=== PATIENT | female | born 1975 | race Caucasian/White ===

== ENCOUNTER 2021-08-26 09:34 | Inpatient (IN) | payer BC, SELFPAY ==
[2021-08-26] VITALS (14 sets, daily range): BP systolic 161–205; BP diastolic 94–125; PULSE 16–117; RESP 16–26; TEMP 36.8–37.6; O2SAT 89–97; BMI 28.3
--- NOTE | ~2021-08-26 | XR_ITS ---
EXAMINATION: XR CHEST CLINICAL INFORMATION: Hypoxia COMPARISON: None TECHNIQUE: Frontal view of the chest was obtained. FINDINGS: The cardiac and mediastinal contours are normal. The lung volumes are low. There are bilateral infiltrates, greatest at the lung bases. Covid infection should be considered. There is no pleural effusion or pneumothorax. There are are degenerative changes of the spine. XR/XR chest 1V IMPRESSION: Bilateral infiltrates.
[2021-08-26 10:11] LABS: COVID-19 Test Positive (Negative); IDNOW Serial# 9DD0AD1C
--- NOTE | 2021-08-26 10:11 | ECG_ITS ---
Test Reason : sob Blood Pressure : / mmHG Vent. Rate : 111 BPM Atrial Rate : 111 BPM P-R Int : 126 ms QRS Dur : 080 ms QT Int : 334 ms P-R-T Axes : 056 017 041 degrees QTc Int : 454 ms Sinus tachycardia Possible Left atrial enlargement Moderate voltage criteria for LVH, may be normal variant ( R in aVL , Donis product ) Borderline ECG No previous ECGs available Referred By: Mansi Nicole Electronically Signed By:MUNDO CARPENTER MD
[2021-08-26] MEDS: dexAMETHasone sod phosphate 4 MG/ML VIAL 6 MG IVPUSH (10:27)
[2021-08-26] MEDS: Albuterol Sulfate 90 MCG 8 GM INHALER 4 PUFF INHALE ×3 (10:34→20:17)
--- NOTE | 2021-08-26 10:54 | ED_ITS ---
HPI - General Adult General Chief complaint: General Medical Stated complaint: PERSISTENT SOB Time Seen by Provider: 08/26/21 09:59 Source: patient and EMS Mode of arrival: EMS History of Present Illness HPI narrative: 46-year-old female with no significant past medical history presenting to the ED complaining of dry cough, SOB, chest tightness, hypertension/tachycardia and hypoxia x3 days s/p obtaining 1st dose of Pfizer COVID-19 vaccine. denies fever, chills, abdominal pain, nausea, vomiting, LE edema, calf pain, history of blood clots, sick contacts, recent travel Related Data Home Medications Medication Instructions Recorded Confirmed albuterol sulfate 90 mcg/actuation 2 puff INHALATION Q4H PRN 08/26/21 08/26/21 aerosol inhaler multivitamin 1 tab PO DAILY 08/26/21 08/26/21 naproxen sodium 220 mg tablet 220 mg PO BID PRN 08/26/21 08/26/21 (Aleve) Allergies Allergy/AdvReac Type Severity Reaction Status Date / Time No Known Allergies Allergy Unverified 08/26/21 10:10 Review of Systems Review of Systems: Constitutional: No Fever, No Chills,No Fatigue, No Malaise ENT/Mouth: No Ear Pain, No sore throat, No Rhinorrhea, No Swallowing Difficulty Eyes: No Eye Pain, No Swelling, No Redness, No Vision Changes Cardiovascular: + Chest tightness, + SOB, No Dyspnea on Exertion, No Orthopnea, No Edema, No Palpitations Respiratory: + Cough, No Sputum, No Wheezing Gastrointestinal: No Nausea, No Vomiting, No Diarrhea, No Constipation, No Abdominal pain Genitourinary: No Dysuria, No Urinary Frequency, No Flank Pain,No Hesitancy Musculoskeletal: No joint pain, No Myalgias, No Joint Swelling Skin: No Skin Lesions, No rash Neuro: No Weakness, No Dizziness, No Headache Yes all other systems are reviewed and are negative [facility] Past Medical History Attestation statement: The following information was validated with the patient. Social History Social History Smoked in Last 30 Days: No Use of substances other than those prescribed or required for medical reasons: No Advance Directives: No Advance Directives Information Provided: Yes Physical Exam Vital Signs: Vital Signs: Last Vital Signs Temp 99.7 F 08/26/21 11:29 Pulse 96 08/26/21 12:45 Resp 22 H 08/26/21 11:29 BP 180/110 H 08/26/21 12:45 Pulse Ox 94 08/26/21 11:29 Body Mass Index 28.3 Const: General: cooperative, alert and awake Orientation/consciousness: patient oriented x3 Limitations: no limitations HENMT: Head: Yes normal to inspection Ears: hearing grossly normal bilaterally General nose exam: Normal external nose present Face and sinus: Yes normal facial exam Eyes: General: appearance normal, both eyes and all related structures EOM: EOMs intact bilaterally Neck: Neck: Yes normal visual inspection and Yes no meningeal signs Resp: Effort & Inspection: normal respiratory effort Auscultation: clear to auscultation bilaterally, no rales, no rhonchi and no wheezes Cardio: Rate: regular rate and tachycardic Heart sounds: S1 normal heart sound present and S2 normal heart sound present GI: Inspection: Yes normal to inspection Palpation (GI): Soft to palpation, nontender and no guarding Skin: Rashes: no rashes Wounds: no wounds Neuro: General: patient oriented x3 and no meningeal signs Gait exam (Neuro): Normal gait present Extrem: General: Yes normal to inspection, Yes no pedal edema and Yes no calf tenderness Course Course Course Narrative: -1100-- COVID-19 positive -1224-- no leukocytosis, H&H stable. D-dimer negative > PE unlikely. Glucose 327, AST/ ALT elevated, ferritin/LDH/ CRP elevated XR chest 1V IMPRESSION: Bilateral infiltrates. >> IV Ceftriaxone and Azithromycin ordered -BP still very elevated > 10mg IV Labetolol ordered. Plan for admission Medical Decision Making [facility] Narrative Medical decision making narrative: 46-year-old female with no significant past medical history presenting to the ED complaining of dry cough, SOB, chest tightness, hypertension/tachycardia and hypoxia x3 days s/p obtaining 1st dose of i'mma COVID-19 vaccine. on exam hypertensive, tachycardic, satting 89% on RA increased to 93% on 2L NC, lungs CTA, no pedal edema. Concern for COVID-19 /viral syndrome vs PE. Rule out ACS and pneumonia. Plan: EKG, labs, COVID-19 testing, CXR, Albuterol, Decadron, re-evaluation Lab Data Result diagrams: 08/26/21 11:11 08/26/21 11:11 Labs: Lab Results 08/26/21 08/26/21 08/26/21 Range/Units 09:57 11:11 11:11 WBC 6.3 (4.8-10.8) X10*3/uL RBC 5.63 H (4.20-5.50) X10*6/uL Hgb 14.9 (12.0-16.0) g/dl Hct 46.1 (37.0-47.0) % MCV 81.9 (80.0-98.0) fL MCH 26.5 L (27.0-33.0) pg MCHC 32.3 (31.0-35.0) g/dl RDW 14.3 (11.0-16.0) % Plt Count 214 (160-400) X10*3/uL MPV 9.5 (9.4-12.3) fL Immature Gran % (Auto) Cancelled Neut % (Auto) Cancelled Lymph % (Auto) Cancelled [place] % (Auto) Cancelled Eos % (Auto) Cancelled Baso % (Auto) Cancelled Lymph # (Auto) Cancelled [place] # (Auto) Cancelled Eos # (Auto) Cancelled Baso # (Auto) Cancelled Abs Immat Gran (auto) Cancelled Absolute Neuts (auto) Cancelled Absolute Nucleated RBC 0.000 (0.0-0.012) X10*3/uL Nucleated RBC % (auto) 0.0 (0.0-0.2) /100WBC Neutrophils % (Manual) 76 H (45-73) % Band Neutrophils % 0 L (3-5) % Lymphocytes % (Manual) 13 L (20-40) % Atypical Lymphs % (Man) 4 (0-6) % Monocytes % (Manual) 5 (2-11) % Basophils % (Manual) 2 (0-2) % Abs Neuts (Manual) 4.8 (2.0-8.3) X10*3/uL Lymphocytes # (Manual) 0.8 L (1.2-4.9) X10*3/uL Atyp Lymphs # (Manual) 0.3 x10*3/uL Monocytes # (Manual) 0.3 (0.1-1.2) X10*3/uL Basophils # (Manual) 0.1 (0.0-0.2) X10*3/uL Platelet Estimate NORMAL (NORMAL) Plt Morphology Comment NORMAL RBC Morphology NORMAL D-Dimer High Sensitivty 187 NG/ML Sodium (135-145) mmol/L Potassium (3.3-5.1) mmol/L Chloride (96-108) mmol/L Carbon Dioxide (22-29) mmol/L Anion Gap (12-20) BUN (9-16) mg/dL Creatinine (0.5-1.4) mg/dL Estim Creat Clear Calc Estimated GFR Random Glucose (60-115) mg/dL Lactic Acid (0.5-2.0) mmol/L Calcium (8.4-10.2) mg/dL Magnesium (1.6-2.6) mg/dL Ferritin (10-250) ng/mL Total Bilirubin (0.0-1.0) mg/dL Direct Bilirubin (0.0-0.5) mg/dL AST (5-31) U/L ALT (0-31) U/L Alkaline Phosphatase (39-117) U/L Lactate Dehydrogenase (122-220) U/L Troponin I High Sens (<3.5-17.0) ng/L C-Reactive Protein (< or = 0.50) mg/dL B-Natriuretic Peptide (<100) pg/mL Total Protein (6.5-8.0) g/dL Albumin (3.5-5.0) g/dL COVID-19 ([facility]) Positive A (Negative) COVID-19 Clin Com See Note 08/26/21 08/26/21 08/26/21 Range/Units 11:11 11:11 11:11 WBC (4.8-10.8) X10*3/uL RBC (4.20-5.50) X10*6/uL Hgb (12.0-16.0) g/dl Hct (37.0-47.0) % MCV (80.0-98.0) fL MCH (27.0-33.0) pg MCHC (31.0-35.0) g/dl RDW (11.0-16.0) % Plt Count (160-400) X10*3/uL MPV (9.4-12.3) fL Immature Gran % (Auto) Neut % (Auto) Lymph % (Auto) [place] % (Auto) Eos % (Auto) Baso % (Auto) Lymph # (Auto) [place] # (Auto) Eos # (Auto) Baso # (Auto) Abs Immat Gran (auto) Absolute Neuts (auto) Absolute Nucleated RBC (0.0-0.012) X10*3/uL Nucleated RBC % (auto) (0.0-0.2) /100WBC Neutrophils % (Manual) (45-73) % Band Neutrophils % (3-5) % Lymphocytes % (Manual) (20-40) % Atypical Lymphs % (Man) (0-6) % Monocytes % (Manual) (2-11) % Basophils % (Manual) (0-2) % Abs Neuts (Manual) (2.0-8.3) X10*3/uL Lymphocytes # (Manual) (1.2-4.9) X10*3/uL Atyp Lymphs # (Manual) x10*3/uL Monocytes # (Manual) (0.1-1.2) X10*3/uL Basophils # (Manual) (0.0-0.2) X10*3/uL Platelet Estimate (NORMAL) Plt Morphology Comment RBC Morphology D-Dimer High Sensitivty NG/ML Sodium 138 (135-145) mmol/L Potassium 3.8 (3.3-5.1) mmol/L Chloride 104 (96-108) mmol/L Carbon Dioxide 21 L (22-29) mmol/L Anion Gap 17 (12-20) BUN 9 (9-16) mg/dL Creatinine 0.72 (0.5-1.4) mg/dL Estim Creat Clear Calc 89.7 Estimated GFR > 60 Random Glucose 327 H (60-115) mg/dL Lactic Acid 1.4 (0.5-2.0) mmol/L Calcium 8.4 (8.4-10.2) mg/dL Magnesium 2.0 (1.6-2.6) mg/dL Ferritin (10-250) ng/mL Total Bilirubin 0.4 (0.0-1.0) mg/dL Direct Bilirubin 0.2 (0.0-0.5) mg/dL AST 86 H (5-31) U/L ALT 117 H (0-31) U/L Alkaline Phosphatase 87 (39-117) U/L Lactate Dehydrogenase 412 H (122-220) U/L Troponin I High Sens 9.6 (<3.5-17.0) ng/L C-Reactive Protein 10.81 H (< or = 0.50) mg/dL B-Natriuretic Peptide < 10 (<100) pg/mL Total Protein 6.9 (6.5-8.0) g/dL Albumin 3.9 (3.5-5.0) g/dL COVID-19 ([facility]) (Negative) COVID-19 Clin Com 08/26/21 Range/Units 11:11 WBC (4.8-10.8) X10*3/uL RBC (4.20-5.50) X10*6/uL Hgb (12.0-16.0) g/dl Hct (37.0-47.0) % MCV (80.0-98.0) fL MCH (27.0-33.0) pg MCHC (31.0-35.0) g/dl RDW (11.0-16.0) % Plt Count (160-400) X10*3/uL MPV (9.4-12.3) fL Immature Gran % (Auto) Neut % (Auto) Lymph % (Auto) [place] % (Auto) Eos % (Auto) Baso % (Auto) Lymph # (Auto) [place] # (Auto) Eos # (Auto) Baso # (Auto) Abs Immat Gran (auto) Absolute Neuts (auto) Absolute Nucleated RBC (0.0-0.012) X10*3/uL Nucleated RBC % (auto) (0.0-0.2) /100WBC Neutrophils % (Manual) (45-73) % Band Neutrophils % (3-5) % Lymphocytes % (Manual) (20-40) % Atypical Lymphs % (Man) (0-6) % Monocytes % (Manual) (2-11) % Basophils % (Manual) (0-2) % Abs Neuts (Manual) (2.0-8.3) X10*3/uL Lymphocytes # (Manual) (1.2-4.9) X10*3/uL Atyp Lymphs # (Manual) x10*3/uL Monocytes # (Manual) (0.1-1.2) X10*3/uL Basophils # (Manual) (0.0-0.2) X10*3/uL Platelet Estimate (NORMAL) Plt Morphology Comment RBC Morphology D-Dimer High Sensitivty NG/ML Sodium (135-145) mmol/L Potassium (3.3-5.1) mmol/L Chloride (96-108) mmol/L Carbon Dioxide (22-29) mmol/L Anion Gap (12-20) BUN (9-16) mg/dL Creatinine (0.5-1.4) mg/dL Estim Creat Clear Calc Estimated GFR Random Glucose (60-115) mg/dL Lactic Acid (0.5-2.0) mmol/L Calcium (8.4-10.2) mg/dL Magnesium (1.6-2.6) mg/dL Ferritin 520 H (10-250) ng/mL Total Bilirubin (0.0-1.0) mg/dL Direct Bilirubin (0.0-0.5) mg/dL AST (5-31) U/L ALT (0-31) U/L Alkaline Phosphatase (39-117) U/L Lactate Dehydrogenase (122-220) U/L Troponin I High Sens (<3.5-17.0) ng/L C-Reactive Protein (< or = 0.50) mg/dL B-Natriuretic Peptide (<100) pg/mL Total Protein (6.5-8.0) g/dL Albumin (3.5-5.0) g/dL COVID-19 ([facility]) (Negative) COVID-19 Clin Com ECG Data Attestation: I personally reviewed and interpreted this ECG as follows: Interpretation: EKG sinus tachycardia rate of 111. QTC 454. Nonischemic/no STEMI Critical Care Time Critical Care Time Critical Care Time: Yes Total Critical Care Time: 36 Attestation: greater than 36 minutes of critical care time was spent evaluating patient, performing chart review & re-evaluating patient Discharge Plan Discharge Clinical Impression: Pneumonia due to COVID-19 virus, Hypertension Patient Disposition: Admitted As Inpatient
[2021-08-26 11:21] LABS: Hematocrit 46.1 % (37.0-47.0); Mean Corpuscular HGB Conc 32.3 g/dl (31.0-35.0); Mean Corpuscular Hemoglobin 26.5 pg (27.0-33.0); Mean Corpuscular Volume 81.9 fL (80.0-98.0); Mean Platelet Volume 9.5 fL (9.4-12.3); Platelet Count 214 X10*3/uL (160-400); Red Blood Count 5.63 X10*6/uL (4.20-5.50); Red Cell Distribution Width 14.3 % (11.0-16.0); White Blood Count 6.3 X10*3/uL (4.8-10.8)
[2021-08-26 11:25] LABS: Hemoglobin 14.9 g/dl (12.0-16.0)
[2021-08-26 11:27] LABS: D Dimer High Sensitivity 187 NG/ML
[2021-08-26] MEDS: Acetaminophen 325 MG TABLET 650 MG PO (11:28)
[2021-08-26] MEDS: 0.9 % Sodium Chloride 1,000 ML 999 ML IVCONT (11:28)
[2021-08-26 11:34] LABS: Lactic Acid 1.4 mmol/L (0.5-2.0)
[2021-08-26 11:39] LABS: Alanine Aminotransferase 117 U/L (0-31); Albumin Level 3.9 g/dL (3.5-5.0); Alkaline Phosphatase 87 U/L (39-117); Anion Gap 17 (12-20); Aspartate Amino Transferase 86 U/L (5-31); Bilirubin Direct 0.2 mg/dL (0.0-0.5); Bilirubin Total 0.4 mg/dL (0.0-1.0); Blood Urea Nitrogen 9 mg/dL (9-16); C Reactive Protein 10.81 mg/dL (< or = 0.50); Calcium 8.4 mg/dL (8.4-10.2); Carbon Dioxide 21 mmol/L (22-29); Chloride 104 mmol/L (96-108); Creatinine Clr Calc Pharmacy 89.7; Estimated Glomerular Filt Rate > 60; Glucose Random 327 mg/dL (60-115); Potassium 3.8 mmol/L (3.3-5.1); Sodium 138 mmol/L (135-145); Total Protein 6.9 g/dL (6.5-8.0)
[2021-08-26 11:44] LABS: B Type Natriuretic Peptide < 10 pg/mL (<100); Troponin-I High Sensitivity 9.6 ng/L (<3.5-17.0)
[2021-08-26 11:52] LABS: Atypical Lymph Absolute Manual 0.3 x10*3/uL; Atypical Lymphs Percent Manual 4 % (0-6); Basophils Abs Manual 0.1 X10*3/uL (0.0-0.2); Basophils Percent Manual 2 % (0-2); Lymphocytes Absolute Manual 0.8 X10*3/uL (1.2-4.9); Lymphocytes Percent Manual 13 % (20-40); Monocytes Absolute Manual 0.3 X10*3/uL (0.1-1.2); Monocytes Percent Manual 5 % (2-11); Neutrophils Percent Manual 76 % (45-73)
[2021-08-26 11:53] LABS: Band Neutrophils Percent 0 % (3-5); Neutrophils Absolute Manual 4.8 X10*3/uL (2.0-8.3)
[2021-08-26 11:54] LABS: Lactate Dehydrogenase 412 U/L (122-220)
[2021-08-26 11:56] LABS: Platelet Estimate NORMAL (NORMAL); Platelet Morphology Comment NORMAL; RBC Morphology NORMAL
[2021-08-26 11:58] LABS: Ferritin 520 ng/mL (10-250)
[2021-08-26] MEDS: Labetalol HCL 100 MG/20 ML VIAL 10 MG IVPUSH (12:45)
[2021-08-26] MEDS: cefTRIAXone sodium 1 GM in 0.9 % Sodium Chloride 50 ML IV (12:46)
[2021-08-26] MEDS: Azithromycin 500 MG in 0.9 % Sodium Chloride 250 ML 125 MG IV (14:19)
[2021-08-26] MEDS: amLODIPine Besylate 5 MG TABLET PO (14:19)
[2021-08-26] MEDS: Enoxaparin Sodium 40 MG/0.4 ML SYRINGE SUBCUT (14:19)
[2021-08-26] MEDS: 0.9 % Sodium Chloride Flush 3 ML SYRINGE IVFLUSH ×2 (14:20→23:11)
--- NOTE | 2021-08-26 14:39 | PM.IMHP ---
History of Present Illness Date of Service: 08/26/21 Chief Complaint: Shortness of breath A 46 old lady with no past medical history presents to the hospital complaining of difficulty breathing and weakness for 3 days prior to admission. The patient reported that she told the 1st dose of the vaccine on Wednesday as requirement for job. She does not recall having contact with sick person recently. Starting Wednesday after the showed you start having difficulty breathing and generalized pain that worsened over the course of the last 2 days to shortness of breath even at rest sometimes. In the emergency her oxygen level was noted to be 89 at room air improved to 90s with 2 L of oxygen. Chest x-ray suggestive of viral pneumonia Admitted for further evaluation and treatment. Review of Systems Review of Systems: Reporting chills and generalized weakness No chest pain, palpitation Dyspnea on exertion and shortness of breath No abdominal pain, nausea or vomiting No urinary symptoms No any rash or wounds PMFSH Social History Smoked in Last 30 Days: No Use of substances other than those prescribed or required for medical reasons: No Advance Directives: No Advance Directives Information Provided: Yes Meds Allergies Allergy/AdvReac Type Severity Reaction Status Date / Time No Known Allergies Allergy Unverified 08/26/21 10:10 Active Medications: Current Medications Acetaminophen (Acetaminophen 325 Mg Tablet) 650 mg PO Q6H PRN PRN Reason: Pain, Mild (Pain Scale 1-3) Amlodipine Besylate (Amlodipine Besylate 5 Mg Tablet) 5 mg PO DAILY [facility]; Protocol Last Admin: 08/26/21 14:19 Dose: 5 mg Documented by: Dexamethasone Sodium Phosphate (Dexamethasone Sod Phosphate 4 Mg/Ml Vial) 6 mg IVPUSH DAILY [facility] Enoxaparin Sodium (Enoxaparin Sodium 40 Mg/0.4 Ml Syringe) 40 mg SUBCUT Q24H [facility] Last Admin: 08/26/21 14:19 Dose: 40 mg Documented by: Ondansetron HCl (Ondansetron Hcl 4 Mg/2 Ml Vial) 4 mg IVPUSH Q8H PRN PRN Reason: Nausea and Vomiting Pharmacy Consult (Consult Rx Perform Med Rec) 1 each MISCELLANE ONCE PRN PRN Reason: Consult order Sodium Chloride (0.9 % Sodium Chloride Flush 3 Ml Syringe) 3 ml IVFLUSH QSHIFT [facility] Last Admin: 08/26/21 14:20 Dose: 3 ml Documented by: Home Medications Medication Instructions Recorded Confirmed Last Taken Type albuterol sulfate 90 mcg/actuation 2 puff INHALATION Q4H PRN 08/26/21 08/26/21 Unknown History aerosol inhaler multivitamin 1 tab PO DAILY 08/26/21 08/26/21 Unknown History naproxen sodium 220 mg tablet 220 mg PO BID PRN 08/26/21 08/26/21 Unknown History (Aleve) Physical Exam Vital Signs and Narrative: Vital Signs: Last Vital Signs Temp 98.3 F 08/26/21 14:17 Pulse 96 08/26/21 14:17 Resp 22 H 08/26/21 14:17 BP 188/110 H 08/26/21 14:17 Pulse Ox 94 08/26/21 14:17 Body Mass Index 28.3 Const: Other: Constitutional : Alert, oriented, not in distress Neck : Normal inspection, Supple Cardiovascular : RRR, no lower extremity edema Respiratory : Chest wall moving bilaterally, not using accessory muscles, in mild respiratory distress, oxygen supplement Gastrointestinal: soft, lax, Normal bowel sounds, Non tender Skin : Warm, Dry Neurological : Alert & oriented x3, No focal deficit Results Labs CBC and Chem 7: 08/26/21 11:11 08/26/21 11:11 Labs: Laboratory Results - last 24 hr 08/26/21 08/26/21 08/26/21 09:57 11:11 11:11 MCV 81.9 MCH 26.5 L MCHC 32.3 RDW 14.3 Plt Count 214 MPV 9.5 Immature Gran % (Auto) Cancelled Neut % (Auto) Cancelled Lymph % (Auto) Cancelled [place] % (Auto) Cancelled Eos % (Auto) Cancelled Baso % (Auto) Cancelled Lymph # (Auto) Cancelled [place] # (Auto) Cancelled Eos # (Auto) Cancelled Baso # (Auto) Cancelled Abs Immat Gran (auto) Cancelled Absolute Neuts (auto) Cancelled Absolute Nucleated RBC 0.000 Nucleated RBC % (auto) 0.0 Neutrophils % (Manual) 76 H Band Neutrophils % 0 L Lymphocytes % (Manual) 13 L Atypical Lymphs % (Man) 4 Monocytes % (Manual) 5 Basophils % (Manual) 2 Abs Neuts (Manual) 4.8 Lymphocytes # (Manual) 0.8 L Atyp Lymphs # (Manual) 0.3 Monocytes # (Manual) 0.3 Basophils # (Manual) 0.1 Platelet Estimate NORMAL Plt Morphology Comment NORMAL RBC Morphology NORMAL D-Dimer High Sensitivty 187 Anion Gap Estim Creat Clear Calc Estimated GFR Random Glucose Lactic Acid Calcium Magnesium Ferritin Total Bilirubin Direct Bilirubin AST ALT Alkaline Phosphatase Lactate Dehydrogenase Troponin I High Sens C-Reactive Protein B-Natriuretic Peptide Total Protein Albumin COVID-19 ([facility]) Positive A COVID-19 Clin Com See Note 08/26/21 08/26/21 08/26/21 11:11 11:11 11:11 MCV MCH MCHC RDW Plt Count MPV Immature Gran % (Auto) Neut % (Auto) Lymph % (Auto) [place] % (Auto) Eos % (Auto) Baso % (Auto) Lymph # (Auto) [place] # (Auto) Eos # (Auto) Baso # (Auto) Abs Immat Gran (auto) Absolute Neuts (auto) Absolute Nucleated RBC Nucleated RBC % (auto) Neutrophils % (Manual) Band Neutrophils % Lymphocytes % (Manual) Atypical Lymphs % (Man) Monocytes % (Manual) Basophils % (Manual) Abs Neuts (Manual) Lymphocytes # (Manual) Atyp Lymphs # (Manual) Monocytes # (Manual) Basophils # (Manual) Platelet Estimate Plt Morphology Comment RBC Morphology D-Dimer High Sensitivty Anion Gap 17 Estim Creat Clear Calc 89.7 Estimated GFR > 60 Random Glucose 327 H Lactic Acid 1.4 Calcium 8.4 Magnesium 2.0 Ferritin Total Bilirubin 0.4 Direct Bilirubin 0.2 AST 86 H ALT 117 H Alkaline Phosphatase 87 Lactate Dehydrogenase 412 H Troponin I High Sens 9.6 C-Reactive Protein 10.81 H B-Natriuretic Peptide < 10 Total Protein 6.9 Albumin 3.9 COVID-19 ([facility]) COVID-19 Clin Com 08/26/21 11:11 MCV MCH MCHC RDW Plt Count MPV Immature Gran % (Auto) Neut % (Auto) Lymph % (Auto) [place] % (Auto) Eos % (Auto) Baso % (Auto) Lymph # (Auto) [place] # (Auto) Eos # (Auto) Baso # (Auto) Abs Immat Gran (auto) Absolute Neuts (auto) Absolute Nucleated RBC Nucleated RBC % (auto) Neutrophils % (Manual) Band Neutrophils % Lymphocytes % (Manual) Atypical Lymphs % (Man) Monocytes % (Manual) Basophils % (Manual) Abs Neuts (Manual) Lymphocytes # (Manual) Atyp Lymphs # (Manual) Monocytes # (Manual) Basophils # (Manual) Platelet Estimate Plt Morphology Comment RBC Morphology D-Dimer High Sensitivty Anion Gap Estim Creat Clear Calc Estimated GFR Random Glucose Lactic Acid Calcium Magnesium Ferritin 520 H Total Bilirubin Direct Bilirubin AST ALT Alkaline Phosphatase Lactate Dehydrogenase Troponin I High Sens C-Reactive Protein B-Natriuretic Peptide Total Protein Albumin COVID-19 ([facility]) COVID-19 Clin Com Imaging Radiologist's Impressions: Impressions Chest X-Ray 08/26/21 10:11 IMPRESSION: Bilateral infiltrates. Assessment and Plan (1) Acute respiratory failure with hypoxia: Status: Acute (2) Pneumonia due to COVID-19 virus: Status: Acute (3) Hypertensive urgency: Status: Acute A 46 old lady with no past medical history presents to the hospital complaining of difficulty breathing and weakness for 3 days prior to admission. Acute hypoxic respiratory failures Secondary to COVID-19 infection Hold antibiotics for now Start DEXA Oxygen supplement, titrate as tolerated To get ID evaluation Hypertensive urgency Blood pressure elevated as 210/120 Received IV meds including labetalol and hydralazine Start amlodipine daily Start hydralazine p.o. t.i.d. Continuous monitoring DVT PPX Lovenox Quality Stroke Does the patient have a stroke diagnosis?: No VTE Prior VTE?: No VTE Risk Level:: Medical - moderate - high VTE Device Contraindication: Treatment Not Indicated VTE Drug Contraindication: N/A - Med Ordered
[2021-08-26] MEDS: hydrALAZINE HCl 20 MG/ML VIAL 10 MG IVPUSH (15:28)
--- NOTE | 2021-08-26 19:55 | PC.NURSE ---
REPORT TAKEN FROM MATEUSZ RN, FIRST CONTACT WITH PT. SITTING UP IN BED A&Ox4 SKIN PWD, RESPIRATIONS EVEN UNLABORED. BP IMPROVED, OTHER VSS. AWAITING BED ASSIGNMENT FOR ADMISSION. AWARE OF PLAN OF CARE.
--- NOTE | 2021-08-26 23:04 | PC.NURSE ---
PT AMB TO BATHROOM STEADY GAIT, OFFERS NO COMPLAINTS AT THIS TIME. AWAITING BED ASSIGNMENT FOR ADMISSION. AWARE OF PLAN OF CARE.
[2021-08-26] MEDS: hydrALAZINE HCl 25 MG TABLET PO (23:10)
[2021-08-27] VITALS (17 sets, daily range): BP systolic 128–209; BP diastolic 79–110; PULSE 78–117; RESP 16–34; TEMP 36.1–37.8; O2SAT 89–93
[2021-08-27 07:15] LABS: Hematocrit 45.8 % (37.0-47.0); Hemoglobin 14.8 g/dl (12.0-16.0); Mean Corpuscular HGB Conc 32.3 g/dl (31.0-35.0); Mean Corpuscular Hemoglobin 26.3 pg (27.0-33.0); Mean Corpuscular Volume 81.5 fL (80.0-98.0); Mean Platelet Volume 9.6 fL (9.4-12.3); Platelet Count 273 X10*3/uL (160-400); Red Blood Count 5.62 X10*6/uL (4.20-5.50); Red Cell Distribution Width 14.5 % (11.0-16.0); White Blood Count 8.4 X10*3/uL (4.8-10.8)
[2021-08-27 07:36] LABS: Anion Gap 18 (12-20); Blood Urea Nitrogen 10 mg/dL (9-16); Calcium 8.5 mg/dL (8.4-10.2); Carbon Dioxide 17 mmol/L (22-29); Chloride 109 mmol/L (96-108); Creatinine Clr Calc Pharmacy 89.7; Estimated Glomerular Filt Rate > 60; Glucose Random 268 mg/dL (60-115); Potassium 4.1 mmol/L (3.3-5.1); Sodium 140 mmol/L (135-145)
[2021-08-27] MEDS: Albuterol Sulfate 90 MCG 8 GM INHALER 4 PUFF INHALE ×3 (08:02→20:13)
[2021-08-27] MEDS: hydrALAZINE HCl 20 MG/ML VIAL 10 MG IVPUSH (08:18)
[2021-08-27] MEDS: amLODIPine Besylate 10 MG TABLET PO (08:21)
[2021-08-27] MEDS: 0.9 % Sodium Chloride Flush 3 ML SYRINGE IVFLUSH ×3 (08:22→19:54)
[2021-08-27] MEDS: dexAMETHasone sod phosphate 4 MG/ML VIAL 6 MG IVPUSH (08:22)
[2021-08-27] MEDS: hydrALAZINE HCl 25 MG TABLET PO ×3 (08:22→19:54)
--- NOTE | 2021-08-27 10:12 | MHC.CM.PN ---
Met with patient in regards to dischrge planning. Patient lives with her , ambulates independently and had no services prior to coming to the hospital. Patient is currently on oxygen, but not at home. Patient received 1st Covid vaccine on 08/23. Tested positive for Covid on 08/26. PCP verified. No services anticipated to be needed because patient is not homebound. will transport patient home when medically stable. Continue to monitor for d/c needs.
--- NOTE | 2021-08-27 10:17 | P.PNIM_ITS ---
Subjective Subjective Date of Service: 08/27/21 Interval History: the patient was seen and evaluated this morning Laying in bed, in respiratory distress, tachypneic BP remains elevated Denies any fever, chills or shortness of breath No reported other overnight events. Systemic review: Reporting chills and generalized weakness No chest pain, palpitation Dyspnea on exertion and shortness of breath No abdominal pain, nausea or vomiting No urinary symptoms No any rash or wounds Physical Exam Vital Signs: Vital Signs: Last Vital Signs Temp 100.1 F 08/27/21 10:11 Pulse 108 H 08/27/21 10:11 Resp 34 H 08/27/21 10:11 BP 176/99 H 08/27/21 10:11 Pulse Ox 93 08/27/21 10:11 Body Mass Index 28.3 Const: Other: Constitutional : Alert, oriented, not in distress Neck : Normal inspection, Supple Cardiovascular : RRR, no lower extremity edema Respiratory : Chest wall moving bilaterally, not using accessory muscles, tachypnea, in respiratory distress, oxygen supplement Gastrointestinal: soft, lax, Normal bowel sounds, Non tender Skin : Warm, Dry Neurological : Alert & oriented x3, No focal deficit Objective Data Active Medications Acetaminophen (Acetaminophen 325 Mg Tablet) 650 mg PO Q6H PRN PRN Reason: Pain, Mild (Pain Scale 1-3) Albuterol Sulfate (Albuterol Sulfate 90 Mcg 8 Gm Inhaler) 4 puff INHALE RQ4H WHILE AWAKE [facility] Last Admin: 08/27/21 08:02 Dose: 4 puff Documented by: YANCY Amlodipine Besylate (Amlodipine Besylate 10 Mg Tablet) 10 mg PO DAILY [facility]; Protocol Last Admin: 08/27/21 08:21 Dose: 10 mg Documented by: MARY Dexamethasone Sodium Phosphate (Dexamethasone Sod Phosphate 4 Mg/Ml Vial) 6 mg IVPUSH DAILY [facility] Last Admin: 08/27/21 08:22 Dose: 6 mg Documented by: MARY Enoxaparin Sodium (Enoxaparin Sodium 40 Mg/0.4 Ml Syringe) 40 mg SUBCUT Q24H [facility] Last Admin: 08/26/21 14:19 Dose: 40 mg Documented by: ROXANAOPEEnrrique Hydralazine HCl (Hydralazine Hcl 25 Mg Tablet) 25 mg PO TID [facility]; Protocol Last Admin: 11/24/21 08:22 Dose: 25 mg Documented by: MARY Labetalol HCl (Labetalol Hcl 100 Mg Tablet) 100 mg PO DAILY [facility]; Protocol Ondansetron HCl (Ondansetron Hcl 4 Mg/2 Ml Vial) 4 mg IVPUSH Q8H PRN PRN Reason: Nausea and Vomiting Pharmacy Consult (Consult Rx Perform Med Rec) 1 each MISCELLANE ONCE PRN PRN Reason: Consult order Sodium Chloride (0.9 % Sodium Chloride Flush 3 Ml Syringe) 3 ml IVFLUSH QSHIFT [facility] Last Admin: 08/27/21 08:22 Dose: 3 ml Documented by: MARY Labs CBC & Chem 7: 08/27/21 06:55 08/27/21 06:55 Labs: Laboratory Results - last 24 hr 08/26/21 08/26/21 08/26/21 11:11 11:11 11:11 MCV 81.9 MCH 26.5 L MCHC 32.3 RDW 14.3 Plt Count 214 MPV 9.5 Immature Gran % (Auto) Cancelled Neut % (Auto) Cancelled Lymph % (Auto) Cancelled Woodruff % (Auto) Cancelled Eos % (Auto) Cancelled Baso % (Auto) Cancelled Lymph # (Auto) Cancelled Woodruff # (Auto) Cancelled Eos # (Auto) Cancelled Baso # (Auto) Cancelled Abs Immat Gran (auto) Cancelled Absolute Neuts (auto) Cancelled Absolute Nucleated RBC 0.000 Nucleated RBC % (auto) 0.0 Neutrophils % (Manual) 76 H Band Neutrophils % 0 L Lymphocytes % (Manual) 13 L Atypical Lymphs % (Man) 4 Monocytes % (Manual) 5 Basophils % (Manual) 2 Abs Neuts (Manual) 4.8 Lymphocytes # (Manual) 0.8 L Atyp Lymphs # (Manual) 0.3 Monocytes # (Manual) 0.3 Basophils # (Manual) 0.1 Platelet Estimate NORMAL Plt Morphology Comment NORMAL RBC Morphology NORMAL D-Dimer High Sensitivty 187 Anion Gap 17 Estim Creat Clear Calc 89.7 Estimated GFR > 60 Random Glucose 327 H Lactic Acid Calcium 8.4 Magnesium 2.0 Ferritin Total Bilirubin 0.4 Direct Bilirubin 0.2 AST 86 H ALT 117 H Alkaline Phosphatase 87 Lactate Dehydrogenase 412 H Troponin I High Sens C-Reactive Protein 10.81 H B-Natriuretic Peptide Total Protein 6.9 Albumin 3.9 08/26/21 08/26/21 08/26/21 11:11 11:11 11:11 MCV MCH MCHC RDW Plt Count MPV Immature Gran % (Auto) Neut % (Auto) Lymph % (Auto) Woodruff % (Auto) Eos % (Auto) Baso % (Auto) Lymph # (Auto) Woodruff # (Auto) Eos # (Auto) Baso # (Auto) Abs Immat Gran (auto) Absolute Neuts (auto) Absolute Nucleated RBC Nucleated RBC % (auto) Neutrophils % (Manual) Band Neutrophils % Lymphocytes % (Manual) Atypical Lymphs % (Man) Monocytes % (Manual) Basophils % (Manual) Abs Neuts (Manual) Lymphocytes # (Manual) Atyp Lymphs # (Manual) Monocytes # (Manual) Basophils # (Manual) Platelet Estimate Plt Morphology Comment RBC Morphology D-Dimer High Sensitivty Anion Gap Estim Creat Clear Calc Estimated GFR Random Glucose Lactic Acid 1.4 Calcium Magnesium Ferritin 520 H Total Bilirubin Direct Bilirubin AST ALT Alkaline Phosphatase Lactate Dehydrogenase Troponin I High Sens 9.6 C-Reactive Protein B-Natriuretic Peptide < 10 Total Protein Albumin 08/27/21 08/27/21 06:55 06:55 MCV 81.5 MCH 26.3 L MCHC 32.3 RDW 14.5 Plt Count 273 D MPV 9.6 Immature Gran % (Auto) Neut % (Auto) Lymph % (Auto) Woodruff % (Auto) Eos % (Auto) Baso % (Auto) Lymph # (Auto) Woodruff # (Auto) Eos # (Auto) Baso # (Auto) Abs Immat Gran (auto) Absolute Neuts (auto) Absolute Nucleated RBC 0.000 Nucleated RBC % (auto) 0.0 Neutrophils % (Manual) Band Neutrophils % Lymphocytes % (Manual) Atypical Lymphs % (Man) Monocytes % (Manual) Basophils % (Manual) Abs Neuts (Manual) Lymphocytes # (Manual) Atyp Lymphs # (Manual) Monocytes # (Manual) Basophils # (Manual) Platelet Estimate Plt Morphology Comment RBC Morphology D-Dimer High Sensitivty Anion Gap 18 Estim Creat Clear Calc 89.7 Estimated GFR > 60 Random Glucose 268 H Lactic Acid Calcium 8.5 Magnesium Ferritin Total Bilirubin Direct Bilirubin AST ALT Alkaline Phosphatase Lactate Dehydrogenase Troponin I High Sens C-Reactive Protein B-Natriuretic Peptide Total Protein Albumin Assessment and Plan (1) Hypertensive urgency: Status: Acute (2) Acute respiratory failure with hypoxia: Status: Acute (3) Pneumonia due to COVID-19 virus: Status: Acute (4) Sepsis due to COVID-19: Status: Acute Assessment and Plan: A 46 old lady with no past medical history presents to the hospital complaining of difficulty breathing and weakness for 3 days prior to admission. Acute hypoxic respiratory failures Secondary to sepsis due to COVID-19 infection in Resp distress Febrile, Tachycardia, Tachypnea Hold antibiotics for now continue DEXA Oxygen supplement, titrate as tolerated To get ID evaluation Hypertensive urgency Blood pressure remains elevated as 190/110 Received IV meds including labetalol and hydralazine continue amlodipine daily continue hydralazine p.o. t.i.d. Start Labetalol Continuous monitoring DVT PPX Lovenox Quality Stroke Does the patient have a stroke diagnosis?: No VTE Prior VTE?: No VTE Risk Level:: Medical - moderate - high VTE Device Contraindication: Treatment Not Indicated VTE Drug Contraindication: N/A - Med Ordered
[2021-08-27] MEDS: Labetalol HCL 100 MG TABLET PO (10:33)
[2021-08-27] MEDS: Acetaminophen 325 MG TABLET 650 MG PO (10:36)
--- NOTE | 2021-08-27 12:13 | PC.NURSE ---
patient a&ox3, vss, pt on 3l o2 nc, pt speaking in full sentences/denies sob at this time, denies pain/discomfort, will continue to monitor.
[2021-08-27] MEDS: Enoxaparin Sodium 40 MG/0.4 ML SYRINGE SUBCUT (14:33)
--- NOTE | 2021-08-27 14:36 | PC.NURSE ---
PATIENT A&OX3, NO C/O PAIN OR DISCOMFORT, AMBULATES INDEPENDENTLY TO BATHROOM, MACHINE [employer] NSR-ST 90S-100, VITALS OTHERWISE STABLE, PT MEDICATED PER ORDER, WILL CONTINUE TO MONITOR.
--- NOTE | 2021-08-27 16:55 | PC.NURSE ---
patient a&ox3, pt noted to have desat to 89%, this nurse found the patient sleeping and breathing through her mouth, upon waking patient had patient deep breathe o2 sat remained 89%, increased O2 NC to 4L and patients O2 sat increased to 91%, pt speaking in full sentences no sob noted at this time, will continue to monitor.
--- NOTE | 2021-08-27 18:45 | PC.NURSE ---
called to give report floor will call back
--- NOTE | 2021-08-27 21:34 | P.CNID_ITS ---
History of Present Illness Data of Consult Service Date: 08/27/21 Requesting physician: Mag Nettles Primary Care Provider: Judy Pierre MD [facility] Reason for consult: shortness of breath She presents with shortness of breath for three days. She had received Pfizer vaccine three days ago. She has fever and chills She has no productive sputum Review of Systems Review of Systems: Yes all other systems are reviewed and are negative PMFSH Family History Family history: reviewed and not pertinent Social History Social History Household Members: Spouse Housing: House Do you presently have visiting nurse or other home services: No Patient Tobacco Use Status: Former Tobacco user service: No Current occupational status: employed Meds Allergies Allergy/AdvReac Type Severity Reaction Status Date / Time No Known Allergies Allergy Unverified 08/26/21 10:10 Active Medications: Current Medications Acetaminophen (Acetaminophen 325 Mg Tablet) 650 mg PO Q6H PRN PRN Reason: Pain, Mild (Pain Scale 1-3) Last Admin: 08/27/21 10:36 Dose: 650 mg Documented by: Albuterol Sulfate (Albuterol Sulfate 90 Mcg 8 Gm Inhaler) 4 puff INHALE RQ4H WHILE AWAKE [facility] Last Admin: 08/27/21 20:13 Dose: 4 puff Documented by: Amlodipine Besylate (Amlodipine Besylate 10 Mg Tablet) 10 mg PO DAILY [facility]; Protocol Last Admin: 08/27/21 08:21 Dose: 10 mg Documented by: Dexamethasone Sodium Phosphate (Dexamethasone Sod Phosphate 4 Mg/Ml Vial) 6 mg IVPUSH DAILY [facility] Last Admin: 08/27/21 08:22 Dose: 6 mg Documented by: Enoxaparin Sodium (Enoxaparin Sodium 40 Mg/0.4 Ml Syringe) 40 mg SUBCUT Q24H [facility] Last Admin: 08/27/21 14:33 Dose: 40 mg Documented by: Hydralazine HCl (Hydralazine Hcl 25 Mg Tablet) 25 mg PO TID [facility]; Protocol Last Admin: 08/27/21 19:54 Dose: 25 mg Documented by: Labetalol HCl (Labetalol Hcl 100 Mg Tablet) 100 mg PO DAILY [facility]; Protocol Last Admin: 08/27/21 10:33 Dose: 100 mg Documented by: Ondansetron HCl (Ondansetron Hcl 4 Mg/2 Ml Vial) 4 mg IVPUSH Q8H PRN PRN Reason: Nausea and Vomiting Pharmacy Consult (Consult Rx Perform Med Rec) 1 each MISCELLANE ONCE PRN PRN Reason: Consult order Sodium Chloride (0.9 % Sodium Chloride Flush 3 Ml [facility]ringe) [facility] Admin: 08/27/21 19:54 Dose: 3 ml Documented by: Home Medications Medication Instructions Recorded Confirmed Last Taken Type albuterol sulfate 90 mcg/actuation 2 puff INHALATION Q4H PRN 08/26/21 08/26/21 U nknown History aerosol inhaler multivitamin 1 tab PO DAILY 08/26/21 08/26/21 Unknown History naproxen sodium 220 mg tablet 220 mg PO BID PRN 08/26/21 08/26/21 Unknown History (Aleve) Physical Exam Vital Signs: Vital Signs: Last Vital Signs Temp 96.9 F 08/27/21 19:46 Pulse 100 08/27/21 20:19 Resp 20 08/27/21 19:46 BP 189/92 H 08/27/21 19:46 Pulse Ox 91 L 08/27/21 19:46 Body Mass Index 28.3 Const: General: cooperative Eyes: General: appearance normal, both eyes and all related structures Resp: Effort & Inspection: labored Cardio: Rate: regular rate Rhythm: regular rhythm GI: Palpation (GI): nontender Skin: General skin exam: no rashes or lesions noted Extrem: General: Yes normal to inspection Results Labs CBC & Chem 7: 08/27/21 06:55 08/27/21 06:55 Labs: Short CBC 08/27/21 Range/Units 06:55 WBC 8.4 (4.8-10.8) X10*3/uL Hgb 14.8 (12.0-16.0) g/dl Hct 45.8 (37.0-47.0) % Plt Count 273 D (160-400) X10*3/uL BMP 08/27/21 06:55 Sodium 140 Potassium 4.1 Chloride 109 H Carbon Dioxide 17 L BUN 10 Creatinine 0.72 Calcium 8.5 Microbiology Microbiology Results: Microbiology 08/26/21 11:12 Blood - Venous Blood Culture - Preliminary No growth after 24 hours. 08/26/21 10:46 Blood - Venous Blood Culture - Preliminary No growth after 24 hours. Assessment and Plan (1) Sepsis due to COVID-19: Status: Acute COVID with some hypoxia on nasal cannula She has recent onset of COVID within three days and was started on steroids and oxygen Would continue oxygen Continue steroids If still has hypoxia tomorrow and remains on oxygen give Remdesivir 200 mg and then 100 mg daily for five days. Continue VTE prophylaxis.
[2021-08-28] VITALS (8 sets, daily range): BP systolic 150–169; BP diastolic 84–95; PULSE 66–101; RESP 18–20; TEMP 36.1–37.2; O2SAT 90–99
[2021-08-28 07:10] LABS: Hematocrit 43.9 % (37.0-47.0); Hemoglobin 14.3 g/dl (12.0-16.0); Mean Corpuscular HGB Conc 32.6 g/dl (31.0-35.0); Mean Corpuscular Hemoglobin 26.4 pg (27.0-33.0); Mean Platelet Volume 9.3 fL (9.4-12.3); Platelet Count 323 X10*3/uL (160-400); Red Blood Count 5.42 X10*6/uL (4.20-5.50); Red Cell Distribution Width 14.6 % (11.0-16.0); White Blood Count 8.4 X10*3/uL (4.8-10.8)
[2021-08-28] MEDS: Albuterol Sulfate 90 MCG 8 GM INHALER 4 PUFF INHALE (07:35)
[2021-08-28 07:41] LABS: Anion Gap 16 (12-20); Blood Urea Nitrogen 17 mg/dL (9-16); C Reactive Protein 7.14 mg/dL (< or = 0.50); Carbon Dioxide 21 mmol/L (22-29); Chloride 108 mmol/L (96-108); Estimated Glomerular Filt Rate > 60; Glucose Random 330 mg/dL (60-115); Lactate Dehydrogenase 341 U/L (122-220); Potassium 4.5 mmol/L (3.3-5.1); Sodium 140 mmol/L (135-145)
[2021-08-28] MEDS: hydrALAZINE HCl 25 MG TABLET PO ×3 (09:57→21:08)
[2021-08-28] MEDS: amLODIPine Besylate 10 MG TABLET PO (09:57)
[2021-08-28] MEDS: 0.9 % Sodium Chloride Flush 3 ML SYRINGE IVFLUSH ×3 (09:57→21:08)
[2021-08-28] MEDS: Labetalol HCL 100 MG TABLET PO (09:57)
[2021-08-28] MEDS: dexAMETHasone sod phosphate 4 MG/ML VIAL 6 MG IVPUSH (09:58)
--- NOTE | 2021-08-28 11:41 | P.PNIM_ITS ---
Subjective Subjective Date of Service: 08/28/21 Interval History: the patient was seen and evaluated this morning Laying in bed, in respiratory distress, tachypneic but looks comfortable o verall BP better controlled but remains elevated Denies any fever, chills or shortness of breath No reported other overnight events. Systemic review: Reporting chills and generalized weakness No chest pain, palpitation Dyspnea on exertion and shortness of breath No abdominal pain, nausea or vomiting No urinary symptoms No any rash or wounds Physical Exam Vital Signs: Vital Signs: Last Vital Signs Temp 98.9 F 08/28/21 08:00 Pulse 69 08/28/21 08:00 Resp 18 08/28/21 08:00 BP 169/93 H 08/28/21 08:00 Pulse Ox 90 L 08/28/21 08:00 Body Mass Index 28.3 Const: Other: Constitutional : Alert, oriented, not in distress Neck : Normal inspection, Supple Cardiovascular : RRR, no lower extremity edema Respiratory : Chest wall moving bilaterally, not using accessory muscles, tachypnea, in mild respiratory distress, oxygen supplement Gastrointestinal: soft, lax, Normal bowel sounds, Non tender Skin : Warm, Dry Neurological : Alert & oriented x3, No focal deficit Objective Data Active Medications Acetaminophen (Acetaminophen 325 Mg Tablet) 650 mg PO Q6H PRN PRN Reason: Pain, Mild (Pain Scale 1-3) Last Admin: 08/27/21 10:36 Dose: 650 mg Documented by: MARY Albuterol Sulfate (Albuterol Sulfate 90 Mcg 8 Gm Inhaler) 4 puff INHALE RQ4H WHILE AWAKE PRN PRN Reason: Shortness of Breath/Wheezing Amlodipine Besylate (Amlodipine Besylate 10 Mg Tablet) 10 mg PO DAILY [facility]; Protocol Last Admin: 08/28/21 09:57 Dose: 10 mg Documented by: TESSA Dexamethasone Sodium Phosphate (Dexamethasone Sod Phosphate 4 Mg/Ml Vial) 6 mg IVPUSH DAILY [facility] Last Admin: 08/28/21 09:58 Dose: 6 mg Documented by: TESSA Enoxaparin Sodium (Enoxaparin Sodium 40 Mg/0.4 Ml Syringe) 40 mg SUBCUT Q24H [facility] Last Admin: 08/27/21 14:33 Dose: 40 mg Documented by: SAMANTHA Hydralazine HCl (Hydralazine Hcl 25 Mg Tablet) 25 mg PO TID [facility]; Protocol Last Admin: 08/28/21 09:57 Dose: 25 mg Documented by: TESSA Remdesivir 200 mg/ Sodium (Chloride) 210 mls @ 105 mls/hr IV ONCE ONE Stop: 08/28/21 12:59 Remdesivir 100 mg/ Sodium (Chloride) 230 mls @ 115 mls/hr IV Q24H [facility] Stop: 09/01/21 12:59 Labetalol HCl (Labetalol Hcl 100 Mg Tablet) 100 mg PO DAILY [facility]; Protocol Last Admin: 08/28/21 09:57 Dose: 100 mg Documented by: TESSA Ondansetron HCl (Ondansetron Hcl 4 Mg/2 Ml Vial) 4 mg IVPUSH Q8H PRN PRN Reason: Nausea and Vomiting Pharmacy Consult (Consult Rx Perform Med Rec) 1 each MISCELLANE ONCE PRN PRN Reason: Consult order Sodium Chloride (0.9 % Sodium Chloride Flush 3 Ml Syringe) 3 ml IVFLUSH QSHIFT [facility] Last Admin: 08/28/21 09:57 Dose: 3 ml Documented by: TESSA Labs CBC & Chem 7: 08/28/21 06:48 08/28/21 06:48 Labs: Laboratory Results - last 24 hr 08/28/21 08/28/21 06:48 06:48 MCV 81.0 MCH 26.4 L MCHC 32.6 RDW 14.6 Plt Count 323 MPV 9.3 L Absolute Nucleated RBC 0.000 Nucleated RBC % (auto) 0.0 Anion Gap 16 Estim Creat Clear Calc 86.0 Estimated GFR > 60 Random Glucose 330 H Calcium 9.0 Lactate Dehydrogenase 341 H C-Reactive Protein 7.14 H Microbiology Microbiology Results: Microbiology 08/26/21 11:12 Blood Culture - Preliminary Blood - Venous No growth after 24 hours. 08/26/21 10:46 Blood Culture - Preliminary Blood - Venous No growth after 24 hours. Assessment and Plan (1) Sepsis due to COVID-19: Status: Acute (2) Hypertensive urgency: Status: Acute (3) Acute respiratory failure with hypoxia: Status: Acute Assessment and Plan: A 46 old lady with no past medical history presents to the hospital complaining of difficulty breathing and weakness for 3 days prior to admission. Acute hypoxic respiratory failures Secondary to sepsis due to COVID-19 infection in Resp distress Start remdesivir continue DEXA day 3 Oxygen supplement, titrate as tolerated Id input appreciated Hypertensive urgency Blood pressure better controlled but remains elevated continue amlodipine daily continue hydralazine p.o. t.i.d. Continue Labetalol Continuous monitoring DVT PPX Lovenox Quality Stroke Does the patient have a stroke diagnosis?: No VTE Prior VTE?: No VTE Risk Level:: Medical - moderate - high VTE Device Contraindication: Treatment Not Indicated VTE Drug Contraindication: N/A - Med Ordered
[2021-08-28] MEDS: Remdesivir 200 MG in 0.9 % Sodium Chloride 210 ML 105 MG IV (11:58)
[2021-08-28] MEDS: Enoxaparin Sodium 40 MG/0.4 ML SYRINGE SUBCUT (15:23)
[2021-08-29] VITALS (7 sets, daily range): BP systolic 121–152; BP diastolic 65–92; PULSE 74–92; RESP 20; TEMP 36.1–36.7; O2SAT 1–92
[2021-08-29] MEDS: amLODIPine Besylate 10 MG TABLET PO (08:57)
[2021-08-29] MEDS: 0.9 % Sodium Chloride Flush 3 ML SYRINGE IVFLUSH ×2 (08:57→17:10)
[2021-08-29] MEDS: dexAMETHasone sod phosphate 4 MG/ML VIAL 6 MG IVPUSH (08:57)
[2021-08-29] MEDS: Labetalol HCL 100 MG TABLET PO (08:57)
--- NOTE | 2021-08-29 10:32 | HO.PM.IMPN ---
Subjective Subjective Date of Service: 08/29/21 Interval History: The patient was seen and evaluated this morning Laying in bed, improved respiratory distress, mildly tachypneic but looks comfortable On 4 L of oxygen BP better controlled but remains elevated Denies any fever, chills or shortness of breath No reported other overnight events. Systemic review: Reporting chills and generalized weakness No chest pain, palpitation Dyspnea on exertion and shortness of breath No abdominal pain, nausea or vomiting No urinary symptoms No any rash or wounds Physical Exam Vital Signs: Vital Signs: Last Vital Signs Temp 98.1 F 08/29/21 08:00 Pulse 89 08/29/21 08:57 Resp 20 08/29/21 08:00 BP 152/92 H 08/29/21 08:57 Pulse Ox 91 L 08/29/21 08:00 Body Mass Index 28.3 Const: Other: Constitutional : Alert, oriented, not in distress Neck : Normal inspection, Supple Cardiovascular : RRR, no lower extremity edema Respiratory : Chest wall moving bilaterally, not using accessory muscles, mild tachypnea, in mild respiratory distress, oxygen supplement Gastrointestinal: soft, lax, Normal bowel sounds, Non tender Skin : Warm, Dry Neurological : Alert & oriented x3, No focal deficit Objective Data Active Medications Acetaminophen (Acetaminophen 325 Mg Tablet) 650 mg PO Q6H PRN PRN Reason: Pain, Mild (Pain Scale 1-3) Last Admin: 08/27/21 10:36 Dose: 650 mg Documented by: MARY Albuterol Sulfate (Albuterol Sulfate 90 Mcg 8 Gm Inhaler) 4 puff INHALE RQ4H WHILE AWAKE PRN PRN Reason: Shortness of Breath/Wheezing Amlodipine Besylate (Amlodipine Besylate 10 Mg Tablet) 10 mg PO DAILY [facility]; Protocol Last Admin: 08/29/21 08:57 Dose: 10 mg Documented by: DORA Dexamethasone Sodium Phosphate (Dexamethasone Sod Phosphate 4 Mg/Ml Vial) 6 mg IVPUSH DAILY [facility] Last Admin: 08/29/21 08:57 Dose: 6 mg Documented by: DORA Enoxaparin Sodium (Enoxaparin Sodium 40 Mg/0.4 Ml Syringe) 40 mg SUBCUT Q24H [facility] Last Admin: 08/28/21 15:23 Dose: 40 mg Documented by: TESSA Remdesivir 100 mg/ Sodium (Chloride) 230 mls @ 115 mls/hr IV Q24H [facility] Stop: 09/01/21 12:59 Labetalol HCl (Labetalol Hcl 100 Mg Tablet) 100 mg PO DAILY [facility]; Protocol Last Admin: 08/29/21 08:57 Dose: 100 mg Documented by: DORA Ondansetron HCl (Ondansetron Hcl 4 Mg/2 Ml Vial) 4 mg IVPUSH Q8H PRN PRN Reason: Nausea and Vomiting Pharmacy Consult (Consult Rx Perform Med Rec) 1 each MISCELLANE ONCE PRN PRN Reason: Consult order Sodium Chloride (0.9 % Sodium Chloride Flush 3 Ml Syringe) 3 ml IVFLUSH QSHIFT [facility] Last Admin: 08/29/21 08:57 Dose: 3 ml Documented by: DORA Labs CBC & Chem 7: 08/28/21 06:48 08/28/21 06:48 Microbiology Microbiology Results: Microbiology 08/26/21 11:12 Blood Culture - Preliminary Blood - Venous No growth after 48 hours. 08/26/21 10:46 Blood Culture - Preliminary Blood - Venous No growth after 48 hours. Assessment and Plan (1) Sepsis due to COVID-19: Status: Acute (2) Hypertensive urgency: Status: Acute (3) Acute respiratory failure with hypoxia: Status: Acute Assessment and Plan: A 46 old lady with no past medical history presents to the hospital complaining of difficulty breathing and weakness for 3 days prior to admission. Acute hypoxic respiratory failures Secondary to sepsis due to COVID-19 infection in Resp distress Start remdesivir continue DEXA day 3 Oxygen supplement, titrate as tolerated Id input appreciated Hypertensive urgency Blood pressure better controlled but remains elevated continue amlodipine daily Will hold hydralazine 25 mg p.o. t.i.d. for today and monitor as blood pressures going down, to restart if remains elevated today Continue Labetalol Continuous monitoring DVT PPX Lovenox Quality Stroke Does the patient have a stroke diagnosis?: No VTE Prior VTE?: No VTE Risk Level:: Medical - moderate - high VTE Device Contraindication: Treatment Not Indicated VTE Drug Contraindication: N/A - Med Ordered
[2021-08-29] MEDS: Enoxaparin Sodium 40 MG/0.4 ML SYRINGE SUBCUT (10:35)
[2021-08-29] MEDS: Remdesivir 100 MG in 0.9 % Sodium Chloride 230 ML 115 MG IV (10:35)
--- NOTE | 2021-08-29 12:09 | MHC.CM.PN ---
Per ROUNDS discussion, Patient is not yet medically cleared for dc (4L O2, IV Decadron,IV Remdesivir). Home is the goal for dc and CM will follow for possible need to adjust the dc plan.
[2021-08-30 03:02] VITALS: BP 112/67; PULSE 80; RESP 20; TEMP 36.5; O2SAT 92
[2021-08-30 07:52] VITALS: BP 138/89; PULSE 88; RESP 18; TEMP 36.2; O2SAT 90
[2021-08-30] MEDS: dexAMETHasone sod phosphate 4 MG/ML VIAL 6 MG IVPUSH (09:40)
[2021-08-30] MEDS: Labetalol HCL 100 MG TABLET PO (09:41)
[2021-08-30] MEDS: amLODIPine Besylate 10 MG TABLET PO (09:42)
[2021-08-30] MEDS: 0.9 % Sodium Chloride Flush 3 ML SYRINGE IVFLUSH ×3 (09:42→21:14)
[2021-08-30] MEDS: Remdesivir 100 MG in 0.9 % Sodium Chloride 230 ML 115 MG IV (09:45)
--- NOTE | 2021-08-30 10:56 | HO.PM.IMPN ---
Subjective Subjective Date of Service: 08/30/21 Review of Systems Follow up COVID-19 Denies chest pain, nausea, vomiting, diarrhea Reports her breathing is better, continues with a dry cough, OOB bed she does feel little more shortness of breath All other systems are reviewed and are negative Physical Exam Vital Signs: Vital Signs: Last Vital Signs Temp 97.1 F 08/30/21 07:52 Pulse 88 08/30/21 07:52 Resp 18 08/30/21 07:52 BP 138/89 08/30/21 07:52 Pulse Ox 90 L 08/30/21 07:52 Body Mass Index 28.3 Appearing in no acute distress lungs normal expansion heart regular rate rhythm, clear S1, S2 positive bowel sounds, abdomen is soft, nontender neuro patient is alert x3, no focal deficits Objective Data Active Medications Acetaminophen (Acetaminophen 325 Mg Tablet) 650 mg PO Q6H PRN PRN Reason: Pain, Mild (Pain Scale 1-3) Last Admin: 08/27/21 10:36 Dose: 650 mg Documented by: MARY Albuterol Sulfate (Albuterol Sulfate 90 Mcg 8 Gm Inhaler) 4 puff INHALE RQ4H WHILE AWAKE PRN PRN Reason: Shortness of Breath/Wheezing Amlodipine Besylate (Amlodipine Besylate 10 Mg Tablet) 10 mg PO DAILY [facility]; Protocol Last Admin: 08/30/21 09:42 Dose: 10 mg Documented by: JAKE Dexamethasone Sodium Phosphate (Dexamethasone Sod Phosphate 4 Mg/Ml Vial) 6 mg IVPUSH DAILY [facility] Last Admin: 08/30/21 09:40 Dose: 6 mg Documented by: JAKE Enoxaparin Sodium (Enoxaparin Sodium 40 Mg/0.4 Ml Syringe) 40 mg SUBCUT Q24H [facility] Last Admin: 08/29/21 10:35 Dose: 40 mg Documented by: DORA Remdesivir 100 mg/ Sodium (Chloride) 230 mls @ 115 mls/hr IV Q24H [facility] Stop: 09/01/21 12:59 Last Admin: 08/30/21 09:45 Dose: 115 mls/hr Documented by: JAKE Labetalol HCl (Labetalol Hcl 100 Mg Tablet) 100 mg PO DAILY [facility]; Protocol Last Admin: 08/30/21 09:41 Dose: 100 mg Documented by: JAKE Ondansetron HCl (Ondansetron Hcl 4 Mg/2 Ml Vial) 4 mg IVPUSH Q8H PRN PRN Reason: Nausea and Vomiting Pharmacy Consult (Consult Rx Perform Med Rec) 1 each MISCELLANE ONCE PRN PRN Reason: Consult order Sodium Chloride (0.9 % Sodium Chloride Flush 3 Ml Syringe) 3 ml IVFLUSH QSHIFT [facility] Last Admin: 08/30/21 09:42 Dose: 3 ml Documented by: JAKE Labs CBC & Chem 7: 08/28/21 06:48 08/28/21 06:48 Assessment and Plan (1) Sepsis due to COVID-19: Status: Acute (2) Acute respiratory failure with hypoxia: Status: Acute (3) Pneumonia due to COVID-19 virus: Status: Acute (4) Hypertension: Status: Acute Assessment and Plan: 46 old lady with no past medical history presents to the hospital complaining of difficulty breathing and weakness for 3 days prior to admission. Acute hypoxic respiratory failures Secondary to sepsis due to COVID-19 infection Start remdesivir Dexamethsone Oxygen supplement, titrate as tolerated 4 liters with sats of 90%, cont O2 monitoring, increased o2 to 6 liters Id input appreciated Hypertensive urgency. resolved Blood pressure better controlled but remains elevated continue amlodipine daily and labetolol Continuous monitoring DVT PPX Lovenox Attending Dr. Correa Quality Stroke Does the patient have a stroke diagnosis?: No VTE Prior VTE?: No VTE Risk Level:: Medical - moderate - high VTE Device Contraindication: Treatment Not Indicated VTE Drug Contraindication: N/A - Med Ordered
[2021-08-30 11:30] VITALS: BP 150/88; PULSE 84; RESP 18; TEMP 36.4; O2SAT 92
[2021-08-30] MEDS: Enoxaparin Sodium 40 MG/0.4 ML SYRINGE SUBCUT (14:10)
[2021-08-30 15:37] VITALS: BP 155/88; PULSE 87; RESP 18; TEMP 37.1; O2SAT 92
--- NOTE | 2021-08-30 17:49 | PC.NURSE ---
Addendum entered by Lilly Zavala RN 08/30/21 17:52: Sat 92% Original Note: 02 6L via [facility] cath. Able to amb to bathroom with portable 02
[2021-08-30 19:13] VITALS: BP 169/86; PULSE 78; RESP 20; TEMP 36.7; O2SAT 93
[2021-08-30 23:22] VITALS: BP 139/86; PULSE 83; RESP 20; TEMP 36.3; O2SAT 93
[2021-08-31] VITALS (8 sets, daily range): BP systolic 146–155; BP diastolic 81–92; PULSE 68–91; RESP 16–20; TEMP 36.1–36.6; O2SAT 91–94
[2021-08-31 07:32] LABS: Lactate Dehydrogenase 246 U/L (122-220)
[2021-08-31 07:54] LABS: Anion Gap 19 (12-20); Blood Urea Nitrogen 17 mg/dL (9-16); Calcium 9.1 mg/dL (8.4-10.2); Carbon Dioxide 20 mmol/L (22-29); Chloride 103 mmol/L (96-108); Creatinine Clr Calc Pharmacy 89.7; Estimated Glomerular Filt Rate > 60; Ferritin 374 ng/mL (10-250); Glucose Random 362 mg/dL (60-115); Potassium 4.8 mmol/L (3.3-5.1); Sodium 137 mmol/L (135-145)
[2021-08-31] MEDS: dexAMETHasone sod phosphate 4 MG/ML VIAL 6 MG IVPUSH (09:01)
[2021-08-31] MEDS: 0.9 % Sodium Chloride Flush 3 ML SYRINGE IVFLUSH ×3 (09:01→20:51)
[2021-08-31] MEDS: amLODIPine Besylate 10 MG TABLET PO (09:01)
[2021-08-31] MEDS: Labetalol HCL 100 MG TABLET PO (09:01)
--- NOTE | 2021-08-31 10:50 | HO.PM.IMPN ---
Subjective Subjective Date of Service: 08/31/21 Interval History: Being followed for COVID-19 infection and hypoxia, patient feeling better less shortness of breath complaining of intermittent chest tightness denies nausea vomiting, no fevers, noted to have increased oxygen requirement Review of Systems General no headache, no dizziness, no fever chills. CVS no chest pain, no palpitation. Respiratory cough ,sob. Gastrointestinal no nausea, no vomiting, no abdominal pain Review of Systems: Yes all other systems are reviewed and are negative Physical Exam Vital Signs: Vital Signs: Last Vital Signs Temp 97.9 F 08/31/21 08:00 Pulse 89 08/31/21 09:01 Resp 18 08/31/21 08:00 BP 150/89 H 08/31/21 09:01 Pulse Ox 91 L 08/31/21 08:00 Body Mass Index 28.3 General awake ,alert, no acute distress. Neck no JVD. CVS regular rate rhythm, Respiratory lungs coarse, no respiratory distress, no wheeze. Gastrointestinal abdomen soft, nontender, bowel sounds audible, no no guarding , no rigidity. Extremities no edema. Neuro nonfocal Skin no rash Psych appropriate affect Objective Data Active Medications Acetaminophen (Acetaminophen 325 Mg Tablet) 650 mg PO Q6H PRN PRN Reason: Pain, Mild (Pain Scale 1-3) Last Admin: 08/27/21 10:36 Dose: 650 mg Documented by: MARY Albuterol Sulfate (Albuterol Sulfate 90 Mcg 8 Gm Inhaler) 4 puff INHALE RQ4H WHILE AWAKE PRN PRN Reason: Shortness of Breath/Wheezing Amlodipine Besylate (Amlodipine Besylate 10 Mg Tablet) 10 mg PO DAILY [facility]; Protocol Last Admin: 08/31/21 09:01 Dose: 10 mg Documented by: TIBURCIO Dexamethasone Sodium Phosphate (Dexamethasone Sod Phosphate 4 Mg/Ml Vial) 6 mg IVPUSH DAILY [facility] Last Admin: 08/31/21 09:01 Dose: 6 mg Documented by: TIBURCIO Enoxaparin Sodium (Enoxaparin Sodium 40 Mg/0.4 Ml Syringe) 40 mg SUBCUT Q24H [facility] Last Admin: 08/30/21 14:10 Dose: 40 mg Documented by: JAKE Remdesivir 100 mg/ Sodium (Chloride) 230 mls @ 115 mls/hr IV Q24H [facility] Stop: 09/01/21 12:59 Last Infusion: 08/30/21 12:27 Dose: 0 mls/hr Documented by: JAKE Labetalol HCl (Labetalol Hcl 100 Mg Tablet) 100 mg PO DAILY [facility]; Protocol Last Admin: 08/31/21 09:01 Dose: 100 mg Documented by: TIBURCIO Ondansetron HCl (Ondansetron Hcl 4 Mg/2 Ml Vial) 4 mg IVPUSH Q8H PRN PRN Reason: Nausea and Vomiting Pharmacy Consult (Consult Rx Perform Med Rec) 1 each MISCELLANE ONCE PRN PRN Reason: Consult order Sodium Chloride (0.9 % Sodium Chloride Flush 3 Ml Syringe) 3 ml IVFLUSH QSHIFT [facility] Last Admin: 08/31/21 09:01 Dose: 3 ml Documented by: TIBURCIO Labs CBC & Chem 7: 08/28/21 06:48 08/31/21 06:37 Labs: Laboratory Results - last 24 hr 08/31/21 08/31/21 06:37 06:37 Anion Gap 19 Estim Creat Clear Calc 89.7 Estimated GFR > 60 Random Glucose 362 H* Calcium 9.1 Ferritin 374 H Lactate Dehydrogenase 246 H Assessment and Plan (1) Acute respiratory failure with hypoxia: Status: Acute (2) Pneumonia due to COVID-19 virus: Status: Acute (3) Hypertension: Status: Acute Assessment and Plan: 46 old lady with no past medical history presents to the hospital complaining of difficulty breathing and weakness for 3 days prior to admission. Acute hypoxic respiratory failure Secondary to sepsis due to COVID-19 infection On IV dexamethasone and remdesivir Will add vitamin-C, Pepcid , cough medication and zinc. Requiring 7 L of oxygen, oxygen requirement increased in last couple days, clinically stable finger oximetry 91% Continue supportive care and gradually wean oxygen Hypertensive urgency. resolved Blood pressure better controlled , not on antihypertensives at home continue amlodipine 10 mg daily and labetolol 100 mg daily, will change to metoprolol 50 mg b.i.d. Continue bp monitoring DVT PPX Lovenox Quality Stroke Does the patient have a stroke diagnosis?: No VTE Prior VTE?: No VTE Risk Level:: Medical - moderate - high VTE Device Contraindication: Treatment Not Indicated VTE Drug Contraindication: N/A - Med Ordered
[2021-08-31] MEDS: Remdesivir 100 MG in 0.9 % Sodium Chloride 230 ML 115 MG IV (11:16)
[2021-08-31] MEDS: Enoxaparin Sodium 40 MG/0.4 ML SYRINGE SUBCUT (15:35)
[2021-08-31] MEDS: Famotidine 20 MG TABLET PO (20:50)
[2021-08-31] MEDS: Metoprolol Tartrate 50 MG TABLET PO (20:50)
[2021-09-01] VITALS (9 sets, daily range): BP systolic 120–167; BP diastolic 66–102; PULSE 67–83; RESP 17–18; TEMP 36.2–36.9; O2SAT 93–98
[2021-09-01] MEDS: dexAMETHasone sod phosphate 4 MG/ML VIAL 6 MG IVPUSH (10:05)
[2021-09-01] MEDS: 0.9 % Sodium Chloride Flush 3 ML SYRINGE IVFLUSH ×3 (10:06→21:05)
[2021-09-01] MEDS: Metoprolol Tartrate 50 MG TABLET PO ×2 (10:06→21:05)
[2021-09-01] MEDS: Zinc Sulfate 220 MG CAPSULE PO (10:06)
[2021-09-01] MEDS: Ascorbic Acid 500 MG TABLET PO (10:06)
[2021-09-01] MEDS: amLODIPine Besylate 10 MG TABLET PO (10:06)
[2021-09-01] MEDS: Famotidine 20 MG TABLET PO ×2 (10:06→21:05)
[2021-09-01] MEDS: Remdesivir 100 MG in 0.9 % Sodium Chloride 230 ML 115 MG IV (12:19)
[2021-09-01] MEDS: Enoxaparin Sodium 40 MG/0.4 ML SYRINGE SUBCUT (12:19)
--- NOTE | 2021-09-01 15:26 | HO.PM.IMPN ---
Subjective Subjective Date of Service: 09/01/21 Interval History: Being followed for acute hypoxic respiratory failure, offers no acute complaints denies chest pain no shortness of breath noted to have drop in oxygenation with activity. Review of Systems General no headache, no dizziness, no fever chills.? CVS no chest pain, no palpitation.? Respiratory cough ,sob.? Gastrointestinal no nausea, no vomiting, no abdominal pain Review of Systems: Yes all other systems are reviewed and are negative Physical Exam Vital Signs: Vital Signs: Last Vital Signs Temp 97.8 F 09/01/21 15:15 Pulse 75 09/01/21 15:15 Resp 18 09/01/21 15:15 BP 133/70 09/01/21 15:15 Pulse Ox 93 09/01/21 15:15 Body Mass Index 28.3 General awake ,alert, no acute distress.? Neck no JVD. CVS? regular rate rhythm, Respiratory lungs coarse breath sounds, no respiratory distress, no wheeze. Gastrointestinal abdomen soft, nontender, bowel sounds audible, no guarding , no rigidity. Extremities no edema. Neuro nonfocal Skin no rash Psych appropriate affect Objective Data Active Medications Acetaminophen (Acetaminophen 325 Mg Tablet) 650 mg PO Q6H PRN PRN Reason: Pain, Mild (Pain Scale 1-3) Last Admin: 08/27/21 10:36 Dose: 650 mg Documented by: MARY Albuterol Sulfate (Albuterol Sulfate 90 Mcg 8 Gm Inhaler) 4 puff INHALE RQ4H WHILE AWAKE PRN PRN Reason: Shortness of Breath/Wheezing Amlodipine Besylate (Amlodipine Besylate 10 Mg Tablet) 10 mg PO DAILY [facility]; Protocol Last Admin: 09/01/21 10:06 Dose: 10 mg Documented by: ALEXANDRIA Ascorbic Acid (Ascorbic Acid 500 Mg Tablet) 500 mg PO DAILY [facility] Last Admin: 09/01/21 10:06 Dose: 500 mg Documented by: ALEXANDRIA Dexamethasone Sodium Phosphate (Dexamethasone Sod Phosphate 4 Mg/Ml Vial) 6 mg IVPUSH DAILY [facility] Last Admin: 09/01/21 10:05 Dose: 6 mg Documented by: ALEXANDRIA Enoxaparin Sodium (Enoxaparin Sodium 40 Mg/0.4 Ml Syringe) 40 mg SUBCUT Q24H [facility] Last Admin: 09/01/21 12:19 Dose: 40 mg Documented by: ALEXANDRIA Famotidine (Famotidine 20 Mg Tablet) 20 mg PO BID [facility] Last Admin: 09/01/21 10:06 Dose: 20 mg Documented by: ALEXANDRIA Metoprolol Tartrate (Metoprolol Tartrate 50 Mg Tablet) 50 mg PO BID [facility]; Protocol Last Admin: 09/01/21 10:06 Dose: 50 mg Documented by: ALEXANDRIA Ondansetron HCl (Ondansetron Hcl 4 Mg/2 Ml Vial) 4 mg IVPUSH Q8H PRN PRN Reason: Nausea and Vomiting Pharmacy Consult (Consult Rx Perform Med Rec) 1 each MISCELLANE ONCE PRN PRN Reason: Consult order Sodium Chloride (0.9 % Sodium Chloride Flush 3 Ml Syringe) 3 ml IVFLUSH QSHIFT [facility] Last Admin: 09/01/21 12:19 Dose: 3 ml Documented by: ALEXANDRIA Zinc Sulfate (Zinc Sulfate 220 Mg Capsule) 220 mg PO DAILY [facility] Last Admin: 09/01/21 10:06 Dose: 220 mg Documented by: ALEXANDRIA Labs CBC & Chem 7: 08/28/21 06:48 08/31/21 06:37 Microbiology Microbiology Results: Microbiology 08/26/21 11:12 Blood Culture - Final Blood - Venous No growth after 5 days. 08/26/21 10:46 Blood Culture - Final Blood - Venous No growth after 5 days. Assessment and Plan (1) Sepsis due to COVID-19: Status: Acute (2) Acute respiratory failure with hypoxia: Status: Acute (3) Hypertension: Status: Acute Assessment and Plan: 46 old lady with no past medical history presents to the hospital complaining of difficulty breathing and weakness for 3 days prior to admission. Acute hypoxic respiratory failure Secondary to sepsis due to COVID-19 infection On IV dexamethasone day 6 and remdesivir Continue vitamin-C, Pepcid , cough medication and zinc. Requiring 8 L of oxygen, oxygen requirement increased in last couple days, clinically stable finger oximetry 93% Continue supportive care and gradually wean oxygen Hypertensive urgency. resolved Blood pressure better controlled with addition of metoprolol 50 b.i.d. , not on antihypertensives at home continue amlodipine 10 mg daily and metoprolol 50 mg b.i.d. Continue bp monitoring DVT PPX Lovenox Quality Stroke Does the patient have a stroke diagnosis?: No VTE Prior VTE?: No VTE Risk Level:: Medical - moderate - high VTE Device Contraindication: Treatment Not Indicated VTE Drug Contraindication: N/A - Med Ordered
[2021-09-02 03:48] VITALS: BP 150/69; PULSE 76; RESP 18; O2SAT 97
[2021-09-02 07:11] VITALS: BP 152/90; PULSE 73; RESP 18; TEMP 36.4; O2SAT 96
[2021-09-02] MEDS: dexAMETHasone sod phosphate 4 MG/ML VIAL 6 MG IVPUSH (10:13)
[2021-09-02] MEDS: amLODIPine Besylate 10 MG TABLET PO (10:14)
[2021-09-02] MEDS: Metoprolol Tartrate 50 MG TABLET PO ×2 (10:14→19:56)
[2021-09-02] MEDS: 0.9 % Sodium Chloride Flush 3 ML SYRINGE IVFLUSH ×2 (10:14→16:23)
[2021-09-02] MEDS: Zinc Sulfate 220 MG CAPSULE PO (10:14)
[2021-09-02] MEDS: Ascorbic Acid 500 MG TABLET PO (10:14)
[2021-09-02 11:18] VITALS: PULSE 87; O2SAT 94
--- NOTE | 2021-09-02 11:19 | PC.RT ---
09/02/2021 pt. evaluated for home oxygen needs today. Although oxygenation levels were within normal limits, the patient's work of breathing was significant. Encouraged patient to take mobility slowly and instructed pt. on pursed lip breathing technique to help with tachypnea and dyspnea.
[2021-09-02 11:31] VITALS: BP 154/89; PULSE 68; RESP 17; TEMP 36.1; O2SAT 97
--- NOTE | 2021-09-02 12:17 | HO.PM.IMPN ---
Subjective Subjective Date of Service: 09/02/21 Interval History: Patient feeling better less short of breath and decreased oxygen requirement now on 5 L of oxygen finger oximetry 96% denies fever chills no other acute issues overnight Review of Systems General no headache, no dizziness, no fever chills.? CVS no chest pain, no palpitation.? Respiratory cough ,sob.? Gastrointestinal no nausea, no vomiting, no abdominal pain Review of Systems: Yes all other systems are reviewed and are negative Physical Exam Vital Signs: Vital Signs: Last Vital Signs Temp 97.0 F 09/02/21 11:31 Pulse 68 09/02/21 11:31 Resp 17 09/02/21 11:31 BP 154/89 H 09/02/21 11:31 Pulse Ox 97 09/02/21 11:31 Body Mass Index 28.3 General awake ,alert, no acute distress.? Neck no JVD. CVS? regular rate rhythm, Respiratory lungs coarse breath sounds, no respiratory distress, no wheeze. Gastrointestinal abdomen soft, nontender, bowel sounds audible, no guarding , no rigidity. Extremities no edema. Neuro nonfocal Skin no rash Psych appropriate affect Objective Data Active Medications Acetaminophen (Acetaminophen 325 Mg Tablet) 650 mg PO Q6H PRN PRN Reason: Pain, Mild (Pain Scale 1-3) Last Admin: 08/27/21 10:36 Dose: 650 mg Documented by: MARY Albuterol Sulfate (Albuterol Sulfate 90 Mcg 8 Gm Inhaler) 4 puff INHALE RQ4H WHILE AWAKE PRN PRN Reason: Shortness of Breath/Wheezing Amlodipine Besylate (Amlodipine Besylate 10 Mg Tablet) 10 mg PO DAILY [facility]; Protocol Last Admin: 09/02/21 10:14 Dose: 10 mg Documented by: AKHIL Ascorbic Acid (Ascorbic Acid 500 Mg Tablet) 500 mg PO DAILY [facility] Last Admin: 09/02/21 10:14 Dose: 500 mg Documented by: AKHIL Dexamethasone Sodium Phosphate (Dexamethasone Sod Phosphate 4 Mg/Ml Vial) 6 mg IVPUSH DAILY [facility] Last Admin: 09/02/21 10:13 Dose: 6 mg Documented by: AKHIL Enoxaparin Sodium (Enoxaparin Sodium 40 Mg/0.4 Ml Syringe) 40 mg SUBCUT Q24H [facility] Last Admin: 09/01/21 12:19 Dose: 40 mg Documented by: ALEXANDRIA Famotidine (Famotidine 20 Mg Tablet) 20 mg PO BID [facility] Last Admin: 09/02/21 10:15 Dose: Not Given Documented by: AKHIL Non-Admin Reason: Med Not Available Metoprolol Tartrate (Metoprolol Tartrate 50 Mg Tablet) 50 mg PO BID [facility]; Protocol Last Admin: 09/02/21 10:14 Dose: 50 mg Documented by: AKHIL Ondansetron HCl (Ondansetron Hcl 4 Mg/2 Ml Vial) 4 mg IVPUSH Q8H PRN PRN Reason: Nausea and Vomiting Pharmacy Consult (Consult Rx Perform Med Rec) 1 each MISCELLANE ONCE PRN PRN Reason: Consult order Sodium Chloride (0.9 % Sodium Chloride Flush 3 Ml Syringe) 3 ml IVFLUSH QSHIFT [facility] Last Admin: 09/02/21 10:14 Dose: 3 ml Documented by: AKHIL Zinc Sulfate (Zinc Sulfate 220 Mg Capsule) 220 mg PO DAILY [facility] Last Admin: 09/02/21 10:14 Dose: 220 mg Documented by: AKHIL Labs CBC & Chem 7: 08/28/21 06:48 08/31/21 06:37 Assessment and Plan (1) Acute respiratory failure with hypoxia: Status: Acute (2) Pneumonia due to COVID-19 virus: Status: Acute (3) Hypertension: Status: Acute Assessment and Plan: 46 old lady with no past medical history presents to the hospital complaining of difficulty breathing and weakness for 3 days prior to admission. Acute hypoxic respiratory failure Secondary to sepsis due to COVID-19 infection On IV dexamethasone day 7 , finished course of remdesivir Continue vitamin-C, Pepcid , cough medication and zinc. Currently on 5 L of oxygen Home O2 eval obtained patient noted to have significant shortness of breath with ambulation, oxygenation around 90 91% with ambulation but due to significant shortness of breath will continue current treatment And reassess patient in next 24 hours Continue supportive care and gradually wean oxygen Hypertensive urgency. resolved Blood pressure better controlled with addition of metoprolol 50 b.i.d. , not on antihypertensives at home continue amlodipine 10 mg daily and metoprolol 50 mg b.i.d. Continue bp monitoring DVT PPX Lovenox Quality Stroke Does the patient have a stroke diagnosis?: No VTE Prior VTE?: No VTE Risk Level:: Medical - moderate - high VTE Device Contraindication: Treatment Not Indicated VTE Drug Contraindication: N/A - Med Ordered
[2021-09-02] MEDS: Enoxaparin Sodium 40 MG/0.4 ML SYRINGE SUBCUT (14:34)
[2021-09-02 15:22] VITALS: BP 147/72; PULSE 75; RESP 18; TEMP 36.4; O2SAT 94
[2021-09-02 19:35] VITALS: BP 147/86; PULSE 87; RESP 18; TEMP 37.1; O2SAT 97
[2021-09-02] MEDS: Famotidine 20 MG TABLET PO (19:56)
[2021-09-03] VITALS (10 sets, daily range): BP systolic 126–153; BP diastolic 76–97; PULSE 70–94; RESP 15–24; TEMP 36.4–37.2; O2SAT 93–98
[2021-09-03] MEDS: 0.9 % Sodium Chloride Flush 3 ML SYRINGE IVFLUSH ×4 (00:34→22:20)
[2021-09-03] MEDS: Ascorbic Acid 500 MG TABLET PO (08:19)
[2021-09-03] MEDS: dexAMETHasone sod phosphate 4 MG/ML VIAL 6 MG IVPUSH (08:19)
[2021-09-03] MEDS: amLODIPine Besylate 10 MG TABLET PO (08:19)
[2021-09-03] MEDS: Zinc Sulfate 220 MG CAPSULE PO (08:19)
[2021-09-03] MEDS: Famotidine 20 MG TABLET PO ×2 (08:19→22:19)
[2021-09-03] MEDS: Metoprolol Tartrate 50 MG TABLET PO ×2 (08:20→22:19)
--- NOTE | 2021-09-03 10:21 | P.PNIM_ITS ---
Subjective Subjective Date of Service: 09/03/21 Interval History: Complaining of shortness of breath with activity, otherwise feeling better is still requiring oxygen 5 L, denies fever chills. Review of Systems General no headache, no dizziness, no fever chills.? CVS no chest pain, no palpitation.? Respiratory cough ,sob worse with activity Gastrointestinal no nausea, no vomiting, no abdominal pain Review of Systems: Yes all other systems are reviewed and are negative Physical Exam Vital Signs: Vital Signs: Last Vital Signs Temp 97.5 F 09/03/21 07:47 Pulse 94 09/03/21 08:20 Resp 24 H 09/03/21 07:47 BP 136/89 09/03/21 08:20 Pulse Ox 93 09/03/21 07:47 Body Mass Index 28.3 General awake ,al ert, no acute dist ress.? Neck no JVD . CVS? regular rat e rhythm, Respirat ory lungs coarse b reath sounds, no r espiratory distres s, no wheeze, no r ales Gastrointesti nal abdomen soft, nontender, bowel s ounds audible, no guarding , no rigi dity. Extremities no edema. Neuro no nfocal Skin no hernandez h Psych appropriat e affect Objective Data Active Medications Acetaminophen (Acetaminophen 325 Mg Tablet) 650 mg PO Q6H PRN PRN Reason: Pain, Mild (Pain Scale 1-3) Last Admin: 08/27/21 10:36 Dose: 650 mg Documented by: MARY Albuterol Sulfate (Albuterol Sulfate 90 Mcg 8 Gm Inhaler) 4 puff INHALE RQ4H WH ILE AWAKE PRN PRN Reason: Shortness of Breath/Wheezing Amlodipine Besylate (Amlodipine Besylate 10 Mg Tablet) 10 mg PO DAILY [facility]; Protocol Last Admin: 09/03/21 08:19 Dose: 10 mg Documented by: TOM Ascorbic Acid (Ascorbic Acid 500 Mg Tablet) 500 mg PO DAILY [facility] Last Admin: 09/03/21 08:19 Dose: 500 mg Documented by: TOM Dexamethasone Sodium Phosphate (Dexamethasone Sod Phosphate 4 Mg/Ml Vial) 6 mg IVPUSH DAILY [facility] Last Admin: 09/03/21 08:19 Dose: 6 mg Documented by: TOM Enoxaparin Sodium (Enoxaparin Sodium 40 Mg/0.4 Ml Syringe) 40 mg SUBCUT Q24H [facility] Last Admin: 09/02/21 14:34 Dose: 40 mg Documented by: AKHIL Famotidine (Famotidine 20 Mg Tablet) 20 mg PO BID [facility] Last Admin: 09/03/21 08:19 Dose: 20 mg Documented by: TOM Metoprolol Tartrate (Metoprolol Tartrate 50 Mg Tablet) 50 mg PO BID [facility]; Protocol Last Admin: 09/03/21 08:20 Dose: 50 mg Documented by: TOM Ondansetron HCl (Ondansetron Hcl 4 Mg/2 Ml Vial) 4 mg IVPUSH Q8H PRN PRN Reason: Nausea and Vomiting Pharmacy Consult (Consult Rx Perform Med Rec) 1 each MISCELLANE ONCE PRN PRN Reason: Consult order Sodium Chloride (0.9 % Sodium Chloride Flush 3 Ml Syringe) 3 ml IVFLUSH QSHIFT [facility] Last Admin: 09/03/21 08:18 Dose: 3 ml Documented by: TOM Zinc Sulfate (Zinc Sulfate 220 Mg Capsule) 220 mg PO DAILY [facility] Last Admin: 09/03/21 08:19 Dose: 220 mg Documented by: TOM Labs CBC & Chem 7: 08/28/21 06:48 08/31/21 06:37 Assessment and Plan (1) Acute respiratory failure with hypoxia: Status: Acute (2) Pneumonia due to COVID-19 virus: Status: Acute (3) Hypertension: Status: Acute Assessment and Plan: 46 old lady with no past medical history presents to the hospital complaining of difficulty breathing and weakness for 3 days prior to admission. Acute hypoxic respiratory failure Secondary to sepsis due to COVID-19 infection On IV dexamethasone day 05/13 , finished course of remdesivir Continue vitamin-C, Pepcid , cough medication and zinc. Currently on 5 L of oxygen Home O2 eval obtained patient noted to have significant shortness of breath with ambulation, with increased work of breathing, no change in examination since y Continue supportive care , gradually wean oxygen, recommended frequent position change, out of bed to chair, will re-attempt home O2 eval Hypertensive urgency. resolved Blood pressure better controlled in last 24 hours,continue amlodipine 10 mg daily and metoprolol 50 mg b.i.d. patient not on home medication Continue bp monitoring DVT PPX Lovenox Quality Stroke Does the patient have a stroke diagnosis?: No VTE Prior VTE?: No VTE Risk Level:: Medical - moderate - high VTE Device Contraindication: Treatment Not Indicated VTE Drug Contraindication: N/A - Med Ordered
--- NOTE | 2021-09-03 14:02 | MHC.CM.PN ---
Addendum entered by Yakelin Amaya 09/04/21 14:24: A repeat home O2 eval was ordered and performed today. The patient did very well. She does not require Home Oxygen. She does not qualify for home o2. Discharge today, home no services. Her family is providing transportation home. Original Note: Female 46 DX Covid + No discharge today. A Home O2 eval was ordered and performed yesterday. The patient did poorly with significant increase in WOB, per EMR. The DP is home no services and her spouse will provide transportation.
[2021-09-03] MEDS: Enoxaparin Sodium 40 MG/0.4 ML SYRINGE SUBCUT (15:36)
[2021-09-04 03:44] VITALS: BP 145/74; PULSE 71; RESP 18; TEMP 36.8; O2SAT 95
[2021-09-04 07:45] VITALS: BP 151/84; PULSE 71; RESP 19; TEMP 36.9; O2SAT 93
[2021-09-04] MEDS: 0.9 % Sodium Chloride Flush 3 ML SYRINGE IVFLUSH (10:04)
[2021-09-04] MEDS: amLODIPine Besylate 10 MG TABLET PO (10:04)
[2021-09-04] MEDS: Famotidine 20 MG TABLET PO (10:05)
[2021-09-04] MEDS: Ascorbic Acid 500 MG TABLET PO (10:05)
[2021-09-04] MEDS: Metoprolol Tartrate 50 MG TABLET PO (10:05)
[2021-09-04] MEDS: Zinc Sulfate 220 MG CAPSULE PO (10:05)
[2021-09-04] MEDS: dexAMETHasone sod phosphate 4 MG/ML VIAL 6 MG IVPUSH (10:55)
[2021-09-04 11:21] VITALS: BP 121/74; PULSE 70; RESP 20; TEMP 36.4; O2SAT 97
[2021-09-04 13:28] VITALS: PULSE 83; O2SAT 95
--- NOTE | 2021-09-04 13:34 | PM.DS ---
DS: Providers Provider Date of Service: 09/04/21 Date of admission: 08/26/21 13:51 Primary care physician: Judy Pierre MD Consults: 08/26/21 14:52 Consult to Infectious Diseases Routine Consulting Provider: Serenity Kimball Reason for consultation: COVID-19 infection, symptoms of 3 days DS: Diagnosis Discharge Diagnosis (1) Acute respiratory failure with hypoxia: Status: Acute (2) Pneumonia due to COVID-19 virus: Status: Acute (3) Hypertension: Status: Acute DS: Summary Hospital Course Hospital Course: Chief Complaint: Shortness of breath A 46 old lady with no past medical history presents to the hospital complaining of difficulty breathing and weakness for 3 days prior to admission. The patient reported that she told the 1st dose of the vaccine on Wednesday as requirement for job.? She does not recall having contact with sick person recently.? Starting Wednesday after the showed you start having difficulty breathing and generalized pain that worsened over the course of the last 2 days to shortness of breath even at rest sometimes.? In the emergency her oxygen level was noted to be 89 at room air improved to 90s with 2 L of oxygen. Chest x-ray suggestive of viral pneumonia Admitted for further evaluation and treatment. 46 old lady with no past medical history presents to the hospital complaining of difficulty breathing and weakness 3 days after receiving Pfizer vaccine and diagnosed to have COVID-19 infection, patient was noted to be hypoxic for admitted to isolation unit , treated with IV dexamethasone, remdesivir, Pepcid vitamin-C and zinc, patient oxygen has gradually been weaned of her oxygenation remains stable today at rest and with ambulation therefore does not qualify for home O2 she has been recommended to drink plenty of fluid, rest, and do activity as tolerated, patient can receive her 2nd COVID shot once she completely recovers from infection Hypertensive urgency. She was noted to have significantly elevated blood pressure therefore treated with amlodipine and metoprolol blood pressure has improved therefore she is being discharged home on metoprolol XL 50 mg daily and amlodipine 5 mg daily recommended to follow BP closely. Time Spent with Patient Time attestation: Total time spent providing and/or coordinating discharge services: Discharge coordination time: Greater than 30 minutes Quality: Stroke Does the patient have a stroke diagnosis?: No Physical Exam Vital Signs: Vital Signs: Last Vital Signs Temp 97.5 F 09/04/21 11:21 Pulse 70 09/04/21 11:21 Resp 20 09/04/21 11:21 BP 121/74 09/04/21 11:21 Pulse Ox 97 09/04/21 11:21 BMI result Body Mass Index 28.3 General awake ,alert, no acute distress.? Neck no JVD. CVS? regular rate rhythm, Respiratory lungs coarse breath sounds, no respiratory distress, no wheeze, no rales Gastrointestinal abdomen soft,nontender, bowel sounds audible, noguarding , no rigidity. Extremitiesno edema. Neuro nonfocal Skin no rash Psych appropriate affect Discharge Plan Discharge Patient Disposition: Home, Self-Care Discharge Diagnosis: Acute hypoxic respiratory failure due to COVID infection Hypertensive urgency Referrals: Judy Pierre MD [Primary Care Provider] - 1 Week Discharge Medications: New amlodipine [Norvasc] 5 mg tablet 5 mg PO DAILY Qty: 30 RF: 0 metoprolol succinate 50 mg capsule,sprinkle,ER 24hr 50 mg PO DAILY Qty: 30 RF: 0 ascorbic acid (vitamin C) [Vitamin C] 500 mg Tablet 500 mg PO DAILY Qty: 30 RF: 0 Continued multivitamin Tablet 1 tab PO DAILY RF: 0 albuterol sulfate 90 mcg/actuation Hfa Aerosol Inhaler 2 puff INHALATION Q4H PRN (Reason: Wheezing) RF: 0 Discontinued naproxen sodium [Aleve] 220 mg Tablet 220 mg PO BID PRN (Reason: Pain) RF: 0 Discharge Orders: Discharge Order (Routine); Ordered 09/04/21 Ordered By: Breezy Worthington Diet: advance to usual diet Activity on Discharge: As tolerated Stand Alone Forms: Patient Portal Discharge page, Work/School Release Care Plan Goals: Hypertension take 2 new medications as ordered Hypoxic respiratory failure due to COVID infection resolved, continue to use mask , rest, activity as tolerated, eat healthy, you finished course of dexamethasone and remdesivir. Can receive 2nd dose of Pfizer vaccine when feels better in next 1 -2 weeks Health Concerns: Follow blood pressure closely and adjust BP medication as per primary care physician. Plan of Treatment: Outpatient follow-up with primary care physician in 1 week Assessment: As above
[2021-09-04] MEDS: Enoxaparin Sodium 40 MG/0.4 ML SYRINGE SUBCUT (15:04)
== END 2021-09-04 16:05 | disposition home or self-care (01) | DRG 720 ==
LOC: HO.ED 12:26 → HO.EDOVER 14:04 → HO.IMC 08-27 18:16
PROVIDERS: Nurse Practitioner Acute Care; Physician Assistant; Admitting Provider Student in an Organized Health Care Education/Training Program; Emergency Provider Emergency Medicine; PCP Internal Medicine; Visit Provider Hospitalist
DX: A41.89 Other specified sepsis (principal); J96.01 Acute respiratory failure with hypoxia; U07.1 COVID-19; J12.82 Pneumonia due to coronavirus disease 2019; I16.0 Hypertensive urgency; I10 Essential (primary) hypertension; Z87.891 Personal history of nicotine dependence; Z79.899 Other long term (current) drug therapy
CPT/HCPCS: 36415; 71045; 80048; 80076; 82728; 83605; 83615; 83735; 83880; 84484; 85007; 85027; 85379; 86140; 87040; 87635; 93005; 94640; 94664; 96361; 96365; 96367; 96375; 99285; 99291; J0456; J0696; J1100; J1650; J3490

== ENCOUNTER 2021-09-10 08:40 | Outpatient (REF) | payer BC, SELFPAY ==
[2021-09-10 11:35] LABS: Hematocrit 46.2 % (37.0-47.0); Hemoglobin 14.9 g/dl (12.0-16.0); Mean Corpuscular HGB Conc 32.3 g/dl (31.0-35.0); Mean Corpuscular Hemoglobin 26.6 pg (27.0-33.0); Mean Corpuscular Volume 82.5 fL (80.0-98.0); Mean Platelet Volume 10.6 fL (9.4-12.3); Platelet Count 442 X10*3/uL (160-400); Red Cell Distribution Width 14.6 % (11.0-16.0); White Blood Count 9.2 X10*3/uL (4.8-10.8)
[2021-09-10 11:42] LABS: Hemoglobin A1c % > 14.0 %
[2021-09-10 12:05] LABS: Alanine Aminotransferase 86 U/L (0-31); Albumin Level 3.9 g/dL (3.5-5.0); Alkaline Phosphatase 94 U/L (39-117); Anion Gap 17 (12-20); Aspartate Amino Transferase 36 U/L (5-31); Bilirubin Total 0.8 mg/dL (0.0-1.0); Blood Urea Nitrogen 8 mg/dL (9-16); Calcium 9.1 mg/dL (8.4-10.2); Carbon Dioxide 23 mmol/L (22-29); Chloride 102 mmol/L (96-108); Estimated Glomerular Filt Rate > 60; Glucose Fasting 336 mg/dL (60-99); Potassium 4.6 mmol/L (3.3-5.1); Sodium 137 mmol/L (135-145)
== END 2021-09-10 08:41 | disposition home or self-care (01) ==
LOC: HO.HMGCLDS 08:40
PROVIDERS: PCP Internal Medicine; Visit Provider Internal Medicine
DX: U07.1 COVID-19 (principal); I10 Essential (primary) hypertension; R73.9 Hyperglycemia, unspecified
CPT/HCPCS: 36415; 80053; 83036; 85027

== ENCOUNTER 2021-10-02 12:30 | Outpatient (REF) | payer BC, SELFPAY ==
[2021-10-02 15:01] LABS: Anion Gap 13 (12-20); Blood Urea Nitrogen 10 mg/dL (9-16); Calcium 10.1 mg/dL (8.4-10.2); Carbon Dioxide 27 mmol/L (22-29); Chloride 104 mmol/L (96-108); Estimated Glomerular Filt Rate > 60; Glucose Random 115 mg/dL (60-115); Potassium 4.7 mmol/L (3.3-5.1); Sodium 139 mmol/L (135-145)
[2021-10-08 17:07] LABS: Cortisol, Free 0.17 mcg/dL
[2021-10-09 15:46] LABS: Aldosterone/Renin Ratio 3.4 Ratio (0.9-28.9); Plasma Renin Activity 1.16 ng/mL/h (0.25-5.82)
== END 2021-10-02 12:31 | disposition home or self-care (01) ==
LOC: HO.HMGCLDS 12:30
PROVIDERS: PCP Internal Medicine; Visit Provider Internal Medicine
DX: E11.9 Type 2 diabetes mellitus without complications (principal); I10 Essential (primary) hypertension
CPT/HCPCS: 36415; 80048; 82088; 82530

== ENCOUNTER 2021-10-06 10:31 | Outpatient (REF) | payer BC, SELFPAY ==
[2021-10-11 09:47] LABS: Metanephrine, Free 24U 244 mcg/24 h (58-203); Normetanephrine, Free 24U 299 mcg/24 h (88-649); Total Metanephrine, Free 24U 543 mcg/24 h (182-739); Total Volume 24U 1050 mL
== END 2021-10-06 10:32 | disposition home or self-care (01) ==
LOC: HO.HMGCLNP 10:31
PROVIDERS: Visit Provider Internal Medicine
DX: E11.9 Type 2 diabetes mellitus without complications (principal); I10 Essential (primary) hypertension
CPT/HCPCS: 83835

== ENCOUNTER 2021-10-29 06:31 | Outpatient (REF) | payer BC, SELFPAY ==
[2021-10-29 11:45] LABS: Alanine Aminotransferase 27 U/L (0-31); Albumin Level 4.5 g/dL (3.5-5.0); Alkaline Phosphatase 62 U/L (39-117); Anion Gap 17 (12-20); Aspartate Amino Transferase 15 U/L (5-31); Bilirubin Total 0.5 mg/dL (0.0-1.0); Blood Urea Nitrogen 15 mg/dL (9-16); Calcium 10.1 mg/dL (8.4-10.2); Carbon Dioxide 26 mmol/L (22-29); Chloride 101 mmol/L (96-108); Cholesterol 295 mg/dL; Estimated Glomerular Filt Rate > 60; Glucose Fasting 121 mg/dL (60-99); HDL Cholesterol 37 mg/dL; LDL Cholesterol Calculated 220 mg/dl; Potassium 4.7 mmol/L (3.3-5.1); Sodium 139 mmol/L (135-145); Total Protein 7.4 g/dL (6.5-8.0); Triglycerides 193 mg/dL
[2021-10-29 11:51] LABS: Estimated Average Glucose 229 mg/dL; Hemoglobin A1c % 9.6 %
== END 2021-10-29 06:32 | disposition home or self-care (01) ==
LOC: HO.HMGCLDS 06:31
PROVIDERS: PCP Internal Medicine; Visit Provider Internal Medicine
DX: E11.9 Type 2 diabetes mellitus without complications (principal); I10 Essential (primary) hypertension
CPT/HCPCS: 36415; 80053; 80061; 83036

== ENCOUNTER 2021-11-10 10:57 | Outpatient (REF) | payer BC, SELFPAY ==
[2021-11-10 14:04] LABS: Alanine Aminotransferase 27 U/L (0-31); Albumin Level 4.5 g/dL (3.5-5.0); Alkaline Phosphatase 71 U/L (39-117); Anion Gap 14 (12-20); Aspartate Amino Transferase 15 U/L (5-31); Bilirubin Total 0.5 mg/dL (0.0-1.0); Blood Urea Nitrogen 13 mg/dL (9-16); Calcium 10.3 mg/dL (8.4-10.2); Carbon Dioxide 28 mmol/L (22-29); Chloride 103 mmol/L (96-108); Cholesterol 196 mg/dL; Estimated Glomerular Filt Rate > 60; Glucose Fasting 100 mg/dL (60-99); HDL Cholesterol 29 mg/dL; LDL Cholesterol Calculated 121 mg/dl; Potassium 4.7 mmol/L (3.3-5.1); Sodium 140 mmol/L (135-145); Total Protein 7.4 g/dL (6.5-8.0); Triglycerides 233 mg/dL
== END 2021-11-10 10:58 | disposition home or self-care (01) ==
LOC: HO.HMGCLDS 10:57
PROVIDERS: Visit Provider Internal Medicine
DX: I10 Essential (primary) hypertension (principal); E78.5 Hyperlipidemia, unspecified; E11.65 Type 2 diabetes mellitus with hyperglycemia
CPT/HCPCS: 36415; 80048; 80053; 80061

== ENCOUNTER 2021-12-25 08:15 | Outpatient (REF) | payer BC, SELFPAY ==
[2021-12-25 11:14] LABS: Hematocrit 44.2 % (37.0-47.0); Hemoglobin 13.7 g/dl (12.0-16.0); Mean Corpuscular Hemoglobin 27.1 pg (27.0-33.0); Mean Corpuscular Volume 87.4 fL (80.0-98.0); Mean Platelet Volume 9.3 fL (9.4-12.3); Platelet Count 433 X10*3/uL (160-400); Red Blood Count 5.06 X10*6/uL (4.20-5.50); Red Cell Distribution Width 14.7 % (11.0-16.0); White Blood Count 7.8 X10*3/uL (4.8-10.8)
[2021-12-25 11:26] LABS: Estimated Average Glucose 128 mg/dL; Hemoglobin A1c % 6.1 %
[2021-12-25 11:44] LABS: Alanine Aminotransferase 32 U/L (0-31); Albumin Level 4.8 g/dL (3.5-5.0); Alkaline Phosphatase 64 U/L (39-117); Anion Gap 17 (12-20); Aspartate Amino Transferase 20 U/L (5-31); Bilirubin Total 0.8 mg/dL (0.0-1.0); Blood Urea Nitrogen 14 mg/dL (9-16); Calcium 10.3 mg/dL (8.4-10.2); Carbon Dioxide 23 mmol/L (22-29); Chloride 105 mmol/L (96-108); Cholesterol 197 mg/dL; Estimated Glomerular Filt Rate > 60; Glucose Fasting 108 mg/dL (60-99); HDL Cholesterol 34 mg/dL; LDL Cholesterol Calculated 123 mg/dl; Potassium 4.8 mmol/L (3.3-5.1); Sodium 140 mmol/L (135-145); Total Protein 7.8 g/dL (6.5-8.0); Triglycerides 201 mg/dL
== END 2021-12-25 08:16 | disposition home or self-care (01) ==
LOC: HO.HMGCLDS 08:15
PROVIDERS: Visit Provider Internal Medicine
DX: E11.9 Type 2 diabetes mellitus without complications (principal); E78.5 Hyperlipidemia, unspecified; I10 Essential (primary) hypertension
CPT/HCPCS: 36415; 80053; 80061; 83036; 85027

== ENCOUNTER → 2022-01-07 07:08 | Outpatient (REF) | payer BC, SELFPAY ==
--- NOTE | 2022-01-07 07:11 | CA_ITS ---
Transthoracic Echocardiogram Patient (Last, First, Middle): Judy Borjas, Gender: Female Date of : 1975 Age: 46 Procedure Date: 01/07/2022 Procedure Type: Transthoracic Echocardiogram Location: OP Height: 157.48 cm Weight: 68.04 kg BSA: 1.69 m2 Heart Rate: bpm BP: 150 / 86 mmHg Freight Rate Analyst: MICHAEL Referring MD: Judy Pierre MD State Game Protector: Colin Alejandra MD Symptoms: E78.5 - Hyperlipidemia, unspecified Study Quality: Fair ECG Rhythm: Sinus Conclusions: - Essentially normal study Findings Left Ventricle Normal left ventricular size, thickness, and systolic function. The visually estimated ejection fraction is between 65-70%. Spectral Doppler is indicative of a normal filling pattern. Right Ventricle Normal right ventricular cavity size and systolic function. Atria Both atria are normal in size. There is no evidence of interatrial shunt. Aortic Valve Normal aortic valve structure and function. There is no aortic valve stenosis. There is no aortic valve regurgitation. Mitral Valve Normal mitral valve structure and function. There is trace mitral valve regurgitation. There is no mitral valve stenosis. Pulmonic Valve The pulmonic valve was not well visualized. Tricuspid Valve Normal tricuspid valve structure. There is trace tricuspid valve regurgitation. The right ventricular systolic pressure is normal. The right ventricular systolic pressure is 23 mmHg. Normal right atrial pressure. There is no evidence of pulmonary hypertension. Great Vessels All visible segments of the aorta are normal in size. The pulmonary artery was not well visualized. Venous The inferior vena cava is normal in size and collapses greater than 50% with inspiration. Pericardium/Pleural There is no evidence of pericardial effusion. Prior Study Comparison No prior study available for comparison. Measurements 2D Linear Measurements IVSd: 1.12 0.6-0.9/0.6-1.0 cm LVIDd: 4.19 3.9-5.3/4.2-5.9 cm LVIDd Index: 2.48 2.4-3.2/2.2-3.1 cm/m2 LVIDs: 2.18 2.0-3.6 cm LVPWd: 0.98 0.7-1.1 cm LA Diam: 3.20 2.7-3.8/3.0-4.0 cm LAIDs Index: 1.89 1.5-2.3 cm/m2 LV Mass: 182.19 67-162/88-224 g LV Mass Index: 107.80 43-95/49-115 g/m2 LVOT Diam: 2.10 3.0+(-)1.3 cm 2D Systolic Function EF 4C: 68.10 >55% EF 2C: 67.50 >55% EF BiP: 67.50 >55% Mitral Valve MV Pk E: 0.86 MV PK A: 0.67 MV Decel Time: 167.00 E/A: 1.30 E'Lateral: 12.50 E'Medial: 8.16 E/E' Med: 10.50 E/E' Lat: 6.90 PHT: 49.00 MVA PHT: 4.49 Decel [place]: 5.12 Aortic Valve AoV Pk Malcom: 1.40 AoV Mn Malcom: 1.04 AoV VTI: 0.27 AoV Pk Grad: 8.00 Aov Mn Grad: 5.00 CHARAN Cont.VTI: 2.82 LVOT LVOT Pk Malcom: 1.21 LVOT Mn Malcom: 0.79 LVOT VTI: 0.22 LVOT Pk Grad: 6.00 LVOT Mn Grad: 3.00 LVOT Diam: 2.10 LVOT Area: 3.46 Diastolic Function MV Pk E: 0.86 MV Pk A: 0.67 E/A: 1.30 E'Medial: 8.16 E/E' Med: 10.50 E' Laterial: 12.50 E/E' Lat: 6.90 Right Ventricle TAPSE (mm): 23.20 TVS' Malcom: 13.20 Tricuspid Valve TR Pk Malcom: 2.23 TR Pk Grad: 20.00 RA Press: 3.00 RVSP: 23.00 Great Vessels Aorta Sinus of Valsalva: 2.81 2.0-3.[address] [place]: 2.49 1.7-3.4 cm Ao Asc: 3.00 2.1-3.4 cm Ao Arch: 3.00 Updated in Other Vendor System with Status of Final Colin Alejandra MD electronically signed on 01/09/2022 2:31:33 PM with status of Final
== END ==
LOC: HO.CARD 07:08
PROVIDERS: Visit Provider Internal Medicine
DX: E11.9 Type 2 diabetes mellitus without complications (principal); I10 Essential (primary) hypertension; E78.5 Hyperlipidemia, unspecified; R06.00 Dyspnea, unspecified
CPT/HCPCS: 93306

== ENCOUNTER 2022-03-28 07:52 | Outpatient (REF) | payer BC, SELFPAY ==
[2022-03-28 11:32] LABS: Hemoglobin 13.9 g/dl (12.0-16.0); Mean Corpuscular HGB Conc 30.9 g/dl (31.0-35.0); Mean Corpuscular Hemoglobin 26.4 pg (27.0-33.0); Mean Corpuscular Volume 85.4 fL (80.0-98.0); Mean Platelet Volume 9.2 fL (9.4-12.3); Platelet Count 368 X10*3/uL (160-400); Red Blood Count 5.27 X10*6/uL (4.20-5.50); Red Cell Distribution Width 14.6 % (11.0-16.0); White Blood Count 8.9 X10*3/uL (4.8-10.8)
[2022-03-28 11:41] LABS: Estimated Average Glucose 117 mg/dL; Hemoglobin A1c % 5.7 %
[2022-03-28 11:56] LABS: Alanine Aminotransferase 18 U/L (0-31); Albumin Level 4.6 g/dL (3.5-5.0); Alkaline Phosphatase 52 U/L (39-117); Anion Gap 14 (12-20); Aspartate Amino Transferase 14 U/L (5-31); Bilirubin Total 0.6 mg/dL (0.0-1.0); Blood Urea Nitrogen 16 mg/dL (9-16); Calcium 9.7 mg/dL (8.4-10.2); Carbon Dioxide 25 mmol/L (22-29); Chloride 105 mmol/L (96-108); Cholesterol 195 mg/dL; Estimated Glomerular Filt Rate > 60; Glucose Fasting 117 mg/dL (60-99); HDL Cholesterol 53 mg/dL; LDL Cholesterol Calculated 122 mg/dl; Potassium 4.9 mmol/L (3.3-5.1); Sodium 139 mmol/L (135-145); Total Protein 7.3 g/dL (6.5-8.0); Triglycerides 104 mg/dL
[2022-03-28 12:09] LABS: Creatinine Urine 127.23 mg/dL; Microalbum/Creatinine Ratio Ur 15.7 ug/mg cr
== END 2022-03-28 07:53 | disposition home or self-care (01) ==
LOC: HO.HMGCLDS 07:52
PROVIDERS: PCP Internal Medicine; Visit Provider Internal Medicine
DX: E11.9 Type 2 diabetes mellitus without complications (principal); I10 Essential (primary) hypertension; E78.5 Hyperlipidemia, unspecified
CPT/HCPCS: 36415; 80053; 80061; 82043; 83036; 85027

== ENCOUNTER 2022-07-25 07:19 | Outpatient (REF) | payer BC, SELFPAY ==
[2022-07-25 12:03] LABS: Alanine Aminotransferase 14 U/L (0-31); Albumin Level 4.7 g/dL (3.5-5.0); Alkaline Phosphatase 46 U/L (39-117); Anion Gap 17 (12-20); Aspartate Amino Transferase 13 U/L (5-31); Bilirubin Total 0.5 mg/dL (0.0-1.0); Blood Urea Nitrogen 17 mg/dL (9-16); Carbon Dioxide 25 mmol/L (22-29); Chloride 102 mmol/L (96-108); Cholesterol 350 mg/dL; Estimated Glomerular Filt Rate > 60; Glucose Fasting 98 mg/dL (60-99); HDL Cholesterol 51 mg/dL; LDL Cholesterol Calculated 272 mg/dl; Potassium 5.1 mmol/L (3.3-5.1); Sodium 139 mmol/L (135-145); Total Protein 7.6 g/dL (6.5-8.0); Triglycerides 137 mg/dL
[2022-07-25 12:04] LABS: Estimated Average Glucose 114 mg/dL; Hemoglobin A1c % 5.6 %
[2022-07-25 12:10] LABS: Creatinine Urine 81.16 mg/dL; Microalbum/Creatinine Ratio Ur 14.7 ug/mg cr
== END 2022-07-25 07:20 | disposition home or self-care (01) ==
LOC: HO.HMGCLDS 07:19
PROVIDERS: PCP Internal Medicine; Visit Provider Internal Medicine
DX: E11.9 Type 2 diabetes mellitus without complications (principal); E78.5 Hyperlipidemia, unspecified; I10 Essential (primary) hypertension
CPT/HCPCS: 36415; 80053; 80061; 82043; 83036

== ENCOUNTER 2022-10-31 06:57 | Outpatient (REF) | payer BC, SELFPAY ==
[2022-10-31 11:29] LABS: Alanine Aminotransferase 16 U/L (0-31); Albumin Level 4.6 g/dL (3.5-5.0); Alkaline Phosphatase 50 U/L (39-117); Anion Gap 12 (12-20); Aspartate Amino Transferase 14 U/L (5-31); Bilirubin Total 0.7 mg/dL (0.0-1.0); Blood Urea Nitrogen 19 mg/dL (9-16); Calcium 9.6 mg/dL (8.4-10.2); Carbon Dioxide 24 mmol/L (22-29); Chloride 106 mmol/L (96-108); Cholesterol 187 mg/dL; Estimated Glomerular Filt Rate > 60; Glucose Fasting 95 mg/dL (60-99); HDL Cholesterol 48 mg/dL; LDL Cholesterol Calculated 121 mg/dl; Potassium 4.6 mmol/L (3.3-5.1); Sodium 137 mmol/L (135-145); Total Protein 7.1 g/dL (6.5-8.0); Triglycerides 94 mg/dL
[2022-10-31 11:50] LABS: Creatinine Urine 96.47 mg/dL; Microalbum/Creatinine Ratio Ur 12.4 ug/mg cr
[2022-10-31 12:26] LABS: Estimated Average Glucose 117 mg/dL; Hemoglobin A1c % 5.7 %
== END 2022-10-31 06:58 | disposition home or self-care (01) ==
LOC: HO.HMGCLDS 06:57
PROVIDERS: PCP Internal Medicine; Visit Provider Internal Medicine
DX: E11.9 Type 2 diabetes mellitus without complications (principal); E78.5 Hyperlipidemia, unspecified; I10 Essential (primary) hypertension
CPT/HCPCS: 36415; 80053; 80061; 82043; 83036

== ENCOUNTER 2023-02-13 08:29 | Outpatient (REF) | payer BC, SELFPAY ==
[2023-02-13 11:30] LABS: MANUAL DIFF FLAG NO
[2023-02-13 11:33] LABS: Basophils Absolute Auto 0.1 X10*3/uL (0.0-0.2); Eosinophils Absolute Auto 0.2 X10*3/uL (0.0-0.4); Eosinophils Percent Auto 2.9 % (0-4); Hematocrit 44.1 % (37.0-47.0); Hemoglobin 14.2 g/dl (12.0-16.0); Imm Gran Abs Auto 0.01 X10*3/uL (0.00-0.03); Imm Gran Pct Auto 0.1 % (0.0-0.4); Lymphocytes Absolute Auto 2.9 X10*3/uL (1.2-4.9); Lymphocytes Percent Auto 35.5 % (20-40); Mean Corpuscular HGB Conc 32.2 g/dl (31.0-35.0); Mean Corpuscular Hemoglobin 27.1 pg (27.0-33.0); Mean Corpuscular Volume 84.2 fL (80.0-98.0); Mean Platelet Volume 9.4 fL (9.4-12.3); Monocytes Absolute Auto 0.5 X10*3/uL (0.1-1.2); Monocytes Percent Auto 5.7 % (2-11); Neutrophils Absolute Auto 4.5 x10*3/uL (2.0-8.3); Neutrophils Percent Auto 54.8 % (45-73); Platelet Count 355 X10*3/uL (160-400); Red Blood Count 5.24 X10*6/uL (4.20-5.50); Red Cell Distribution Width 14.7 % (11.0-16.0); White Blood Count 8.3 X10*3/uL (4.8-10.8)
[2023-02-13 11:44] LABS: Estimated Average Glucose 117 mg/dL; Hemoglobin A1c % 5.7 %
[2023-02-13 11:53] LABS: Alanine Aminotransferase 15 U/L (0-31); Albumin Level 4.5 g/dL (3.5-5.0); Alkaline Phosphatase 42 U/L (39-117); Anion Gap 14 (12-20); Aspartate Amino Transferase 14 U/L (5-31); Bilirubin Total 1.1 mg/dL (0.0-1.0); Blood Urea Nitrogen 12 mg/dL (9-16); Calcium 9.6 mg/dL (8.4-10.2); Carbon Dioxide 24 mmol/L (22-29); Chloride 109 mmol/L (96-108); Cholesterol 173 mg/dL; Estimated Glomerular Filt Rate > 60; Glucose Fasting 95 mg/dL (60-99); HDL Cholesterol 53 mg/dL; LDL Cholesterol Calculated 107 mg/dl; Potassium 4.6 mmol/L (3.3-5.1); Sodium 142 mmol/L (135-145); Total Protein 6.9 g/dL (6.5-8.0); Triglycerides 68 mg/dL
[2023-02-13 11:58] LABS: Creatinine Urine 168.62 mg/dL; Microalbum/Creatinine Ratio Ur 10.6 ug/mg cr
== END 2023-02-13 08:30 | disposition home or self-care (01) ==
LOC: HO.HMGCLDS 08:29
PROVIDERS: PCP Internal Medicine; Visit Provider Internal Medicine
DX: E11.9 Type 2 diabetes mellitus without complications (principal); E78.5 Hyperlipidemia, unspecified; I10 Essential (primary) hypertension
CPT/HCPCS: 36415; 80053; 80061; 82043; 83036; 85025

== ENCOUNTER 2023-05-24 13:39 | Outpatient (AMB) | payer BC, SELFPAY ==
[2023-05-24 13:46] VITALS: BP 134/80; PULSE 94; O2SAT 99; BMI 27.4
--- NOTE | 2023-05-24 13:46 | MHC.PC.OV ---
Vital Signs 05/24/23 13:46 Height 5 ft 2 in Weight 150 lb BMI 27.4 BP 134/80 Blood Pressure Location Lt brachial Position Sitting Pulse 94 Pulse Source Pulse Oximeter Pulse Oximetry (%) 99 Oxygen Delivery Method Room Air Intake Visit Reasons: Follow up pap Intake Note: Pt is here today for a pap. Allergies No Known Allergies Allergy (Verified 05/24/23 13:46) Medication List - Last Reconciled 05/24/23 by Judy Pierre MD amlodipine (Norvasc) 5 mg PO BID ascorbic acid (vitamin C) (Vitamin C) 500 mg PO DAILY atorvastatin 40 mg PO BEDTIME blood sugar diagnostic ([facility] Ultra Test strips) tid blood-glucose meter ([facility] Ultra2 Meter kit) As directed blood-glucose meter ([facility] [employer]Touch Ultra2 Meter) As directed empagliflozin (Jardiance) 25 mg PO DAILY hydrocortisone 2.5% 1 appl AR BID PRN lancets ([facility] [employer]inesTouch UltraSoft Lancets) tid metformin 1,000 mg PO BID metoprolol tartrate 75 mg (1.5 x 50 mg) PO Q12H multivitamin 1 tab PO DAILY olmesartan 40 mg PO DAILY OneTouch Delica Plus Lancet (lancets) Test blood sugar once a day NS triamterene-hydrochlorothiazid 37.5-25 mg 1 tab PO DAILY Tobacco use date assessed: 05/24/23 Dental Screening Dental Screen Date: 05/24/23 Did you have a dental visit in the last 12 months?: Yes Did you have a dental problem in the last 6 months where you did not have access to dental care?: No Was dental information given to patient?: Patient has dentist HPI Follow up pap HPI Details Pt presents for Pap smear. Patient denies complains and has regular menses. HTN, HYPERLIPID, DM 2, stable on meds. [facility] Medical History (Updated 05/24/23 @ 14:33 by Judy Pierre MD) Claudication Cough COVID-19 DM type 2 (diabetes mellitus, type 2) HUTCHINSON (dyspnea on exertion) HTN (hypertension) Hyperlipidemia Hypertension Family History Mother Arrhythmia Father Diabetes Maternal Grandmother Cancer Social History Household Members: Spouse Housing: House Do you presently have visiting nurse or other home services: No Patient Tobacco Use Status: Former Tobacco user (10 years ago) e-Cigarette/Vaping Use: Never Used service: No Current occupational status: employed Cognitive needs: No Hearing needs: No Vision needs: No Questionnaire Thrive Questionnaire Date Thrive assessed: 11/06/22 AUDIT C Alcohol Use Questionnaire (AUDIT-C) 1. How often do you have a drink containing alcohol?: Never 3. How often do you have six or more drinks on one occasion?: Never Total Score: 0 ROYCE-7 AMB Questionnaire ROYCE-7 Date ROYCE - 7 assessed: 11/06/22 Source: Developed by Drs. Balbir Marcelino, Helen Vyas, Mike David and colleagues, with an educational barbie from [employer]. Review of Systems Const All systems reviewed & are unremarkable except as noted in HPI and below Reports no additional complaints Eyes Reports no additional complaints ENT Reports no additional complaints Card Reports no additional complaints Resp Reports no additional complaints GI Reports no additional complaints Reports no additional complaints Physical exam (Primary Care) Vital Signs: Last Vital Signs Pulse 94 05/24/23 13:46 BP 134/80 05/24/23 13:46 Pulse Ox 99 05/24/23 13:46 Oxygen Delivery Method Room Air 05/24/23 13:46 BMI result Body Mass Index 27.4 Tobacco/Smoking Status: Tobacco use Status Tobacco use date assessed 05/24/23 05/24/23 13:57 Patient Tobacco Use Status Former Tobacco user (05/24/23 13:57 years ago) e-Cigarette/Vaping Use Never Used 05/24/23 13:57 Thrive Assessment: Date of Thrive Assessment Date Thrive assessed 11/06/22 05/24/23 13:57 Const General: no acute distress HENMT Face and sinus: Yes normal facial exam Resp Effort & Inspection: normal respiratory effort Auscultation: clear to auscultation bilaterally Cardio Rhythm: regular rhythm Heart sounds: S1 normal heart sound present and S2 normal heart sound present GI Inspection: Yes normal to inspection Palpation (GI): Soft to palpation Percussion: Yes normal to percussion Auscultation: normal bowel sounds External Female Exam: normal external appearance Speculum Exam - Vagina: normal appearance of the vagina Speculum Exam - Cervix: normal appearance of the cervix Assessment and Plan Assessment & Plan (1) Annual physical exam: Code(s): Z00.00 - Encounter for general adult medical examination without abnormal findings Plan: Pap smear was done (2) DM type 2 (diabetes mellitus, type 2): Comment: a1c>14% 09/2021 Code(s): E11.9 - Type 2 diabetes mellitus without complications Plan: Continue current medications Orders: Orders Pap Smear Today Z00.00 - Encounter for general adult medical examination without abnormal findings Coding Level of Care Code Est Pt Level 3 (80991) Diagnoses Annual physical exam Z00.00 DM type 2 (diabetes mellitus, type 2) E11.9
== END 2023-05-24 15:03 | disposition home or self-care (01) ==
PROVIDERS: PCP Internal Medicine; Visit Provider Internal Medicine
DX: Z00.00 Encounter for general adult medical examination without abnormal findings (principal); E11.9 Type 2 diabetes mellitus without complications
CPT/HCPCS: 99396

== ENCOUNTER 2023-05-24 14:38 | Outpatient (REF) | payer BC, SELFPAY ==
[2023-05-27 20:49] LABS: HPV mRNA E6/E7 Detected (Not Detected)
== END 2023-05-24 14:39 | disposition home or self-care (01) ==
LOC: HO.LNP 14:38
PROVIDERS: Visit Provider Internal Medicine
DX: Z01.419 Encounter for gynecological examination (general) (routine) without abnormal findings (principal)
CPT/HCPCS: 87624; 88142

== ENCOUNTER 2023-06-02 10:08 | Outpatient (AMB) | payer BC, SELFPAY ==
[2023-06-02 10:22] VITALS: BP 169/91; PULSE 94; BMI 27.7
--- NOTE | 2023-06-02 10:22 | MHC.OFFVIS ---
Intake Vital Signs 06/02/23 10:22 Height 5 ft 2 in Weight 151 lb 3.794 oz BMI 27.7 BP 169/91 H Blood Pressure Location Lt brachial Position Sitting Pulse 94 Intake Visit Reasons: Colonoscopy Screening Intake Note: Judy presents in office as a new.patient for a colonoscopy screening PT CC: pt reports having no concerns pt denies any other GI Issues Cable Dispatcher Required: No Accompanied by: Self / Same As Patient Allergies No Known Allergies Allergy (Verified 06/02/23 10:23) HPI Colonoscopy Screening HPI Details 48 year old? female here today for pre colonoscopy screening.? Patient was sent to us by her PCP.? This is her first colonoscopy screening.? Patient had positive Cologuard 03/10/2023. Patient denies any gastrointestinal symptoms in the past or at present.? Denies any personal or family history of gastrointestinal disease, colon polyps, or cancer.? Denies history of difficulty with sedation or anesthesia in the past.? Negative for history of sleep apnea.? Denies any history of cardiac, renal, pulmonary, or hepatic disease.?? No history of infectious? diseases like hepatitis A, B, C, HIV or tuberculosis.? Patient is not on any anticoagulation therapy. [facility] Medical History Claudication Cough COVID-19 DM type 2 (diabetes mellitus, type 2) HUTCIHNSON (dyspnea on exertion) HTN (hypertension) Hyperlipidemia Hypertension Family History Mother Arrhythmia Father Diabetes Maternal Grandmother Cancer Social History Household Members: Spouse Housing: House Do you presently have visiting nurse or other home services: No Patient Tobacco Use Status: Former Tobacco user (10 years ago) e-Cigarette/Vaping Use: Never Used service: No Current occupational status: employed Cognitive needs: No Hearing needs: No Vision needs: No Review of Systems Const Denies weight gain and Denies weight loss ENT Reports no additional complaints, Denies dysphagia and Denies odynophagia Card Reports no additional complaints Resp Reports no additional complaints GI Denies abdominal pain, Denies belching, Denies melena, Denies bloating, Denies change in bowel habits, Denies dysphagia, Denies excessive flatus, Denies dyspepsia, Denies heartburn, Denies diarrhea, Denies loose stools, Denies nausea, Denies odynophagia and Denies vomiting Musc Reports no additional complaints Neuro Reports no additional complaints Psych Reports no additional complaints Endo Reports no additional complaints Physical Exam Vital Signs: Last Vital Signs Pulse 94 06/02/23 10:22 BP 169/91 H 06/02/23 10:22 BMI result Body Mass Index 27.7 Const General: healthy appearing, no acute distress and well developed Nutritional Appearance: obese Orientation/consciousness: patient oriented x3 HEENT Head: Yes normal to inspection, Yes normocephalic and Yes atraumatic Face and sinus: Yes normal facial exam Mouth: Normal oral and palatal mucosa present Throat: Yes posterior oropharynx normal, Yes tonsils normal and Yes uvula midline Eyes General: appearance normal, both eyes and all related structures Neck Neck: Yes normal visual inspection, Yes full ROM and Yes trachea midline Thyroid: Thyroid normal Resp Effort & Inspection: normal respiratory effort, able to speak in complete sentences, no tracheal deviation and symmetric chest movement Auscultation: clear to auscultation bilaterally Cardio Rate: regular rate Heart sounds: S1 normal heart sound present and S2 normal heart sound present GI Inspection: Yes normal to inspection, No distended and Yes obesity Palpation (GI): Soft to palpation, not firm, nontender and No hepatosplenomegaly present Auscultation: normal bowel sounds General: Yes no CVA tenderness Back/Spine/Pelvis Back: no CVA tenderness Skin General skin exam: elasticity normal, turgor normal and dry skin Neuro General: patient oriented x3 Psych Appearance: grossly normal Mental Status: mental status grossly normal Speech and movement: Normal speech and movement present Assessment & Plan Assessment & Plan (1) Positive colorectal cancer screening using Cologuard test: Code(s): R19.5 - Other fecal abnormalities Plan: Patient denies any GI, cardiac or respiratory symptoms.? Denies any issues with anesthesia in the past.? Denies any history of sleep apnea.? No history infectious diseases in the past or present.? Not on any anticoagulation therapy.? No family or personal history of colon cancer or polyps.? Patient had positive Cologuard in March of 2023. Patient denies melena, hematochezia, unintentional weight loss or ribbon like stools.? Discussed at length the pre-procedure,? prep, diet & medications as well as what to expect prior, during and after the procedure.?? Stressed the importance of good bowel prep. ?Recommended the use of Vaseline or Calmoseptine OTC & baby wipes with bowel movements to promote comfort.? ?Patient verbalizes understanding and agrees to plan of care.? She was given the opportunity to ask questions and all questions answered.? We will see her after the procedure.? Coding Level of Care Code New Pt Level 3 (26179) Diagnoses Positive colorectal cancer screening using Cologuard test R19.5 Time Spent (min) 40 Comment 30 minutes spent with patient and additional 10 minutes spent reviewing her records
== END 2023-06-02 11:51 | disposition home or self-care (01) ==
PROVIDERS: PCP Internal Medicine; Visit Provider Nurse Practitioner Family
DX: R19.5 Other fecal abnormalities (principal)
CPT/HCPCS: 99203

== ENCOUNTER → 2023-06-02 10:08 | Outpatient (BNVA) | payer BC, SELFPAY | PROVIDERS: PCP Internal Medicine; Visit Provider Nurse Practitioner Family ==

== ENCOUNTER 2023-06-22 11:57 | Day surgery (SDC) | payer BC, SELFPAY ==
[2023-06-17 15:00] VITALS: BMI 27.6
--- NOTE | 2023-06-21 09:35 | P.CONAN_ITS ---
Documented by User: Rosa Mckeon NP 06/21/23 09:36 HPI - Anesthesia Eval Consult details Narrative: 48yo F for Colonoscopy PMFSH Active Problems Active Problems: All Active Problems (Updated 06/17/23 @ 14:58 by Shayla Looney RN) Annual physical exam (Acute) Positive colorectal cancer screening using Cologuard test (Acute) Sleep apnea (Acute) Pneumonia due to COVID-19 virus (Acute) Cough (Acute) HUTCHINSON (dyspnea on exertion) (Acute) Claudication (Acute) Hyperlipidemia (Acute) DM type 2 (diabetes mellitus, type 2) (Acute) COVID-19 (Acute) HTN (hypertension) (Acute) Past Medical History Medical History (Updated 06/17/23 @ 14:58 by Shayla Looney RN) Cough HUTCHINSON (dyspnea on exertion) Claudication Hyperlipidemia DM type 2 (diabetes mellitus, type 2) COVID-19 HTN (hypertension) Hypertension Family History Family History Mother Arrhythmia Father Diabetes Maternal Grandmother Cancer Surgical History Surgical History (Updated 06/17/23 @ 14:59 by Shayla Looney RN) Surgical history unknown Social History Social History Household Members: Spouse Housing: House Do you presently have visiting nurse or other home services: No Patient Tobacco Use Status: Former Tobacco user e-Cigarette/Vaping Use: Never Used Use of substances other than those prescribed or required for medical reasons: No Are you DNR?: No Advance Directives: No Advance Directives Information Provided: Yes service: No Current occupational status: employed Cognitive needs: No Hearing needs: No Vision needs: No Meds Allergies Allergy/AdvReac Type Severity Reaction Status Date / Time No Known Allergies Allergy Verified 06/02/23 10:23 Home Medications Medication Instructions Recorded Confirmed Last Taken Type multivitamin 1 tab PO DAILY 08/26/21 06/17/23 Unknown History blood-glucose meter (OneTouch #1 ea 09/18/21 05/24/23 Unknown History Ultra2 Meter) Exam Exam Date and Time: June 21, 2023 0935 Height,Weight and Vital Signs: Height 5 ft 2 in Weight 68.492 kg Pertinent Lab Results Pertinent Lab Results: Laboratory Tests 05/13/23 08:38 WBC 8.3 Hgb 14.2 Hct 44.1 Plt Count 355 Sodium 142 Potassium 4.6 Chloride 109 H Carbon Dioxide 24 BUN 12 Creatinine 0.76 Assessment and Plan Assessment Anesthesia Assessment: Chart Reviewed Documented by User: Zen Hicks MD 06/22/23 14:28 [facility] Past Medical History Medical History (Updated 06/17/23 @ 14:58 by Shayla Looney, RN) Cough HUTCHINSON (dyspnea on exertion) Claudication Hyperlipidemia DM type 2 (diabetes mellitus, type 2) COVID-19 HTN (hypertension) Hypertension Patient : No Family History Family History Mother Arrhythmia Father Diabetes Maternal Grandmother Cancer Family history of problems with anesthesia: No Surgical History Surgical History (Updated 06/17/23 @ 14:59 by Shayla Looney RN) Surgical history unknown History of Problems with Anesthesia: No Social History Social History Household Members: Spouse Housing: House Do you presently have visiting nurse or other home services: No Patient Tobacco Use Status: Former Tobacco user e-Cigarette/Vaping Use: Never Used Use of substances other than those prescribed or required for medical reasons: No Are you DNR?: No Advance Directives: No Advance Directives Information Provided: Yes service: No Current occupational status: employed Cognitive needs: No Hearing needs: No Vision needs: No Meds Allergies Allergy/AdvReac Type Severity Reaction Status Date / Time No Known Allergies Allergy Verified 06/02/23 10:23 Home Medications Medication Instructions Recorded Confirmed Last Taken Type multivitamin 1 tab PO DAILY 08/26/21 06/17/23 Unknown History blood-glucose meter (OneTouch #1 ea 09/18/21 05/24/23 Unknown History Ultra2 Meter) Exam Airway Mallampati Class: II TM Dist: <=3cm Neck ROM: Full Loose/Missing/Broken Teeth: No Heart: ok Lungs: ok Assessment and Plan Assessment Anesthesia Assessment: Anesthesia Plan Discussed Final Anesthetic Review Family History of Problems with Anesthesia: No History of Problems with Anesthesia: No NPO: Yes ASA Class: III Final Preanesthetic Review: No Changes in Pt Med Stat, Meds/Allgs Chart Reviewed, Consent Obtained/Reviewed and Anes Risks/Benef Reviewed Patient Risk: Intermediate Procedure Risk: Low Anesthetic Plan Anesthetic Plan: MAC: and Agree w/ Assess. and Plan Disposition: Standard PACU
--- NOTE | 2023-06-22 12:55 | MHC.SHP ---
Pre-Procedural Eval Section A Date of Service: 06/22/23 The History & Physical has been completed within 30 days and I have reviewed it.: Yes Section B Chief Complaint: positive cologuard Allergies: Allergies Allergy/AdvReac Type Severity Reaction Status Date / Time No Known Allergies Allergy Verified 06/02/23 10:23 Plan Diagnosis/Plan: Unchanged I have reviewed the history and physical and performed a pertinent physical examination on my patient. No changes have occurred unless specified. Time Spent With Patient Time: Total time managing care of this patient today ____ minutes.
[2023-06-22 13:30] VITALS: BP 159/94; PULSE 109; RESP 16; TEMP 37.1; O2SAT 98
[2023-06-22 13:38] LABS: Glucose, Whole Blood 160 mg/dL (60-115)
[2023-06-22 13:38] LABS: UPreg QC Valid YES; Urine Pregnancy NEGATIVE (NEGATIVE)
--- NOTE | 2023-06-22 14:44 | W.PM.OPN ---
Operative Note Operative Note Date of Service: 06/22/23 Narrative: Procedure: Colonoscopy Indication: Positive cologuard Endoscopist: Michelle Sullivan MD Anesthesia Provider: Zen Hicks MD Anesthesia type: MAC Instrument: Olympus [id number]-[id number] Consent: Indication, risks vs benefits, and alternatives were discussed with the patient who gave written informed consent to proceed. A Korean economics faculty member was utilized to assist with the consent. EKG, pulse, pulse oximetry and blood pressure were monitored throughout the procedure. Please see anesthesia flowsheet. Procedure: The patient was brought to the procedure room and placed in the left lateral decubitus position. IV medications were administered by the anesthesia provider in attendance. A digital rectal exam was performed which was abnormal due to finding of hemorrhoids. A distal attachment cap was affixed to the tip of the scope and the colonoscope was then inserted through the anus and advanced through the colon to the cecum at 70 cm,and terminal ileum. Mucosa was carefully examined under high definition white light as the instrument was slowly withdrawn in a retrograde panoramic fashion. Retroflexion was performed in ascending colon and rectum. The procedure was not difficult. There were no immediate obvious complications. The quality of the prep was BBPS: 2+2+3 = adequate Withdrawal time 11 minutes. Limitations: No limitations. Findings: Mucosa: Normal to cecum and terminal ileum. Protruding lesions: 1 sessile polyp of size 4 mm in ascending colon. Cold snare polypectomy was performed. The polyp was completely removed and retrieved. Medium internal hemorrhoids without stigmata of recent bleeding. Impression: 1. Normal colon and terminal ileum mucosa 2. Total of 1 polyp removed from ascending colon. 3. External and internal hemorrhoids Recommendations: - Follow path results. - Repeat colonoscopy in 7-10 years if polyp is an adenoma.
[2023-06-22 14:49] VITALS: BP 115/71; PULSE 107; RESP 16; TEMP 37.2; O2SAT 97
[2023-06-22 15:03] VITALS: BP 128/93; PULSE 94; RESP 16; O2SAT 97
[2023-06-22 15:18] VITALS: BP 138/93; PULSE 94; RESP 16; O2SAT 97
[2023-06-22 15:45] VITALS: BP 157/90; PULSE 97; RESP 16; TEMP 36.9; O2SAT 97
== END 2023-06-22 15:53 | disposition home or self-care (01) ==
PROVIDERS: Nurse Practitioner; PCP Internal Medicine; Visit Provider Internal Medicine
PROC: 0DJD8ZZ Inspection of Lower Intestinal Tract, Via Natural or Artificial Opening Endoscopic (ICD-10-PCS; CPT 45378; principal; 2023-06-22 14:10)
DX: R19.5 Other fecal abnormalities (principal); D12.2 Benign neoplasm of ascending colon; K64.8 Other hemorrhoids; K64.4 Residual hemorrhoidal skin tags; I10 Essential (primary) hypertension; E78.5 Hyperlipidemia, unspecified; E11.9 Type 2 diabetes mellitus without complications; Z79.84 Long term (current) use of oral hypoglycemic drugs; Z79.899 Other long term (current) drug therapy; Z86.16 Personal history of COVID-19; Z87.891 Personal history of nicotine dependence
CPT/HCPCS: 45385; 81025; 82947; 88305

== ENCOUNTER → 2023-06-22 11:57 | Outpatient (BNV) | payer BC, SELFPAY | PROVIDERS: PCP Internal Medicine; Visit Provider Internal Medicine | DX: Z12.11 Encounter for screening for malignant neoplasm of colon (principal); D12.4 Benign neoplasm of descending colon; K64.9 Unspecified hemorrhoids | CPT/HCPCS: 45385 ==

== ENCOUNTER 2023-07-06 11:45 | Outpatient (AMB) | payer BC, SELFPAY ==
[2023-07-06 11:54] VITALS: BP 127/74; PULSE 83; BMI 28.4
--- NOTE | 2023-07-06 11:54 | A.OFFVIS_ITS ---
Intake Vital Signs 07/06/23 11:54 Height 5 ft 2 in Weight 155 lb 3.287 oz BMI 28.4 BP 127/74 Blood Pressure Location Lt brachial Position Sitting Pulse 83 Intake Visit Reasons: s/p colon Nate Intake Note: Patient presents to in office visit today in follow up of colonoscopy. CC: Patient underwent colonoscopy with Dr. Sullivan on 06/22/23. Reports doing well and denies having any GI symptoms or concerns today. Allergies No Known Allergies Allergy (Verified 07/06/23 11:57) HPI s/p colon Nate HPI Details LAST VISIT Positive colorectal cancer screening using Cologuard test Patient denies any GI, cardiac or respiratory symptoms.? Denies any issues with anesthesia in the past.? Denies any history of sleep apnea.? No history infectious diseases in the past or present.? Not on any anticoagulation therapy.? No family or personal history of colon cancer or polyps.? Patient had positive Cologuard in March of 2023. Patient denies melena, hematochezia, unintentional weight loss or ribbon like stools.? Discussed at length the pre-procedure,? prep, diet & medications as well as what to expect prior, during and after the procedure.?? Stressed the importance of good bowel prep. ?Recommended the use of Vaseline or Calmoseptine OTC & baby wipes with bowel movements to promote comfort.? ?Patient verbalizes understanding and agrees to plan of care.? She was given the opportunity to ask questions and all questions answered.? We will see her after the procedure.? COLONOSCOPY: Findings: Mucosa: Normal to cecum and terminal ileum. Protruding lesions: * 1 sessile polyp of size 4 mm in ascending colon. Cold snare polypectomy was performed. The polyp was completely removed and retrieved. * Medium internal hemorrhoids without stigmata of recent bleeding. Impression: 1. Normal colon and terminal ileum mucos a 2. Total of 1 polyp removed from ascendi ng colon. 3. External and internal hemorrhoids Recommendations: - Follow path results. - Repeat colonoscopy in 7-10 years if po lyp is an adenoma. PATHOLOGY RESULTS: Diagnosis Colon, ascending, polypectomy: Tubular adenoma; negative for high-grade dysplasia TODAY'S VISIT: Patient is here today for follow-up and to discuss colonoscopy results. Patient denies any ill effects from the prep, anesthesia or procedure itself. Patient reports to be feeling well. Reports that she is moving her bowels without any issues. Colonoscopy results discussed with patient. Patient denies any melena, hematochezia, unintentional weight loss or ribbon like stools. Patient denies any dyspepsia, dysphagia or odynophagia. Patient reports that she occasionally has rectal discomfort and occasional blood when wiping after bowel movement. Patient denies being constipated. History of hemorrhoids. External in internal hemorrhoids found on colonoscopy. [facility] Medical History Cough HUTCHINSON (dyspnea on exertion) Claudication Hyperlipidemia DM type 2 (diabetes mellitus, type 2) COVID-19 HTN (hypertension) Hypertension Surgical History H/O colonoscopy Family History Mother Arrhythmia Father Diabetes Maternal Grandmother Cancer Social History Household Members: Spouse Housing: House Do you presently have visiting nurse or other home services: No Patient Tobacco Use Status: Former Tobacco user e-Cigarette/Vaping Use: Never Used service: No Current occupational status: employed Cognitive needs: No Hearing needs: No Vision needs: No Review of Systems Const Denies weight gain and Denies weight loss ENT Reports no additional complaints, Denies dysphagia and Denies odynophagia Card Reports no additional complaints Resp Reports no additional complaints GI Denies abdominal pain, Denies belching, Denies melena, Denies bloating, Denies change in bowel habits, Denies dysphagia, Denies excessive flatus, Denies dyspepsia, Denies heartburn, Denies diarrhea, Denies loose stools, Denies nausea, Denies odynophagia and Denies vomiting Musc Reports no additional complaints Neuro Reports no additional complaints Psych Reports no additional complaints Endo Reports no additional complaints Physical Exam Vital Signs: Last Vital Signs Pulse 83 07/06/23 11:54 BP 127/74 07/06/23 11:54 BMI result Body Mass Index 28.4 Const General: healthy appearing, no acute distress and well developed Nutritional Appearance: well nourished Orientation/consciousness: patient oriented x3 HEENT Head: Yes normal to inspection, Yes normocephalic and Yes atraumatic Face and sinus: Yes normal facial exam Mouth: Normal oral and palatal mucosa present Throat: Yes posterior oropharynx normal, Yes tonsils normal and Yes uvula midline Eyes General: appearance normal, both eyes and all related structures Neck Neck: Yes normal visual inspection, Yes full ROM and Yes trachea midline Thyroid: Thyroid normal Resp Effort & Inspection: normal respiratory effort, able to speak in complete sentences, no tracheal deviation and symmetric chest movement Auscultation: clear to auscultation bilaterally Cardio Rate: regular rate Heart sounds: S1 normal heart sound present and S2 normal heart sound present GI Inspection: Yes normal to inspection and No distended Palpation (GI): Soft to palpation, not firm, nontender and No hepatosplenomegaly present Auscultation: normal bowel sounds General: Yes no CVA tenderness Back/Spine/Pelvis Back: no CVA tenderness Skin General skin exam: elasticity normal, turgor normal and dry skin Neuro General: patient oriented x3 Psych Appearance: grossly normal Mental Status: mental status grossly normal Speech and movement: Normal speech and movement present Assessment & Plan Assessment & Plan (1) Status post colonoscopy: Code(s): Z98.890 - Other specified postprocedural states (2) Hemorrhoids without complication: Code(s): K64.9 - Unspecified hemorrhoids (3) Tubular adenoma: Code(s): D36.9 - Benign neoplasm, unspecified site Plan Patient denies any ill effects from the prep, anesthesia or procedure itself. Patient was found to have a 1 small tubular adenoma without high-grade dysplasia or carcinoma. Will repeat colorectal screening 7 years, sooner if clinically necessary. Patient does report occasional discomfort with hemorrhoids. Will send her script for Proctosol. Patient was also encouraged to do Sitz baths, increase fiber in her diet, drinking plenty fluids. Increase activity to promote better bowel motility. Patient will follow-up in the office in 1 year, sooner on as needed basis. Patient is agreeable to this plan and verbalizes understanding of instructions. She was given the opportunity to ask questions and all questions answered. Thank you for allowing me to participate in her care Medications: New hydrocortisone 2.5% (Proctosol HC) 1 appl [place] BID-QID PRN 30 grams 2RF hemorrhoids K64.9 - Unspecified hemorrhoids Coding Level of Care Code Est Pt Level 3 (49747) Diagnoses Status post colonoscopy Z98.890 Hemorrhoids without complication K64.9 Tubular adenoma D36.9 Time Spent (min) 30 Comment 20 minutes spent with patient and additional 10 minutes spent reviewing her records
== END 2023-07-06 12:48 | disposition home or self-care (01) ==
PROVIDERS: PCP Internal Medicine; Visit Provider Nurse Practitioner Family
DX: Z98.890 Other specified postprocedural states (principal); K64.9 Unspecified hemorrhoids; D36.9 Benign neoplasm, unspecified site
CPT/HCPCS: 99213

== ENCOUNTER → 2023-07-06 11:45 | Outpatient (BNVA) | payer BC, SELFPAY | PROVIDERS: PCP Internal Medicine; Visit Provider Nurse Practitioner Family ==

== ENCOUNTER 2023-08-28 06:46 | Outpatient (REF) | payer BC, SELFPAY ==
[2023-08-28 11:02] LABS: MANUAL DIFF FLAG NO
[2023-08-28 11:05] LABS: Basophils Absolute Auto 0.1 X10*3/uL (0.0-0.2); Basophils Percent Auto 1.3 % (0-2); Eosinophils Absolute Auto 0.2 X10*3/uL (0.0-0.4); Eosinophils Percent Auto 2.6 % (0-4); Hematocrit 46.5 % (37.0-47.0); Hemoglobin 14.9 g/dl (12.0-16.0); Imm Gran Abs Auto 0.02 X10*3/uL (0.00-0.03); Imm Gran Pct Auto 0.3 % (0.0-0.4); Lymphocytes Percent Auto 38.1 % (20-40); Mean Corpuscular Hemoglobin 28.1 pg (27.0-33.0); Mean Corpuscular Volume 87.6 fL (80.0-98.0); Mean Platelet Volume 9.5 fL (9.4-12.3); Monocytes Absolute Auto 0.4 X10*3/uL (0.1-1.2); Monocytes Percent Auto 5.6 % (2-11); Neutrophils Absolute Auto 4.1 x10*3/uL (2.0-8.3); Neutrophils Percent Auto 52.1 % (45-73); Platelet Count 422 X10*3/uL (160-400); Red Blood Count 5.31 X10*6/uL (4.20-5.50); Red Cell Distribution Width 13.8 % (11.0-16.0); White Blood Count 7.8 X10*3/uL (4.8-10.8)
[2023-08-28 11:27] LABS: Estimated Average Glucose 120 mg/dL; Hemoglobin A1c % 5.8 % (<6.0)
[2023-08-28 11:35] LABS: Alanine Aminotransferase 15 U/L (0-31); Albumin Level 4.4 g/dL (3.5-5.0); Alkaline Phosphatase 44 U/L (39-117); Anion Gap 14 (12-20); Aspartate Amino Transferase 13 U/L (5-31); Bilirubin Total 0.4 mg/dL (0.0-1.0); Blood Urea Nitrogen 17 mg/dL (9-16); Calcium 9.5 mg/dL (8.4-10.2); Carbon Dioxide 24 mmol/L (22-29); Chloride 106 mmol/L (96-108); Cholesterol 267 mg/dL (<200); Estimated Glomerular Filt Rate > 60; Glucose Fasting 110 mg/dL (60-99); HDL Cholesterol 52 mg/dL (>40); LDL Cholesterol Calculated 193 mg/dL (<100); Potassium 4.8 mmol/L (3.3-5.1); Sodium 139 mmol/L (135-145); Total Protein 7.4 g/dL (6.5-8.0); Triglycerides 113 mg/dL (<150)
[2023-08-28 11:51] LABS: TSH reflex Free T4 1.43 uIU/mL (0.32-4.0)
[2023-08-28 12:16] LABS: Creatinine Urine 56.34 mg/dL; Microalbumin Urine < 5.0 mg/L
== END 2023-08-28 06:47 | disposition home or self-care (01) ==
LOC: HO.HMGCLDS 06:46
PROVIDERS: PCP Internal Medicine; Visit Provider Internal Medicine
DX: E11.9 Type 2 diabetes mellitus without complications (principal); I10 Essential (primary) hypertension; E78.5 Hyperlipidemia, unspecified
CPT/HCPCS: 36415; 80053; 80061; 82043; 82570; 83036; 84443; 85025

== ENCOUNTER 2023-09-01 07:56 | Outpatient (AMB) | payer BC, SELFPAY ==
[2023-09-01 08:09] VITALS: BP 134/82; PULSE 75; O2SAT 98; BMI 27.8
--- NOTE | 2023-09-01 08:09 | MHC.PC.OV ---
Vital Signs 09/01/23 08:09 Height 5 ft 2 in Weight 152 lb BMI 27.8 BP 134/82 Blood Pressure Location Lt brachial Position Sitting Pulse 75 Pulse Source Pulse Oximeter Pulse Oximetry (%) 98 Oxygen Delivery Method Room Air Intake Visit Reasons: Annual PE Intake Note: Pt is here today for PE. Allergies atorvastatin Adverse Reaction (Intermediate, Verified 09/01/23 10:05) Muscle Pain Medication List - Last Reconciled 09/01/23 by Judy Pierre MD amlodipine (Norvasc) 5 mg PO BID ascorbic acid (vitamin C) (Vitamin C) 500 mg PO DAILY atorvastatin 40 mg PO BEDTIME blood sugar diagnostic ([employer] TechnologyTouch Ultra Test strips) tid blood-glucose meter ([employer] TechnologyTouch Ultra2 Meter kit) As directed blood-glucose meter ([employer] TechnologyTouch Ultra2 Meter) As directed empagliflozin (Jardiance) 25 mg PO DAILY hydrocortisone 2.5% (Proctosol HC) 1 appl SD BID-QID PRN lancets (OneTouch UltraSoft Lancets) tid metformin 1,000 mg PO BID metoprolol tartrate 75 mg (1.5 x 50 mg) PO Q12H multivitamin 1 tab PO DAILY olmesartan 40 mg PO DAILY OneTouch Delica Plus Lancet (lancets) Test blood sugar once a day NS Tobacco use date assessed: 09/01/23 Dental Screening Dental Screen Date: 09/01/23 Did you have a dental visit in the last 12 months?: Yes Did you have a dental problem in the last 6 months where you did not have access to dental care?: No Was dental information given to patient?: Patient has dentist HPI Annual PE HPI Details Pt presents for PE.She stopped taking Lipitor because of body aches. [facility] Medical History (Updated 09/01/23 @ 10:17 by Judy Pierre MD) HUTCHINSON (dyspnea on exertion) Hyperlipidemia DM type 2 (diabetes mellitus, type 2) COVID-19 HTN (hypertension) Hypertension Surgical History H/O colonoscopy Family History Mother Arrhythmia Father Diabetes Maternal Grandmother Cancer Social History Household Members: Spouse Housing: House Do you presently have visiting nurse or other home services: No Patient Tobacco Use Status: Former Tobacco user e-Cigarette/Vaping Use: Never Used service: No Current occupational status: employed Cognitive needs: No Hearing needs: No Vision needs: No Questionnaire Thrive Questionnaire Date Thrive assessed: 11/06/22 ROYCE-7 AMB Questionnaire ROYCE-7 Date ROYCE - 7 assessed: 11/06/22 Source: Developed by Drs. Balbir Marcelino, Helen Vyas, Mike David and colleagues, with an educational barbie from [employer]. Review of Systems Const All systems reviewed & are unremarkable except as noted in HPI and below Reports no additional complaints Eyes Reports no additional complaints ENT Reports no additional complaints Card Reports no additional complaints Resp Reports no additional complaints GI Reports no additional complaints Reports no additional complaints Physical exam (Primary Care) Vital Signs: Last Vital Signs Pulse 75 09/01/23 08:09 BP 134/82 09/01/23 08:09 Pulse Ox 98 09/01/23 08:09 Oxygen Delivery Method Room Air 09/01/23 08:09 BMI result Body Mass Index 27.8 Tobacco/Smoking Status: Tobacco use Status Tobacco use date assessed 09/01/23 09/01/23 08:13 Patient Tobacco Use Status Former Tobacco user 09/01/23 08:13 e-Cigarette/Vaping Use Never Used 09/01/23 08:13 Thrive Assessment: Date of Thrive Assessment Date Thrive assessed 11/06/22 09/01/23 08:13 Const General: no acute distress HENMT Head: Yes normal to inspection Ears: hearing grossly normal bilaterally General nose exam: Normal external nose present Throat: Yes posterior oropharynx normal Eyes General: appearance normal, both eyes and all related structures Neck Neck: Yes no lymphadenopathy and Yes supple Resp Effort & Inspection: normal respiratory effort Auscultation: clear to auscultation bilaterally Cardio Rhythm: regular rhythm Heart sounds: S1 normal heart sound present and S2 normal heart sound present GI Inspection: Yes normal to inspection Palpation (GI): Soft to palpation Percussion: Yes normal to percussion Auscultation: normal bowel sounds Assessment and Plan Assessment & Plan (1) DM type 2 (diabetes mellitus, type 2): Comment: A1C>14% 09/2021 / 5.7% on 02/13/23 Code(s): E11.9 - Type 2 diabetes mellitus without complications Plan: A1C is 5.8, cont ADA, exercise, current meds (2) Hyperlipidemia: Comment: Atorvastatin myalgia Code(s): E78.5 - Hyperlipidemia, unspecified Plan: try Crestor 20 mg and COQ10 (3) HTN (hypertension): Code(s): I10 - Essential (primary) hypertension Plan: cont meds (4) Annual physical exam: Code(s): Z00.00 - Encounter for general adult medical examination without abnormal findings Plan: well balanced diet, exercise, f/u 3 months (5) Vaginal high risk HPV DNA test positive: Comment: nl Pap and +HPV 05/26, repeat in 1 year Code(s): R87.811 - Vaginal high risk human papillomavirus (HPV) DNA test positive (6) Mammogram declined: Comment: 08/26 Code(s): Z53.20 - Procedure and treatment not carried out because of patient's decision for unspecified reasons Medications: New rosuvastatin (Crestor) 20 mg PO DAILY 90 tabs 1RF Coding Level of Care Code Est Pt Prev Care 40-64y(68025) Diagnoses DM type 2 (diabetes mellitus, type 2) E11.9 Hyperlipidemia E78.5 HTN (hypertension) I10 Annual physical exam Z00.00 Vaginal high risk HPV DNA test positive R87.811 Mammogram declined Z53.20
== END 2023-09-01 10:20 | disposition home or self-care (01) ==
PROVIDERS: Visit Provider Internal Medicine
DX: E11.9 Type 2 diabetes mellitus without complications (principal); E78.5 Hyperlipidemia, unspecified; I10 Essential (primary) hypertension; Z00.00 Encounter for general adult medical examination without abnormal findings; R87.811 Vaginal high risk human papillomavirus (HPV) DNA test positive; Z53.20 Procedure and treatment not carried out because of patient's decision for unspecified reasons
CPT/HCPCS: 99396

== ENCOUNTER 2023-12-01 09:57 | Outpatient (AMB) | payer BC, SELFPAY ==
--- NOTE | 2023-12-01 10:16 | A.OFFPC_ITS ---
Vital Signs 12/01/23 10:17 Height 5 ft 2 in Weight 153 lb BMI 28.0 BP 134/78 Blood Pressure Location Lt brachial Position Sitting Pulse 78 Pulse Source Pulse Oximeter Pulse Oximetry (%) 98 Oxygen Delivery Method Room Air Intake Visit Reasons: 3 month follow up - see comments Intake Note: Pt is here today for 3 months follow up visit. Allergies atorvastatin Adverse Reaction (Intermediate, Verified 12/01/23 10:23) Muscle Pain Medication List - Last Reconciled 12/01/23 by Judy Pierre MD amlodipine (Norvasc) 5 mg PO BID ascorbic acid (vitamin C) (Vitamin C) 500 mg PO DAILY atorvastatin 40 mg PO BEDTIME blood sugar diagnostic (fanatixTouch Ultra Test strips) tid blood-glucose meter (fanatixTouch Ultra2 Meter kit) As directed blood-glucose meter (OneTouch Ultra2 Meter) As directed empagliflozin (Jardiance) 25 mg PO DAILY hydrocortisone 2.5% (Proctosol HC) 1 appl [place] BID-QID PRN lancets (OneTouch UltraSoft Lancets) tid metformin 1,000 mg PO BID metoprolol tartrate 75 mg (1.5 x 50 mg) PO Q12H multivitamin 1 tab PO DAILY olmesartan 40 mg PO DAILY OneTouch Delica Plus Lancet (lancets) Test blood sugar once a day NS rosuvastatin (Crestor) 20 mg PO DAILY Tobacco use date assessed: 12/01/23 Dental Screening Dental Screen Date: 12/01/23 Did you have a dental visit in the last 12 months?: Yes Did you have a dental problem in the last 6 months where you did not have access to dental care?: No Was dental information given to patient?: Patient has dentist HPI 3 month follow up - see comments HPI Details Patient presents for the follow-up of hypertension hyperlipidemia type 2 diabetes stable on current medications PF[facility] Medical History HUTCHINSON (dyspnea on exertion) Hyperlipidemia DM type 2 (diabetes mellitus, type 2) COVID-19 HTN (hypertension) Hypertension Surgical History H/O colonoscopy Family History Mother Arrhythmia Father Diabetes Maternal Grandmother Cancer Social History Household Members: Spouse Housing: House Do you presently have visiting nurse or other home services: No Patient Tobacco Use Status: Former Tobacco user e-Cigarette/Vaping Use: Never Used service: No Current occupational status: employed Cognitive needs: No Hearing needs: No Vision needs: No Questionnaire PHQ-9 Over the last 2 weeks, how often have you been bothered by any of the following problems? 1. Little interest or pleasure in doing things: not at all 2. Feeling down, depressed, or hopeless: not at all 3. Trouble falling or staying asleep, or sleeping too much: not at all 4. Feeling tired or having little energy: not at all 5. Poor appetite or overeating: not at all 6. Feeling bad about yourself - or that you are a failure or have let yourself or your family down: not at all 7. Trouble concentrating on things, such as reading the newspaper or watching television: not at all 8. Moving or speaking so slowly that other people could have noticed. Or the opposite - being so fidgety or restless that you have been moving around a lot more than usual: not at all 9. Thoughts that you would be better off or of hurting yourself in some way: not at all Total score: 0 Depression Screening Interpretation: Negative Depression Screening Done: Yes Source: Developed by Drs. Balbir Marcelino, Helen Vyas, Mike David and colleagues, with an educational barbie from [employer] Thrive Questionnaire Date Thrive assessed: 12/01/23 I am a: Patient What is your living situation today?: I have a steady place to live Within the past 12 months, did the food you bought not last and you didn't have the money to get more?: Never true Within the past 12 months, did you worry whether your food would run out before you got money to buy more?: Never true Do you have trouble paying for medicines?: No Do you have trouble getting transportation to medical appointments?: No Do you have trouble paying your heating and electricity bill?: No Do you have trouble taking care of your child, family member or friend?: No Do you have trouble with day-to-day activities such as bathing, preparing meals, shopping, managing finances, etc.?: No Are you currently unemployed and looking for a job?: No Are you interested in more education?: No Please select the resources that you would like help with: None Currently or been in a relationship where the following occur: no concerns reported THRIVE Score: 0 AUDIT C Alcohol Use Questionnaire (AUDIT-C) 1. How often do you have a drink containing alcohol?: Never 3. How often do you have six or more drinks on one occasion?: Never Total Score: 0 ROYCE-7 AMB Questionnaire ROYCE-7 Date ROYCE - 7 assessed: 12/01/23 Feeling nervous, anxious, or on edge: 0 = Not at all Not being able to stop or control worryin = Not at all Worrying too much about different things: 0 = Not at all Trouble relaxin = Not at all Being so restless that it is hard to sit still: 0 = Not at all Becoming easily annoyed or irritable: 0 = Not at all Feeling afraid as if something awful might happen: 0 = Not at all Total ROYCE-7 score (0-4 normal; 5-9 mild; 10-14 moderate; 15-21 severe): 0 Source: Developed by Drs. Balbir Marcelino, Helen Vyas, Mike David and colleagues, with an educational barbie from [employer]. Review of Systems Const All systems reviewed & are unremarkable except as noted in HPI and below Reports no additional complaints Eyes Reports no additional complaints ENT Reports no additional complaints Card Reports no additional complaints Resp Reports no additional complaints GI Reports no additional complaints Physical exam (Primary Care) Vital Signs: Last Vital Signs Pulse 78 12/01/23 10:17 BP 134/78 12/01/23 10:17 Pulse Ox 98 12/01/23 10:17 Oxygen Delivery Method Room Air 12/01/23 10:17 BMI result Body Mass Index 28.0 Tobacco/Smoking Status: Tobacco use Status Tobacco use date assessed 12/01/23 12/01/23 10:25 Patient Tobacco Use Status Former Tobacco user 12/01/23 10:20 e-Cigarette/Vaping Use Never Used 12/01/23 10:20 PHQ-9: PHQ-9 Score PHQ-9: Total score 0 02/28/24 10:25 Depression Screening Interpretation: Negative Thrive Assessment: Date of Thrive Assessment Date Thrive assessed 12/01/23 12/01/23 10:25 Currently or been in a relationship where the following occur: no concerns reported Const General: no acute distress Eyes General: appearance normal, both eyes and all related structures Resp Effort & Inspection: normal respiratory effort Auscultation: clear to auscultation bilaterally Cardio Rhythm: regular rhythm Heart sounds: S1 normal heart sound present and S2 normal heart sound present GI Inspection: Yes normal to inspection Palpation (GI): Soft to palpation Percussion: Yes normal to percussion Auscultation: normal bowel sounds Assessment and Plan Assessment & Plan (1) Hyperlipidemia: Comment: Atorvastatin myalgia Code(s): E78.5 - Hyperlipidemia, unspecified Plan: Continue Crestor return for fasting blood work (2) DM type 2 (diabetes mellitus, type 2): Comment: A1C>14% 09/2021 / 5.7% on 02/13/23 Code(s): E11.9 - Type 2 diabetes mellitus without complications Plan: ADA diet regular physical activity continue medications discussed with the patient (3) HTN (hypertension): Code(s): I10 - Essential (primary) hypertension Plan: Continue current medications follow-up in 4 months Orders: Orders Lipid Panel Today E11.9 - Type 2 diabetes mellitus without complications, E78.5 - Hyperlipidemia, unspecified, I10 - Essential (primary) hypertension Hemoglobin A1c Today E11.9 - Type 2 diabetes mellitus without complications, E78.5 - Hyperlipidemia, unspecified, I10 - Essential (primary) hypertension Comprehensive [place]. Panel Fast 4 Months E11.9 - Type 2 diabetes mellitus without complications, E78.5 - Hyperlipidemia, unspecified, I10 - Essential (primary) hypertension Lipid Panel 4 Months E11.9 - Type 2 diabetes mellitus without complications, E78.5 - Hyperlipidemia, unspecified, I10 - Essential (primary) hypertension Microalbumin, Random (w Creat) 4 Months E11.9 - Type 2 diabetes mellitus without complications, E78.5 - Hyperlipidemia, unspecified, I10 - Essential (primary) hypertension Comprehensive [place]. Panel Fast Today E11.9 - Type 2 diabetes mellitus without complications, E78.5 - Hyperlipidemia, unspecified, I10 - Essential (primary) hypertension Hemoglobin A1c 4 Months E11.9 - Type 2 diabetes mellitus without complications, E78.5 - Hyperlipidemia, unspecified, I10 - Essential (primary) hypertension Complete Blood Count Auto Diff 4 Months E11.9 - Type 2 diabetes mellitus without complications, E78.5 - Hyperlipidemia, unspecified, I10 - Essential (primary) hypertension Medications: Refilled amlodipine (Norvasc) 5 mg PO BID 180 tabs 3RF metformin 1,000 mg PO BID 180 tabs 3RF metoprolol tartrate 75 mg (1.5 x 50 mg) PO Q12H 135 tabs 3RF empagliflozin (Jardiance) 25 mg PO DAILY 90 tabs 3RF olmesartan 40 mg PO DAILY 90 tabs 3RF Discontinued atorvastatin Discontinued Reason: Doctor's Order 40 mg PO BEDTIME 90 tabs 3RF Coding Level of Care Code Est Pt Level 4 (55526) Diagnoses Hyperlipidemia E78.5 DM type 2 (diabetes mellitus, type 2) E11.9 HTN (hypertension) I10
[2023-12-01 10:17] VITALS: BP 134/78; PULSE 78; O2SAT 98; BMI 28.0
== END 2023-12-01 10:48 | disposition home or self-care (01) ==
PROVIDERS: PCP Internal Medicine; Visit Provider Internal Medicine
DX: E78.5 Hyperlipidemia, unspecified (principal); E11.9 Type 2 diabetes mellitus without complications; I10 Essential (primary) hypertension
CPT/HCPCS: 99214

== ENCOUNTER 2023-12-11 07:56 | Outpatient (REF) | payer BC, SELFPAY ==
[2023-12-11 12:00] LABS: Estimated Average Glucose 111 mg/dL; Hemoglobin A1c % 5.5 % (<6.0)
[2023-12-11 12:16] LABS: Alanine Aminotransferase 24 U/L (0-31); Albumin Level 4.6 g/dL (3.5-5.0); Alkaline Phosphatase 47 U/L (39-117); Anion Gap 12 (12-20); Aspartate Amino Transferase 18 U/L (5-31); Bilirubin Total 0.6 mg/dL (0.0-1.0); Blood Urea Nitrogen 11 mg/dL (9-16); Calcium 9.6 mg/dL (8.4-10.2); Carbon Dioxide 27 mmol/L (22-29); Chloride 107 mmol/L (96-108); Cholesterol 162 mg/dL (<200); Estimated Glomerular Filt Rate > 60; Glucose Fasting 97 mg/dL (60-99); HDL Cholesterol 54 mg/dL (>40); LDL Cholesterol Calculated 88 mg/dL (<100); Potassium 4.5 mmol/L (3.3-5.1); Sodium 141 mmol/L (135-145); Total Protein 7.4 g/dL (6.5-8.0); Triglycerides 101 mg/dL (<150)
== END 2023-12-11 07:57 | disposition home or self-care (01) ==
LOC: HO.HMGCLDS 07:56
PROVIDERS: PCP Internal Medicine; Visit Provider Internal Medicine
DX: E78.5 Hyperlipidemia, unspecified (principal); E11.9 Type 2 diabetes mellitus without complications; I10 Essential (primary) hypertension
CPT/HCPCS: 36415; 80053; 80061; 83036

== ENCOUNTER 2024-03-04 06:59 | Outpatient (REF) | payer BC, SELFPAY ==
[2024-03-04 11:51] LABS: Basophils Absolute Auto 0.1 X10*3/uL (0.0-0.2); Basophils Percent Auto 0.7 % (0-2); Eosinophils Absolute Auto 0.2 X10*3/uL (0.0-0.4); Eosinophils Percent Auto 1.7 % (0-4); Hematocrit 46.3 % (37.0-47.0); Hemoglobin 15.1 g/dl (12.0-16.0); Imm Gran Abs Auto 0.02 X10*3/uL (0.00-0.03); Imm Gran Pct Auto 0.2 % (0.0-0.4); Lymphocytes Absolute Auto 2.3 X10*3/uL (1.2-4.9); Lymphocytes Percent Auto 26.3 % (20-40); MANUAL DIFF FLAG NO; Mean Corpuscular HGB Conc 32.6 g/dl (31.0-35.0); Mean Corpuscular Hemoglobin 28.3 pg (27.0-33.0); Mean Corpuscular Volume 86.7 fL (80.0-98.0); Mean Platelet Volume 9.2 fL (9.4-12.3); Monocytes Absolute Auto 0.6 X10*3/uL (0.1-1.2); Monocytes Percent Auto 7.3 % (2-11); Neutrophils Absolute Auto 5.6 x10*3/uL (2.0-8.3); Neutrophils Percent Auto 63.8 % (45-73); Platelet Count 359 X10*3/uL (160-400); Red Blood Count 5.34 X10*6/uL (4.20-5.50); Red Cell Distribution Width 14.3 % (11.0-16.0); White Blood Count 8.7 X10*3/uL (4.8-10.8)
[2024-03-04 12:08] LABS: Estimated Average Glucose 117 mg/dL; Hemoglobin A1c % 5.7 % (<6.0)
[2024-03-04 12:16] LABS: Alanine Aminotransferase 18 U/L (0-31); Albumin Level 4.6 g/dL (3.5-5.0); Alkaline Phosphatase 49 U/L (39-117); Anion Gap 14 (12-20); Aspartate Amino Transferase 18 U/L (5-31); Bilirubin Total 0.7 mg/dL (0.0-1.0); Blood Urea Nitrogen 14 mg/dL (9-16); Calcium 10.2 mg/dL (8.4-10.2); Carbon Dioxide 27 mmol/L (22-29); Chloride 104 mmol/L (96-108); Cholesterol 176 mg/dL (<200); Estimated Glomerular Filt Rate > 60; Glucose Fasting 96 mg/dL (60-99); HDL Cholesterol 57 mg/dL (>40); LDL Cholesterol Calculated 101 mg/dL (<100); Potassium 4.5 mmol/L (3.3-5.1); Sodium 140 mmol/L (135-145); Total Protein 7.7 g/dL (6.5-8.0); Triglycerides 92 mg/dL (<150)
[2024-03-04 13:38] LABS: Creatinine Urine 109.29 mg/dL; Microalbum/Creatinine Ratio Ur 11.8 ug/mg cr (<30)
== END 2024-03-04 07:00 | disposition home or self-care (01) ==
LOC: HO.HMGCLDS 06:59
PROVIDERS: PCP Internal Medicine; Visit Provider Internal Medicine
DX: I10 Essential (primary) hypertension (principal); E78.5 Hyperlipidemia, unspecified; E11.9 Type 2 diabetes mellitus without complications
CPT/HCPCS: 36415; 80053; 80061; 82043; 82570; 83036; 85025

== ENCOUNTER 2024-03-08 10:11 | Outpatient (AMB) | payer BC, SELFPAY ==
--- NOTE | 2024-03-08 10:14 | A.OFFPC_ITS ---
Vital Signs 03/08/24 10:16 Height 5 ft 2 in Weight 151 lb BMI 27.6 BP 128/82 Blood Pressure Location Lt brachial Position Sitting Pulse 82 Pulse Source Pulse Oximeter Pulse Oximetry (%) 98 Oxygen Delivery Method Room Air Intake Visit Reasons: 4 month follow up Intake Note: Pt is here today for 4 months follow up visit. Allergies atorvastatin Adverse Reaction (Intermediate, Verified 03/08/24 10:18) Muscle Pain Medication List - Last Reconciled 03/08/24 by Judy Pierre MD amlodipine (Norvasc) 5 mg PO BID ascorbic acid (vitamin C) (Vitamin C) 500 mg PO DAILY blood sugar diagnostic ([employer] SolutionsTouch Ultra Test strips) tid blood-glucose meter ([employer] Ultra2 Meter kit) As directed blood-glucose meter ([employer] Ultra2 Meter) As directed empagliflozin (Jardiance) 25 mg PO DAILY hydrocortisone 2.5% (Proctosol HC) 1 appl [place] BID-QID PRN lancets ([employer] SolutionsTouch UltraSoft Lancets) tid metformin 1,000 mg PO BID metoprolol tartrate 75 mg (1.5 x 50 mg) PO Q12H multivitamin 1 tab PO DAILY olmesartan 40 mg PO DAILY OneTouch Delica Plus Lancet (lancets) Test blood sugar once a day NS rosuvastatin (Crestor) 20 mg PO DAILY Tobacco use date assessed: 12/01/23 Dental Screening Dental Screen Date: 12/01/23 HPI 4 month follow up HPI Details Pt presents for f/u HTN, hyperlipid, type 2 diabetes stable on current medications PFSH Medical History HUTCHINSON (dyspnea on exertion) Hyperlipidemia DM type 2 (diabetes mellitus, type 2) COVID-19 HTN (hypertension) Hypertension Surgical History H/O colonoscopy Family History Mother Arrhythmia Father Diabetes Maternal Grandmother Cancer Social History Household Members: Spouse Housing: House Do you presently have visiting nurse or other home services: No Patient Tobacco Use Status: Former Tobacco user e-Cigarette/Vaping Use: Never Used service: No Current occupational status: employed Cognitive needs: No Hearing needs: No Vision needs: No Questionnaire Thrive Questionnaire Date Thrive assessed: 12/01/23 ROYCE-7 AMB Questionnaire ROYCE-7 Date ROYEC - 7 assessed: 12/01/23 Source: Developed by Drs. Balbir Marcelino, Helen Vyas, Mike David and colleagues, with an educational barbie from [employer]. Review of Systems Const All systems reviewed & are unremarkable except as noted in HPI and below ENT Reports no additional complaints Card Reports no additional complaints Resp Reports no additional complaints GI Reports no additional complaints Reports no additional complaints Physical exam (Primary Care) Vital Signs: Last Vital Signs Pulse 82 03/08/24 10:16 BP 128/82 03/08/24 10:16 Pulse Ox 98 03/08/24 10:16 Oxygen Delivery Method Room Air 03/08/24 10:16 BMI result Body Mass Index 27.6 Tobacco/Smoking Status: Tobacco use Status Tobacco use date assessed 12/01/23 03/08/24 10:19 Patient Tobacco Use Status Former Tobacco user 03/08/24 10:19 e-Cigarette/Vaping Use Never Used 03/08/24 10:19 Thrive Assessment: Date of Thrive Assessment Date Thrive assessed 12/01/23 03/08/24 10:19 Const General: no acute distress Eyes General: appearance normal, both eyes and all related structures Neck Neck: Yes supple Resp Effort & Inspection: normal respiratory effort Auscultation: clear to auscultation bilaterally Cardio Rhythm: regular rhythm Heart sounds: S1 normal heart sound present and S2 normal heart sound present GI Inspection: Yes normal to inspection Palpation (GI): Soft to palpation Assessment and Plan Assessment & Plan (1) DM type 2 (diabetes mellitus, type 2): Comment: A1C>14% 09/2021 / 5.7% on 02/13/23 Code(s): E11.9 - Type 2 diabetes mellitus without complications Plan: A1c is 5.7, continue ADA diet regular exercise current medications return in 6 months with a fasting labs before (2) HTN (hypertension): Code(s): I10 - Essential (primary) hypertension Plan: Continue current medications (3) Hyperlipidemia: Comment: Atorvastatin myalgia Code(s): E78.5 - Hyperlipidemia, unspecified Plan: Continue statin Orders: Orders Complete Blood Count Auto Diff 6 Months E11.9 - Type 2 diabetes mellitus without complications, E78.5 - Hyperlipidemia, unspecified, I10 - Essential (primary) hypertension Lipid Panel 6 Months E11.9 - Type 2 diabetes mellitus without complications, E78.5 - Hyperlipidemia, unspecified, I10 - Essential (primary) hypertension Comprehensive [place]. Panel Fast 6 Months E11.9 - Type 2 diabetes mellitus without complications, E78.5 - Hyperlipidemia, unspecified, I10 - Essential (primary) hypertension Hemoglobin A1c 6 Months E11.9 - Type 2 diabetes mellitus without complications, E78.5 - Hyperlipidemia, unspecified, I10 - Essential (primary) hypertension Microalbumin, Random (w Creat) 6 Months E11.9 - Type 2 diabetes mellitus without complications, E78.5 - Hyperlipidemia, unspecified, I10 - Essential (primary) hypertension Medications: Refilled rosuvastatin (Crestor) 20 mg PO DAILY 90 tabs 3RF Coding Level of Care Code Est Pt Level 4 (37970) Diagnoses DM type 2 (diabetes mellitus, type 2) E11.9 HTN (hypertension) I10 Hyperlipidemia E78.5
[2024-03-08 10:16] VITALS: BP 128/82; PULSE 82; O2SAT 98; BMI 27.6
== END 2024-03-08 10:57 | disposition home or self-care (01) ==
PROVIDERS: PCP Internal Medicine; Visit Provider Internal Medicine
DX: E11.9 Type 2 diabetes mellitus without complications (principal); I10 Essential (primary) hypertension; E78.5 Hyperlipidemia, unspecified
CPT/HCPCS: 99214

== ENCOUNTER 2024-07-05 11:53 | Outpatient (AMB) | payer BC, SELFPAY ==
--- NOTE | 2024-07-05 12:00 | MHC.OFFVIS ---
Vital Signs 07/05/24 12:01 Height 5 ft 2 in Weight 157 lb 13.616 oz BMI 28.9 BP 142/74 H Blood Pressure Location Lt brachial Position Sitting Pulse 88 Pulse Source Pulse Oximeter Pulse Oximetry (%) 97 Oxygen Delivery Method Room Air Intake Visit Reasons: 1 yr follow up Intake Note: Judy presents in office today for a scheduled 4 mos FUV CC; Pt reports that they have been doing well since their last visit. Pt denies any new sx or concerns at this time. 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 Patient was found to have a 1 small tubular adenoma without high-grade dysplasia or carcinoma. Will repeat colorectal screening 7 years, sooner if clinically necessary. Patient does report occasional discomfort with hemorrhoids. Will send her script for Proctosol. Patient was also encouraged to do Sitz baths, increase fiber in her diet, drinking plenty fluids. Increase activity to promote better bowel motility. Patient will follow-up in the office in 1 year, sooner on as needed basis. Patient is agreeable to this plan and verbalizes understanding of instructions. She was given the opportunity to ask questions and all questions answered. ? Thank you for allowing me to participate in her care Medications New hydrocortisone 2.5% (Proctosol HC) [address] BID-QID PRN 30 grams 2RF hemorrhoids K64.9 TODAY'S VISIT Patient is here today for follow-up. Patient reports that she has been feeling well. Since diagnosed with diabetes patient has changed a lot with her diet. Patient is avoiding carbs. Exercising daily. States that she has been feeling well. Patient is able to move her bowels without any issues. Denies any melena, hematochezia, unintentional weight loss or ribbon like stools. Denies any dyspepsia, dysphagia or odynophagia. [facility] Medical History HUTCHINSON (dyspnea on exertion) Hyperlipidemia DM type 2 (diabetes mellitus, type 2) COVID-19 HTN (hypertension) Hypertension Surgical History H/O colonoscopy Family History Mother Arrhythmia Father Diabetes Maternal Grandmother Cancer Social History Household Members: Spouse Housing: House Do you presently have visiting nurse or other home services: No Patient Tobacco Use Status: Former Tobacco user e-Cigarette/Vaping Use: Never Used service: No Current occupational status: employed Cognitive needs: No Hearing needs: No Vision needs: No Review of Systems Const Denies weight gain and Denies weight loss Card Reports no additional complaints Resp Reports no additional complaints GI Denies abdominal pain, Denies belching, Denies melena, Denies bloating, Denies change in bowel habits, Denies excessive flatus, Denies dyspepsia, Denies heartburn, Denies diarrhea, Denies loose stools, Denies nausea and Denies vomiting Musc Reports no additional complaints Neuro Reports no additional complaints Psych Reports no additional complaints Endo Reports no additional complaints Physical Exam Vital Signs: Last Vital Signs Pulse 88 07/05/24 12:01 BP 142/74 H 07/05/24 12:01 Pulse Ox 97 07/05/24 12:01 Oxygen Delivery Method Room Air 07/05/24 12:01 BMI result Body Mass Index 28.9 Const General: healthy appearing, no acute distress and well developed Nutritional Appearance: well nourished Orientation/consciousness: patient oriented x3 Resp Effort & Inspection: normal respiratory effort, able to speak in complete sentences, no tracheal deviation and symmetric chest movement Auscultation: clear to auscultation bilaterally Cardio Rate: regular rate GI Inspection: Yes normal to inspection and No distended Palpation (GI): Soft to palpation, not firm, nontender and No hepatosplenomegaly present Auscultation: normal bowel sounds General: Yes no CVA tenderness Back/Spine/Pelvis Back: no CVA tenderness Skin General skin exam: elasticity normal, turgor normal and dry skin Neuro General: patient oriented x3 Psych Appearance: grossly normal Mental Status: mental status grossly normal Assessment & Plan Assessment & Plan (1) Hemorrhoids without complication: Code(s): K64.9 - Unspecified hemorrhoids Plan Patient will follow-up on as needed basis. Colonoscopy not till 2029. Patient will call us if she will have any GI concerning symptoms. Patient is agreeable to this plan and verbalizes understanding of instructions she was given the opportunity to ask questions and all questions answered. Coding Level of Care Code Est Pt Level 3 (15263) Diagnoses Hemorrhoids without complication K64.9 Time Spent (min) 25 Comment 15 minutes spent with patient and additional 10 minutes spent reviewing her records
[2024-07-05 12:01] VITALS: BP 142/74; PULSE 88; O2SAT 97; BMI 28.9
== END 2024-07-05 13:18 | disposition home or self-care (01) ==
PROVIDERS: PCP Internal Medicine; Visit Provider Nurse Practitioner Family
DX: K64.9 Unspecified hemorrhoids (principal)
CPT/HCPCS: 99213

== ENCOUNTER → 2024-07-05 11:53 | Outpatient (BNVA) | payer BC, SELFPAY | PROVIDERS: PCP Internal Medicine; Visit Provider Nurse Practitioner Family ==

== ENCOUNTER 2024-09-02 06:49 | Outpatient (REF) | payer BC, SELFPAY ==
[2024-09-02 11:13] LABS: MANUAL DIFF FLAG NO
[2024-09-02 11:22] LABS: Basophils Absolute Auto 0.1 X10*3/uL (0.0-0.2); Basophils Percent Auto 1.4 % (0-2); Eosinophils Absolute Auto 0.2 X10*3/uL (0.0-0.4); Eosinophils Percent Auto 2.8 % (0-4); Hematocrit 45.5 % (37.0-47.0); Hemoglobin 14.8 g/dl (12.0-16.0); Imm Gran Abs Auto 0.01 X10*3/uL (0.00-0.03); Imm Gran Pct Auto 0.2 % (0.0-0.4); Lymphocytes Absolute Auto 1.7 X10*3/uL (1.2-4.9); Mean Corpuscular HGB Conc 32.5 g/dl (31.0-35.0); Mean Corpuscular Volume 86.2 fL (80.0-98.0); Mean Platelet Volume 9.5 fL (9.4-12.3); Monocytes Absolute Auto 0.4 X10*3/uL (0.1-1.2); Monocytes Percent Auto 6.4 % (2-11); Neutrophils Absolute Auto 3.4 x10*3/uL (2.0-8.3); Neutrophils Percent Auto 59.2 % (45-73); Platelet Count 326 X10*3/uL (160-400); Red Blood Count 5.28 X10*6/uL (4.20-5.50); Red Cell Distribution Width 14.2 % (11.0-16.0); White Blood Count 5.8 X10*3/uL (4.8-10.8)
[2024-09-02 11:24] LABS: Estimated Average Glucose 120 mg/dL; Hemoglobin A1C 151.4336 umol/L; Hemoglobin A1c % 5.8 % (<6.0); Total Hemoglobin (HGBA1C) 3793.5609 umol/L
[2024-09-02 11:32] LABS: Alanine Aminotransferase 25 U/L (0-31); Albumin Level 4.4 g/dL (3.5-5.0); Alkaline Phosphatase 46 U/L (39-117); Anion Gap 13 (12-20); Aspartate Amino Transferase 21 U/L (5-31); Bilirubin Total 0.4 mg/dL (0.0-1.0); Blood Urea Nitrogen 13 mg/dL (9-16); Calcium 9.1 mg/dL (8.4-10.2); Carbon Dioxide 23 mmol/L (22-29); Chloride 108 mmol/L (96-108); Cholesterol 185 mg/dL (<200); Estimated Glomerular Filt Rate > 60; Glucose Fasting 91 mg/dL (60-99); HDL Cholesterol 47 mg/dL (>40); LDL Cholesterol Calculated 115 mg/dL (<100); Potassium 4.1 mmol/L (3.3-5.1); Sodium 140 mmol/L (135-145); Total Protein 7.3 g/dL (6.5-8.0); Triglycerides 116 mg/dL (<150)
[2024-09-02 11:33] LABS: Creatinine Urine 74.68 mg/dL; Microalbum/Creatinine Ratio Ur 14.7 ug/mg cr (<30)
== END 2024-09-02 06:50 | disposition home or self-care (01) ==
LOC: HO.HMGCLDS 06:49
PROVIDERS: PCP Internal Medicine; Visit Provider Internal Medicine
DX: E11.9 Type 2 diabetes mellitus without complications (principal); I10 Essential (primary) hypertension; E78.5 Hyperlipidemia, unspecified
CPT/HCPCS: 36415; 80053; 80061; 82043; 82570; 83036; 85025

== ENCOUNTER 2024-09-05 07:27 | Outpatient (REF) | payer BC, SELFPAY ==
[2024-09-06 11:55] LABS: HPV 16,18/45 See PAP report
== END 2024-09-05 07:28 | disposition home or self-care (01) ==
LOC: HO.LNP 07:27
PROVIDERS: PCP Internal Medicine; Visit Provider Internal Medicine
DX: Z00.00 Encounter for general adult medical examination without abnormal findings (principal); R87.811 Vaginal high risk human papillomavirus (HPV) DNA test positive; E78.5 Hyperlipidemia, unspecified; E11.9 Type 2 diabetes mellitus without complications; I10 Essential (primary) hypertension
CPT/HCPCS: 87624; 88175; 96127

== ENCOUNTER 2024-09-05 07:27 | Outpatient (AMB) | payer BC, SELFPAY ==
--- NOTE | 2024-09-05 07:46 | A.OFFPC_ITS ---
Vital Signs 09/05/24 07:47 Height 5 ft 2 in Weight 157 lb BMI 28.7 BP 130/82 Blood Pressure Location Lt brachial Position Sitting Pulse 69 Pulse Source Pulse Oximeter Pulse Oximetry (%) 98 Oxygen Delivery Method Room Air Intake Visit Reasons: Annual PE Intake Note: Pt is here today for her PE Allergies atorvastatin Adverse Reaction (Intermediate, Verified 09/05/24 07:47) Muscle Pain Medication List - Last Reconciled 09/05/24 by Judy Pierre MD amlodipine (Norvasc) 5 mg PO BID ascorbic acid (vitamin C) (Vitamin C) 500 mg PO DAILY blood sugar diagnostic ([employer] Ultra Test strips) tid blood-glucose meter ([employer] Ultra2 Meter kit) As directed blood-glucose meter ([employer] Ultra2 Meter) As directed empagliflozin (Jardiance) 25 mg PO DAILY hydrocortisone 2.5% (Proctosol HC) 1 appl [place] BID-QID PRN lancets ([employer] UltraSoft Lancets) tid metformin 1,000 mg PO BID metoprolol tartrate 75 mg (1.5 x 50 mg) PO Q12H multivitamin 1 tab PO DAILY olmesartan 40 mg PO DAILY OneTouch Delica Plus Lancet (lancets) Test blood sugar once a day NS rosuvastatin (Crestor) 20 mg PO DAILY Tobacco use date assessed: 09/05/24 Dental Screening Dental Screen Date: 09/05/24 Did you have a dental visit in the last 12 months?: Yes Did you have a dental problem in the last 6 months where you did not have access to dental care?: No Was dental information given to patient?: Patient has dentist HPI Annual PE HPI Details Pt presents for PE. PFSH Medical History HUTCHINSON (dyspnea on exertion) Hyperlipidemia DM type 2 (diabetes mellitus, type 2) COVID-19 HTN (hypertension) Hypertension Surgical History H/O colonoscopy Family History Mother Arrhythmia Father Diabetes Maternal Grandmother Cancer Social History Household Members: Spouse Housing: House Do you presently have visiting nurse or other home services: No Patient Tobacco Use Status: Former Tobacco user e-Cigarette/Vaping Use: Never Used service: No Current occupational status: employed Cognitive needs: No Hearing needs: No Vision needs: Yes Questionnaire PHQ-9 Over the last 2 weeks, how often have you been bothered by any of the following problems? 1. Little interest or pleasure in doing things: not at all 2. Feeling down, depressed, or hopeless: not at all 3. Trouble falling or staying asleep, or sleeping too much: not at all 4. Feeling tired or having little energy: not at all 5. Poor appetite or overeating: not at all 6. Feeling bad about yourself - or that you are a failure or have let yourself or your family down: not at all 7. Trouble concentrating on things, such as reading the newspaper or watching television: not at all 8. Moving or speaking so slowly that other people could have noticed. Or the opposite - being so fidgety or restless that you have been moving around a lot more than usual: not at all 9. Thoughts that you would be better off or of hurting yourself in some way: not at all Total score: 0 Depression Screening Interpretation: Negative Depression Screening Done: Yes 66681 - PHQ-9 Billing: Yes Source: Developed by Drs. Balbir Marcelino, Helen Vyas, Mike David and colleagues, with an educational barbie from [employer]. Thrive Questionnaire Date Thrive assessed: 12/01/23 I am a: Patient What is your living situation today?: I have a steady place to live Within the past 12 months, did the food you bought not last and you didn't have the money to get more?: I choose not to answer this question Within the past 12 months, did you worry whether your food would run out before you got money to buy more?: I choose not to answer this question Do you have trouble paying for medicines?: No Do you have trouble getting transportation to medical appointments?: No Do you have trouble paying your heating and electricity bill?: No Do you have trouble taking care of your child, family member or friend?: No Do you have trouble with day-to-day activities such as bathing, preparing meals, shopping, managing finances, etc.?: No Are you currently unemployed and looking for a job?: No Are you interested in more education?: No Please select the resources that you would like help with: None Currently or been in a relationship where the following occur: I choose not to answer THRIVE Score: 0 AUDIT C Alcohol Use Questionnaire (AUDIT-C) 1. How often do you have a drink containing alcohol?: Never 3. How often do you have six or more drinks on one occasion?: Never Total Score: 0 ROYCE-7 AMB Questionnaire ROYCE-7 Date ROYCE - 7 assessed: 12/01/23 Feeling nervous, anxious, or on edge: 0 = Not at all Not being able to stop or control worryin = Not at all Worrying too much about different things: 0 = Not at all Trouble relaxin = Not at all Being so restless that it is hard to sit still: 0 = Not at all Becoming easily annoyed or irritable: 0 = Not at all Feeling afraid as if something awful might happen: 0 = Not at all Total ROYCE-7 score (0-4 normal; 5-9 mild; 10-14 moderate; 15-21 severe): 0 Source: Developed by Drs. Balbir Marcelino, Helen Vyas, Mike David and colleagues, with an educational barbie from [employer]. Review of Systems Const All systems reviewed & are unremarkable except as noted in HPI and below Eyes Reports no additional complaints ENT Reports no additional complaints Card Reports no additional complaints Resp Reports no additional complaints GI Reports no additional complaints Reports no additional complaints Physical exam (Primary Care) Vital Signs: Last Vital Signs Pulse 69 09/05/24 07:47 BP 130/92 H 09/05/24 07:47 Pulse Ox 98 09/05/24 07:47 Oxygen Delivery Method Room Air 09/05/24 07:47 BMI result Body Mass Index 28.7 Tobacco/Smoking Status: Tobacco use Status Tobacco use date assessed 09/05/24 09/05/24 07:51 Patient Tobacco Use Status Former Tobacco user 09/05/24 07:47 e-Cigarette/Vaping Use Never Used 09/05/24 07:47 Depression Screening Interpretation: Negative Thrive Assessment: Date of Thrive Assessment Date Thrive assessed 02/28/24 12/03/24 07:47 Currently or been in a relationship where the following occur: I choose not to answer Const General: no acute distress HENMT Head: Yes normal to inspection Ears: hearing grossly normal bilaterally General nose exam: Normal external nose present Face and sinus: Yes normal facial exam Mouth: Normal oral and palatal mucosa present Throat: Yes posterior oropharynx normal Eyes General: appearance normal, both eyes and all related structures Neck Neck: Yes no lymphadenopathy and Yes supple Chest Breast/axilla inspection: normal inspection of the breasts Breast/axilla palpation: normal palpation of the breasts and no axillary lymphadenopathy Resp Effort & Inspection: normal respiratory effort Auscultation: clear to auscultation bilaterally Cardio Rhythm: regular rhythm Heart sounds: S1 normal heart sound present and S2 normal heart sound present GI Inspection: Yes normal to inspection Palpation (GI): Soft to palpation Percussion: Yes normal to percussion Auscultation: normal bowel sounds Speculum Exam - Vagina: normal appearance of the vagina Speculum Exam - Cervix: normal appearance of the cervix Bimanual exam- vagina & uterus: normal bimanual exam Bimanual Exam- Adnexa, other: normal adnexae Coding Level of Care Code Est Pt Prev Care 40-64y(74973) Diagnoses Mammogram declined Z53.20 Vaginal high risk HPV DNA test positive R87.811 Annual physical exam Z00.00 Hyperlipidemia E78.5 DM type 2 (diabetes mellitus, type 2) E11.9 HTN (hypertension) I10 Additional Codes PHQ-9 - 12050 - PHQ-9 Billing: Yes ([id number]) Assessment & Plan Assessment & Plan (1) Mammogram declined: Comment: 08/26, 09/26 Code(s): Z53.20 - Procedure and treatment not carried out because of patient's decision for unspecified reasons Category: Medical Plan: declined (2) Vaginal high risk HPV DNA test positive: Comment: nl Pap and +HPV 05/26, repeat in 1 year Code(s): R87.811 - Vaginal high risk human papillomavirus (HPV) DNA test positive Category: Medical Plan: pap done (3) Annual physical exam: Code(s): Z00.00 - Encounter for general adult medical examination without abnormal findings Category: Medical Plan: well balanced diet regular exercise discussed with the patient (4) Hyperlipidemia: Comment: Atorvastatin myalgia Code(s): E78.5 - Hyperlipidemia, unspecified Category: Medical Plan: cont statin (5) DM type 2 (diabetes mellitus, type 2): Comment: A1C>14% 09/2021 / 5.7% on 02/13/23 Code(s): E11.9 - Type 2 diabetes mellitus without complications Category: Medical Plan: A1C is 5.8, ADA diet regular exercise discussed with the patient continue current medications follow-up in 3 months with a fasting labs before (6) HTN (hypertension): Code(s): I10 - Essential (primary) hypertension Category: Medical Plan: Continue current medication low-sodium diet regular exercise discussed with the patient Orders: Orders Comprehensive [place]. Panel Fast 3 Months E11.9 - Type 2 diabetes mellitus without complications, E78.5 - Hyperlipidemia, unspecified, I10 - Essential (primary) hypertension Hemoglobin A1c 3 Months E11.9 - Type 2 diabetes mellitus without complications, E78.5 - Hyperlipidemia, unspecified, I10 - Essential (primary) hypertension Complete Blood Count Auto Diff 3 Months E11.9 - Type 2 diabetes mellitus without complications, E78.5 - Hyperlipidemia, unspecified, I10 - Essential (primary) hypertension Microalbumin, Random (w Creat) 3 Months E11.9 - Type 2 diabetes mellitus without complications, E78.5 - Hyperlipidemia, unspecified, I10 - Essential (primary) hypertension Pap Smear Today R87.811 - Vaginal high risk human papillomavirus (HPV) DNA test positive Lipid Panel 3 Months E11.9 - Type 2 diabetes mellitus without complications, E78.5 - Hyperlipidemia, unspecified, I10 - Essential (primary) hypertension TSH reflex Free T4 3 Months E11.9 - Type 2 diabetes mellitus without complications, E78.5 - Hyperlipidemia, unspecified, I10 - Essential (primary) hypertension Medications: Refilled metoprolol tartrate 75 mg (1.5 x 50 mg) PO Q12H 135 tabs 3RF metformin 1,000 mg PO BID 180 tabs 3RF empagliflozin (Jardiance) 25 mg PO DAILY 90 tabs 3RF amlodipine (Norvasc) 5 mg PO BID 180 tabs 3RF olmesartan 40 mg PO DAILY 90 tabs 3RF rosuvastatin (Crestor) 20 mg PO DAILY 90 tabs 3RF blood sugar diagnostic ([employer] Ultra Test strips) tid 100 ea 4RF
[2024-09-05 07:47] VITALS: BP 130/82; PULSE 69; O2SAT 98; BMI 28.7
== END 2024-09-05 08:49 | disposition home or self-care (01) ==
PROVIDERS: PCP Internal Medicine; Visit Provider Internal Medicine
DX: Z00.00 Encounter for general adult medical examination without abnormal findings (principal); E11.69 Type 2 diabetes mellitus with other specified complication; Z53.20 Procedure and treatment not carried out because of patient's decision for unspecified reasons; R87.811 Vaginal high risk human papillomavirus (HPV) DNA test positive; E78.5 Hyperlipidemia, unspecified; I10 Essential (primary) hypertension

== ENCOUNTER 2024-11-29 11:42 | Outpatient (AMB) | payer BC, SELFPAY ==
[2024-11-29 12:05] VITALS: BP 134/86; PULSE 88; RESP 20; TEMP 37.2; O2SAT 98; BMI 28.2
--- NOTE | 2024-11-29 12:05 | MHC.PC.OV ---
Vital Signs 11/29/24 12:05 Height 5 ft 2 in Weight 154 lb BMI 28.2 BP 134/86 Blood Pressure Location Lt brachial Position Sitting Respiration 20 Pulse 88 Pulse Source Pulse Oximeter Temp 98.9 F Temp Source Oral Pulse Oximetry (%) 98 Oxygen Delivery Method Room Air Intake Visit Reasons: Cough, chest congestion Intake Note: Pt is here today for a sick visit. Pt c/o coughing fits and chest congestion and heaviness for 2 weeks now. Pt states that she had a cold 2 weeks ago. Allergies atorvastatin Adverse Reaction (Intermediate, Verified 11/29/24 12:23) Muscle Pain Tobacco use date assessed: 11/29/24 Dental Screening Dental Screen Date: 11/29/24 Did you have a dental visit in the last 12 months?: Yes Did you have a dental problem in the last 6 months where you did not have access to dental care?: No Was dental information given to patient?: Patient has dentist HPI Cough, chest congestion HPI Details PATIENT COMPLAINS OF RESIDUAL COUGH POSTNASAL DRIP AND CHEST CONGESTION SINCE UPPER RESPIRATORY INFECTION 2 WEEKS AGO. Patient denies fever chills night sweats pleurisy sputum production. Type 2 diabetes is controlled on current medications PFSH Medical History HUTCHINSON (dyspnea on exertion) Hyperlipidemia DM type 2 (diabetes mellitus, type 2) COVID-19 HTN (hypertension) Hypertension Surgical History H/O colonoscopy Family History Mother Arrhythmia Father Diabetes Maternal Grandmother Cancer Social History Household Members: Spouse Housing: House Do you presently have visiting nurse or other home services: No Patient Tobacco Use Status: Former Tobacco user e-Cigarette/Vaping Use: Never Used service: No Current occupational status: employed Cognitive needs: No Hearing needs: No Vision needs: Yes Questionnaire PHQ-9 Over the last 2 weeks, how often have you been bothered by any of the following problems? 1. Little interest or pleasure in doing things: not at all 2. Feeling down, depressed, or hopeless: not at all 3. Trouble falling or staying asleep, or sleeping too much: not at all 4. Feeling tired or having little energy: not at all 5. Poor appetite or overeating: not at all 6. Feeling bad about yourself - or that you are a failure or have let yourself or your family down: not at all 7. Trouble concentrating on things, such as reading the newspaper or watching television: not at all 8. Moving or speaking so slowly that other people could have noticed. Or the opposite - being so fidgety or restless that you have been moving around a lot more than usual: not at all 9. Thoughts that you would be better off or of hurting yourself in some way: not at all Total score: 0 Depression Screening Interpretation: Negative Depression Screening Done: Yes 70229 - PHQ-9 Billing: Yes Source: Developed by Drs. Balbir Marcelino, Helen Vyas, Mike David and colleagues, with an educational barbie from [employer]. Thrive Questionnaire Date Thrive assessed: 11/29/24 I am a: Patient What is your living situation today?: I have a steady place to live Within the past 12 months, did the food you bought not last and you didn't have the money to get more?: Never true Within the past 12 months, did you worry whether your food would run out before you got money to buy more?: Never true Do you have trouble paying for medicines?: No Do you have trouble getting transportation to medical appointments?: No Do you have trouble paying your heating and electricity bill?: No Do you have trouble taking care of your child, family member or friend?: No Do you have trouble with day-to-day activities such as bathing, preparing meals, shopping, managing finances, etc.?: No Are you currently unemployed and looking for a job?: No Are you interested in more education?: No Please select the resources that you would like help with: None THRIVE Score: 0 ROYCE-7 AMB Questionnaire ROYCE-7 Date ROYCE - 7 assessed: 11/29/24 Feeling nervous, anxious, or on edge: 0 = Not at all Not being able to stop or control worryin = Not at all Worrying too much about different things: 0 = Not at all Trouble relaxin = Not at all Being so restless that it is hard to sit still: 0 = Not at all Becoming easily annoyed or irritable: 0 = Not at all Feeling afraid as if something awful might happen: 0 = Not at all Total ROYCE-7 score (0-4 normal; 5-9 mild; 10-14 moderate; 15-21 severe): 0 Source: Developed by Drs. Balbir Marcelino, Helen Vyas, Mike David and colleagues, with an educational barbie from [employer]. ROYCE-7 Assessment Billing ROYCE-7 Assessment Tool: ROYCE-7 Assessment 40607 Review of Systems Const All systems reviewed & are unremarkable except as noted in HPI and below Eyes Reports no additional complaints ENT Reports no additional complaints Card Reports no additional complaints Resp Reports no additional complaints GI Reports no additional complaints Physical exam (Primary Care) Vital Signs: Last Vital Signs Temp 98.9 F 11/29/24 12:05 Pulse 88 11/29/24 12:05 Resp 20 11/29/24 12:05 BP 134/86 11/29/24 12:05 Pulse Ox 98 11/29/24 12:05 Oxygen Delivery Method Room Air 11/29/24 12:05 BMI result Body Mass Index 28.2 Tobacco/Smoking Status: Tobacco use Status Tobacco use date assessed 11/29/24 11/29/24 12:25 Patient Tobacco Use Status Former Tobacco user 11/29/24 12:06 e-Cigarette/Vaping Use Never Used 11/29/24 12:06 PHQ-9: PHQ-9 Score PHQ-9: Total score 0 11/29/24 12:25 Depression Screening Interpretation: Negative Thrive Assessment: Date of Thrive Assessment Date Thrive assessed 11/29/24 11/29/24 12:06 Const General: no acute distress HENMT Head: Yes normal to inspection Ears: TM's normal bilaterally Face and sinus: Yes normal facial exam and No sinus tenderness Throat: Yes postnasal drainage Eyes General: appearance normal, both eyes and all related structures Neck Neck: Yes supple Resp Effort & Inspection: normal respiratory effort Auscultation: clear to auscultation bilaterally Cardio Rhythm: regular rhythm Heart sounds: S1 normal heart sound present and S2 normal heart sound present Coding Level of Care Code Est Pt Level 3 (07944) Diagnoses Postnasal drip R09.82 DM type 2 (diabetes mellitus, type 2) E11.9 Additional Codes ROYCE-7 Assessment Billing - ROYCE-7 Assessment Tool: ROYCE-7 Assessment 82450 ([id number]) PHQ-9 - 58172 - PHQ-9 Billing: Yes ([id number]) Assessment & Plan Assessment & Plan (1) Postnasal drip: Code(s): R09.82 - Postnasal drip Category: Medical Plan: Patient was advised to try Claritin and add Flonase as needed (2) DM type 2 (diabetes mellitus, type 2): Comment: A1C>14% 09/2021 / 5.7% on 02/13/23 Code(s): E11.9 - Type 2 diabetes mellitus without complications Category: Medical Plan: Continue current medications
== END 2024-11-29 13:05 | disposition home or self-care (01) ==
PROVIDERS: PCP Internal Medicine; Visit Provider Internal Medicine
DX: R09.82 Postnasal drip (principal); E11.9 Type 2 diabetes mellitus without complications

== ENCOUNTER → 2024-11-29 11:42 | Outpatient (BNVA) | payer BC, SELFPAY | PROVIDERS: PCP Internal Medicine; Visit Provider Internal Medicine | DX: R09.82 Postnasal drip (principal); E11.9 Type 2 diabetes mellitus without complications | CPT/HCPCS: 96127 ==

== ENCOUNTER 2024-12-09 06:40 | Outpatient (REF) | payer BC, SELFPAY ==
[2024-12-09 11:53] LABS: MANUAL DIFF FLAG NO
[2024-12-09 12:00] LABS: Basophils Absolute Auto 0.1 X10*3/uL (0.0-0.2); Basophils Percent Auto 1.3 % (0-2); Eosinophils Absolute Auto 0.3 X10*3/uL (0.0-0.4); Eosinophils Percent Auto 3.7 % (0-4); Hematocrit 46.8 % (37.0-47.0); Hemoglobin 15.3 g/dl (12.0-16.0); Imm Gran Abs Auto 0.02 X10*3/uL (0.00-0.03); Imm Gran Pct Auto 0.3 % (0.0-0.4); Lymphocytes Absolute Auto 2.1 X10*3/uL (1.2-4.9); Lymphocytes Percent Auto 30.3 % (20-40); Mean Corpuscular HGB Conc 32.7 g/dl (31.0-35.0); Mean Corpuscular Hemoglobin 27.8 pg (27.0-33.0); Mean Corpuscular Volume 85.1 fL (80.0-98.0); Mean Platelet Volume 9.3 fL (9.4-12.3); Monocytes Absolute Auto 0.6 X10*3/uL (0.1-1.2); Monocytes Percent Auto 8.9 % (2-11); Neutrophils Absolute Auto 3.9 x10*3/uL (2.0-8.3); Neutrophils Percent Auto 55.5 % (45-73); Platelet Count 323 X10*3/uL (160-400); Red Cell Distribution Width 14.4 % (11.0-16.0)
[2024-12-09 12:16] LABS: Estimated Average Glucose 117 mg/dL; Hemoglobin A1c % 5.7 % (<6.0)
[2024-12-09 12:27] LABS: Creatinine Urine 55.83 mg/dL; Microalbum/Creatinine Ratio Ur 10.7 ug/mg cr (<30)
[2024-12-09 12:28] LABS: Alanine Aminotransferase 31 U/L (0-31); Albumin Level 4.6 g/dL (3.5-5.0); Alkaline Phosphatase 51 U/L (39-117); Anion Gap 15 (12-20); Aspartate Amino Transferase 24 U/L (5-31); Bilirubin Total 0.7 mg/dL (0.0-1.0); Blood Urea Nitrogen 12 mg/dL (9-16); Calcium 9.8 mg/dL (8.4-10.2); Carbon Dioxide 23 mmol/L (22-29); Chloride 107 mmol/L (96-108); Cholesterol 160 mg/dL (<200); Estimated Glomerular Filt Rate > 60; Glucose Fasting 95 mg/dL (60-99); HDL Cholesterol 53 mg/dL (>40); LDL Cholesterol Calculated 86 mg/dL (<100); Potassium 4.7 mmol/L (3.3-5.1); Sodium 140 mmol/L (135-145); Total Protein 8.1 g/dL (6.5-8.0); Triglycerides 109 mg/dL (<150)
[2024-12-09 12:37] LABS: TSH reflex Free T4 1.96 uIU/mL (0.32-4.0)
== END 2024-12-09 06:41 | disposition home or self-care (01) ==
LOC: HO.HMGCLDS 06:40
PROVIDERS: PCP Internal Medicine; Visit Provider Internal Medicine
DX: I10 Essential (primary) hypertension (principal); E11.9 Type 2 diabetes mellitus without complications; E78.5 Hyperlipidemia, unspecified
CPT/HCPCS: 36415; 80053; 80061; 82043; 82570; 83036; 84443; 85025

== ENCOUNTER 2024-12-12 09:16 | Outpatient (AMB) | payer BC, SELFPAY ==
[2024-12-12 09:18] VITALS: BP 126/84; PULSE 86; RESP 18; TEMP 37; O2SAT 98; BMI 28.2
--- NOTE | 2024-12-12 09:18 | A.OFFPC_ITS ---
Vital Signs 12/12/24 09:18 Height 5 ft 2 in Weight 154 lb BMI 28.2 BP 126/84 Blood Pressure Location Lt brachial Position Sitting Respiration 18 Pulse 86 Pulse Source Pulse Oximeter Temp 98.6 F Temp Source Oral Pulse Oximetry (%) 98 Oxygen Delivery Method Room Air Intake Visit Reasons: 3 months f/up Intake Note: Pt is here today for 3 months follow up visit on DM. Allergies atorvastatin Adverse Reaction (Intermediate, Verified 11/29/24 12:23) Muscle Pain Medication List - Last Reconciled 12/12/24 by Judy Pierre MD amlodipine (Norvasc) 5 mg PO BID ascorbic acid (vitamin C) (Vitamin C) 500 mg PO DAILY blood sugar diagnostic ([employer] GroupTouch Ultra Test strips) tid blood-glucose meter ([employer] GroupTouch Ultra2 Meter kit) As directed blood-glucose meter ([employer] GroupTouch Ultra2 Meter) As directed empagliflozin (Jardiance) 25 mg PO DAILY hydrocortisone 2.5% (Proctosol HC) 1 appl [place] BID-QID PRN lancets ([employer] GroupTouch UltraSoft Lancets) tid metformin 1,000 mg PO BID metoprolol tartrate 75 mg (1.5 x 50 mg) PO Q12H multivitamin 1 tab PO DAILY olmesartan 40 mg PO DAILY OneTouch Delica Plus Lancet (lancets) Test blood sugar once a day NS rosuvastatin (Crestor) 20 mg PO DAILY Tobacco use date assessed: 12/12/24 Dental Screening Dental Screen Date: 12/12/24 Did you have a dental visit in the last 12 months?: Yes Did you have a dental problem in the last 6 months where you did not have access to dental care?: No Was dental information given to patient?: Patient has dentist HPI 3 months f/up HPI Details Patient presents for the follow-up of type 2 diabetes hypertension hyperlipidemia PFSH Medical History HUTCHINSON (dyspnea on exertion) Hyperlipidemia DM type 2 (diabetes mellitus, type 2) COVID-19 HTN (hypertension) Hypertension Surgical History H/O colonoscopy Family History Mother Arrhythmia Father Diabetes Maternal Grandmother Cancer Social History Household Members: Spouse Housing: House Do you presently have visiting nurse or other home services: No Patient Tobacco Use Status: Former Tobacco user e-Cigarette/Vaping Use: Never Used service: No Current occupational status: employed Cognitive needs: No Hearing needs: No Vision needs: Yes Questionnaire PHQ-9 Over the last 2 weeks, how often have you been bothered by any of the following problems? 9. Thoughts that you would be better off or of hurting yourself in some way: not at all Source: Developed by Drs. Balbir Marcelino, Helen Vyas, Mike David and colleagues, with an educational barbie from [employer] Thrive Questionnaire Date Thrive assessed: 12/12/24 I am a: Patient What is your living situation today?: I choose not to answer this question Within the past 12 months, did the food you bought not last and you didn't have the money to get more?: Never true Within the past 12 months, did you worry whether your food would run out before you got money to buy more?: I choose not to answer this question Do you have trouble paying for medicines?: No Do you have trouble getting transportation to medical appointments?: No Do you have trouble paying your heating and electricity bill?: No Do you have trouble taking care of your child, family member or friend?: No Do you have trouble with day-to-day activities such as bathing, preparing meals, shopping, managing finances, etc.?: No Are you currently unemployed and looking for a job?: No Are you interested in more education?: No Currently or been in a relationship where the following occur: I choose not to answer THRIVE Score: 0 AUDIT C Alcohol Use Questionnaire (AUDIT-C) 1. How often do you have a drink containing alcohol?: Never 3. How often do you have six or more drinks on one occasion?: Never Total Score: 0 ROYCE-7 AMB Questionnaire ROYCE-7 Date ROYCE - 7 assessed: 12/12/24 Feeling nervous, anxious, or on edge: 0 = Not at all Not being able to stop or control worryin = Not at all Worrying too much about different things: 0 = Not at all Trouble relaxin = Not at all Being so restless that it is hard to sit still: 0 = Not at all Becoming easily annoyed or irritable: 0 = Not at all Feeling afraid as if something awful might happen: 0 = Not at all Total ROYCE-7 score (0-4 normal; 5-9 mild; 10-14 moderate; 15-21 severe): 0 Source: Developed by Drs. Balbir Marcelino, Helen Vyas, Mike David and colleagues, with an educational barbie from [employer] Review of Systems ENT Reports no additional complaints Card Reports no additional complaints Resp Reports no additional complaints GI Reports no additional complaints Physical exam (Primary Care) Vital Signs: Last Vital Signs Temp 98.6 F 12/12/24 09:18 Pulse 86 12/12/24 09:18 Resp 18 12/12/24 09:18 BP 126/84 12/12/24 09:18 Pulse Ox 98 12/12/24 09:18 Oxygen Delivery Method Room Air 12/12/24 09:18 BMI result Body Mass Index 28.2 Tobacco/Smoking Status: Tobacco use Status Tobacco use date assessed 12/12/24 12/12/24 09:26 Patient Tobacco Use Status Former Tobacco user 12/12/24 09:18 e-Cigarette/Vaping Use Never Used 12/12/24 09:18 Thrive Assessment: Date of Thrive Assessment Date Thrive assessed 12/12/24 12/12/24 09:18 Currently or been in a relationship where the following occur: I choose not to answer Const General: no acute distress HENMT Head: Yes normal to inspection Ears: hearing grossly normal bilaterally Eyes General: appearance normal, both eyes and all related structures Neck Neck: Yes no lymphadenopathy and Yes supple Resp Effort & Inspection: normal respiratory effort Auscultation: clear to auscultation bilaterally Cardio Rhythm: regular rhythm Heart sounds: S1 normal heart sound present and S2 normal heart sound present GI Inspection: Yes normal to inspection Palpation (GI): Soft to palpation Coding Level of Care Code Est Pt Level 4 (95151) Diagnoses DM type 2 (diabetes mellitus, type 2) E11.9 HTN (hypertension) I10 Hyperlipidemia E78.5 Assessment & Plan Assessment & Plan (1) DM type 2 (diabetes mellitus, type 2): Comment: A1C>14% 09/2021 / 5.7% on 02/13/23 Code(s): E11.9 - Type 2 diabetes mellitus without complications Category: Medical Plan: A1c is 5.7, continue ADA diet regular exercise current medications follow-up in 4 months with a fasting labs before (2) HTN (hypertension): Code(s): I10 - Essential (primary) hypertension Category: Medical Plan: Continue current medications (3) Hyperlipidemia: Comment: Atorvastatin myalgia Code(s): E78.5 - Hyperlipidemia, unspecified Category: Medical Plan: Continue statin Orders: Orders Comprehensive [place]. Panel Fast 4 Months E11.9 - Type 2 diabetes mellitus without complications, E78.5 - Hyperlipidemia, unspecified, I10 - Essential (primary) hypertension Complete Blood Count Auto Diff 4 Months E11.9 - Type 2 diabetes mellitus without complications, E78.5 - Hyperlipidemia, unspecified, I10 - Essential (primary) hypertension Lipid Panel 4 Months E11.9 - Type 2 diabetes mellitus without complications, E78.5 - Hyperlipidemia, unspecified, I10 - Essential (primary) hypertension Hemoglobin A1c 4 Months E11.9 - Type 2 diabetes mellitus without complications, E78.5 - Hyperlipidemia, unspecified, I10 - Essential (primary) hypertension Microalbumin, Random (w Creat) 4 Months E11.9 - Type 2 diabetes mellitus without complications, E78.5 - Hyperlipidemia, unspecified, I10 - Essential (primary) hypertension
== END 2024-12-12 09:58 | disposition home or self-care (01) ==
LOC: HO.HMCC 09:17
PROVIDERS: PCP Internal Medicine; Visit Provider Internal Medicine
DX: E11.9 Type 2 diabetes mellitus without complications (principal); I10 Essential (primary) hypertension; E78.5 Hyperlipidemia, unspecified

== ENCOUNTER 2025-04-18 08:40 | Outpatient (AMB) | payer BC, SELFPAY ==
[2025-04-18 08:43] VITALS: BP 128/84; PULSE 74; RESP 18; TEMP 36.8; O2SAT 97; BMI 28.0
--- NOTE | 2025-04-18 08:43 | MHC.PC.OV ---
Vital Signs 04/18/25 08:43 Height 5 ft 2 in Weight 153 lb BMI 28.0 BP 128/84 Blood Pressure Location Lt brachial Position Sitting Respiration 18 Pulse 74 Pulse Source Pulse Oximeter Temp 98.2 F Temp Source Oral Pulse Oximetry (%) 97 Oxygen Delivery Method Room Air Intake Visit Reasons: L hand swelling Intake Note: Pt is here today for a [facility] visit. Pt c/o L hand swelling and pain for 2 weeks now. Allergies atorvastatin Adverse Reaction (Intermediate, Verified 04/18/25 08:54) Muscle Pain Tobacco use date assessed: 12/12/24 Dental Screening Dental Screen Date: 12/12/24 HPI L hand swelling HPI Details Patient presents complaining of left middle finger MCP joint and dorsal hand swelling and tenderness for 2 weeks. Patient tried naproxen and meloxicam without significant improvement. She uses her hands a lot at work. Patient denies any other joints swelling or pain. Type 2 diabetes and hypertension are controlled on current medications [facility] Medical History HUTCHINSON (dyspnea on exertion) Hyperlipidemia DM type 2 (diabetes mellitus, type 2) COVID-19 HTN (hypertension) Hypertension Surgical History H/O colonoscopy Family History Mother Arrhythmia Father Diabetes Maternal Grandmother Cancer Social History Household Members: Spouse Housing: House Do you presently have visiting nurse or other home services: No Patient Tobacco Use Status: Former Tobacco user e-Cigarette/Vaping Use: Never Used service: No Current occupational status: employed Cognitive needs: No Hearing needs: No Vision needs: Yes Questionnaire Thrive Questionnaire Date Thrive assessed: 12/12/24 I am a: Patient What is your living situation today?: I choose not to answer this question Within the past 12 months, did the food you bought not last and you didn't have the money to get more?: Never true Within the past 12 months, did you worry whether your food would run out before you got money to buy more?: I choose not to answer this question Do you have trouble paying for medicines?: No Do you have trouble getting transportation to medical appointments?: No Do you have trouble paying your heating and electricity bill?: No Do you have trouble taking care of your child, family member or friend?: No Do you have trouble with day-to-day activities such as bathing, preparing meals, shopping, managing finances, etc.?: No Are you currently unemployed and looking for a job?: No Are you interested in more education?: No Currently or been in a relationship where the following occur: I choose not to answer THRIVE Score: 0 ROYCE-7 AMB Questionnaire ROYCE-7 Date ROYCE - 7 assessed: 12/12/24 Source: Developed by Drs. Balbir Marcelino, Helen Vyas, Mike David and colleagues, with an educational barbie from [email or web address]. Review of Systems Const All systems reviewed & are unremarkable except as noted in HPI and below Eyes Reports no additional complaints ENT Reports no additional complaints Card Reports no additional complaints Resp Reports no additional complaints GI Reports no additional complaints Reports no additional complaints Physical exam (Primary Care) Vital Signs: Last Vital Signs Temp 98.2 F 04/18/25 08:43 Pulse 74 04/18/25 08:43 Resp 18 04/18/25 08:43 BP 128/84 04/18/25 08:43 Pulse Ox 97 04/18/25 08:43 Oxygen Delivery Method Room Air 04/18/25 08:43 BMI result Body Mass Index 28.0 Tobacco/Smoking Status: Tobacco use Status Tobacco use date assessed 12/12/24 04/18/25 08:44 Patient Tobacco Use Status Former Tobacco user 04/18/25 08:44 e-Cigarette/Vaping Use Never Used 04/18/25 08:44 Thrive Assessment: Date of Thrive Assessment Date Thrive assessed 12/12/24 04/18/25 08:44 Currently or been in a relationship where the following occur: I choose not to answer Const General: no acute distress HENMT Throat: Yes posterior oropharynx normal Resp Effort & Inspection: normal respiratory effort Auscultation: clear to auscultation bilaterally Cardio Rhythm: regular rhythm Heart sounds: S1 normal heart sound present and S2 normal heart sound present Extrem Other: There is a soft tissue swelling on the dorsum of left hand. There is a tenderness over left MCP 3rd finger joint slightly decreased range of motion, no erythema or warmth Coding Level of Care Code Est Pt Level 3 (77889) Diagnoses DM type 2 (diabetes mellitus, type 2) E11.9 Swelling of joint, hand, left M25.442 Assessment & Plan Assessment & Plan (1) DM type 2 (diabetes mellitus, type 2): Comment: A1C>14% 09/2021 / 5.7% on 02/13/23 Code(s): E11.9 - Type 2 diabetes mellitus without complications Category: Medical Plan: CONTINUE CURRENT MEDICATIONS (2) Swelling of joint, hand, left: Comment: 3rd MCP Code(s): M25.442 - Effusion, left hand Category: Medical Plan: Check arthritis panel, prednisone 40 mg for 3 days then 20 mg for 3 days is prescribed. Orders: Orders Erythrocyte Sedimentation Rate Today M19.90 - Unspecified osteoarthritis, unspecified site Lyme IgG/IgM w/reflex to WB Today M19.90 - Unspecified osteoarthritis, unspecified site Cyclic Citrullinated Peptide Today M19.90 - Unspecified osteoarthritis, unspecified site Rheumatoid Factor Today M19.90 - Unspecified osteoarthritis, unspecified site Uric Acid Today M19.90 - Unspecified osteoarthritis, unspecified site Medications: New prednisone 2 tabl qd for 3 days, then 1 tabl qd for 3 days 20 mg PO DAILY 9 tabs 0RF
== END 2025-04-18 09:39 | disposition home or self-care (01) ==
LOC: HO.HMCC 08:40
PROVIDERS: PCP Internal Medicine; Visit Provider Internal Medicine
DX: E11.9 Type 2 diabetes mellitus without complications (principal); M25.442 Effusion, left hand

== ENCOUNTER 2025-04-18 08:40 | Outpatient (REF) | payer BC, SELFPAY ==
[2025-04-18 10:25] LABS: MANUAL DIFF FLAG NO
[2025-04-18 10:35] LABS: Hematocrit 46.9 % (37.0-47.0); Hemoglobin 15.1 g/dl (12.0-16.0); Imm Gran Abs Auto 0.02 X10*3/uL (0.00-0.03); Imm Gran Pct Auto 0.3 % (0.0-0.4); Lymphocytes Absolute Auto 1.9 X10*3/uL (1.2-4.9); Mean Corpuscular HGB Conc 32.2 g/dl (31.0-35.0); Mean Corpuscular Hemoglobin 27.5 pg (27.0-33.0); Mean Corpuscular Volume 85.3 fL (80.0-98.0); NRBC Abs Auto 0.000 X10*3/uL (0.0-0.012); NRBC Pct Auto 0.0 /100WBC (0.0-0.2); Platelet Count 342 X10*3/uL (160-400); Red Blood Count 5.50 X10*6/uL (4.20-5.50); White Blood Count 7.6 X10*3/uL (4.8-10.8)
[2025-04-18 10:42] LABS: Hemoglobin A1C 159.5805 umol/L; Total Hemoglobin (HGBA1C) 3924.4625 umol/L
[2025-04-18 11:50] LABS: Albumin Level 4.8 g/dL (3.5-5.0); Alkaline Phosphatase 44 U/L (39-117); Anion Gap 12 (12-20); Aspartate Amino Transferase 18 U/L (5-31); Blood Urea Nitrogen 13 mg/dL (9-16); Calcium 10.0 mg/dL (8.4-10.2); Carbon Dioxide 25 mmol/L (22-29); Chloride 105 mmol/L (96-108); Cholesterol 232 mg/dL (<200); Estimated Glomerular Filt Rate > 60; HDL Cholesterol 57 mg/dL (>40); Potassium 4.4 mmol/L (3.3-5.1); Sodium 138 mmol/L (135-145); Total Protein 7.3 g/dL (6.5-8.0); Triglycerides 145 mg/dL (<150); Uric Acid 3.4 mg/dL (2.4-5.7)
[2025-04-18 12:16] LABS: Alanine Aminotransferase 29 U/L (0-31)
[2025-04-19 05:38] LABS: Lyme Abs Screen <0.90 index
== END 2025-04-18 08:41 | disposition home or self-care (01) ==
LOC: HO.HMGCLDS 08:40
PROVIDERS: PCP Internal Medicine; Visit Provider Internal Medicine
DX: E11.9 Type 2 diabetes mellitus without complications (principal); M25.442 Effusion, left hand; M19.90 Unspecified osteoarthritis, unspecified site; I10 Essential (primary) hypertension; E78.5 Hyperlipidemia, unspecified
CPT/HCPCS: 36415; 80053; 80061; 82043; 82570; 83036; 84550; 85025; 85652; 86200; 86431; 86617; 86618

== ENCOUNTER 2025-06-15 08:52 | Outpatient (AMB) | payer BC, SELFPAY ==
[2025-06-15 08:57] VITALS: BP 118/78; PULSE 78; RESP 18; TEMP 36.8; O2SAT 98; BMI 27.6
--- NOTE | 2025-06-15 08:57 | MHC.PC.OV ---
Vital Signs 06/15/25 08:57 Height 5 ft 2 in Weight 151 lb BMI 27.6 BP 118/78 Blood Pressure Location Lt brachial Position Sitting Respiration 18 Pulse 78 Pulse Source Pulse Oximeter Temp 98.2 F Temp Source Oral Pulse Oximetry (%) 98 Oxygen Delivery Method Room Air Intake Visit Reasons: PE Intake Note: Pt is here today for PE. Allergies atorvastatin Adverse Reaction (Intermediate, Verified 06/15/25 08:57) Muscle Pain Medication List - Last Reconciled 06/15/25 by Judy Pierre MD amlodipine (Norvasc) 5 mg PO BID ascorbic acid (vitamin C) (Vitamin C) 500 mg PO DAILY blood sugar diagnostic ([employer] Ultra Test strips) tid blood-glucose meter ([employer] Ultra2 Meter kit) As directed blood-glucose meter ([employer] Ultra2 Meter) As directed empagliflozin (Jardiance) 25 mg PO DAILY hydrocortisone 2.5% (Proctosol HC) 1 appl [place] BID-QID PRN lancets ([employer] UltraSoft Lancets) tid metformin 1,000 mg PO BID metoprolol tartrate 75 mg (1.5 x 50 mg) PO Q12H multivitamin 1 tab PO DAILY olmesartan 40 mg PO DAILY OneTouch Delica Plus Lancet (lancets) Test blood sugar once a day NS rosuvastatin (Crestor) 20 mg PO DAILY Tobacco use date assessed: 06/15/25 Dental Screening Dental Screen Date: 12/12/24 HPI HPI Comments History of Present Illness Details Pt presents for f/u HTN, hyperlipid, DM2. Pt c/o increased stress and anxiety because of work. She is going to [place] in 2 weeks to visit her family with her and son. PFSH Medical History HUTCHINSON (dyspnea on exertion) Hyperlipidemia DM type 2 (diabetes mellitus, type 2) COVID-19 HTN (hypertension) Hypertension Surgical History H/O colonoscopy Family History Mother Arrhythmia Father Diabetes Maternal Grandmother Cancer Social History (Reviewed 06/15/25 @ 09:15 by SUGAR Hercules Household Members: Spouse Housing: House Do you presently have visiting nurse or other home services: No Patient Tobacco Use Status: Former Tobacco user e-Cigarette/Vaping Use: Never Used service: No Current occupational status: employed Cognitive needs: No Hearing needs: No Vision needs: Yes Questionnaire PHQ-9 Over the last 2 weeks, how often have you been bothered by any of the following problems? 1. Little interest or pleasure in doing things: not at all 2. Feeling down, depressed, or hopeless: not at all 3. Trouble falling or staying asleep, or sleeping too much: not at all 4. Feeling tired or having little energy: not at all 5. Poor appetite or overeating: not at all 6. Feeling bad about yourself - or that you are a failure or have let yourself or your family down: not at all 7. Trouble concentrating on things, such as reading the newspaper or watching television: not at all 8. Moving or speaking so slowly that other people could have noticed. Or the opposite - being so fidgety or restless that you have been moving around a lot more than usual: not at all 9. Thoughts that you would be better off or of hurting yourself in some way: not at all Total score: 0 Depression Screening Interpretation: Negative Depression Screening Done: Yes Source: Developed by Drs. Balbir Marcelino, Helen Vyas, Mike David and colleagues, with an educational barbie from [employer]. Thrive Questionnaire Date Thrive assessed: 12/12/24 I am a: Patient What is your living situation today?: I choose not to answer this question Within the past 12 months, did the food you bought not last and you didn't have the money to get more?: Never true Within the past 12 months, did you worry whether your food would run out before you got money to buy more?: I choose not to answer this question Do you have trouble paying for medicines?: No Do you have trouble getting transportation to medical appointments?: No Do you have trouble paying your heating and electricity bill?: No Do you have trouble taking care of your child, family member or friend?: No Do you have trouble with day-to-day activities such as bathing, preparing meals, shopping, managing finances, etc.?: No Are you currently unemployed and looking for a job?: No Are you interested in more education?: No Currently or been in a relationship where the following occur: I choose not to answer THRIVE Score: 0 ROYCE-7 AMB Questionnaire ROYCE-7 Date ROYCE - 7 assessed: 12/12/24 Feeling nervous, anxious, or on edge: 0 = Not at all Not being able to stop or control worryin = Not at all Worrying too much about different things: 0 = Not at all Trouble relaxin = Not at all Being so restless that it is hard to sit still: 0 = Not at all Becoming easily annoyed or irritable: 0 = Not at all Feeling afraid as if something awful might happen: 0 = Not at all Total ROYCE-7 score (0-4 normal; 5-9 mild; 10-14 moderate; 15-21 severe): 0 Source: Developed by Drs. Balbir Marcelino, Helen Vyas, Mike David and colleagues, with an educational barbie from [employer]. Review of Systems Const All systems reviewed & are unremarkable except as noted in HPI and below Eyes Reports no additional complaints ENT Reports no additional complaints Card Reports no additional complaints Resp Reports no additional complaints GI Reports no additional complaints Reports no additional complaints Physical exam (Primary Care) Vital Signs: Last Vital Signs Temp 98.2 F 06/15/25 08:57 Pulse 78 06/15/25 08:57 Resp 18 06/15/25 08:57 BP 118/78 06/15/25 08:57 Pulse Ox 98 06/15/25 08:57 Oxygen Delivery Method Room Air 06/15/25 08:57 BMI result Body Mass Index 27.6 Tobacco/Smoking Status: Tobacco use Status Tobacco use date assessed 06/15/25 06/15/25 09:17 Patient Tobacco Use Status Former Tobacco user 06/15/25 08:57 e-Cigarette/Vaping Use Never Used 06/15/25 08:57 PHQ-9: PHQ-9 Score PHQ-9: Total score 0 06/15/25 09:17 Depression Screening Interpretation: Negative Thrive Assessment: Date of Thrive Assessment Date Thrive assessed 12/12/24 06/15/25 08:57 Currently or been in a relationship where the following occur: I choose not to answer Const General: no acute distress HENMT Head: Yes normal to inspection Mouth: Normal oral and palatal mucosa present Neck Neck: Yes no lymphadenopathy and Yes supple Resp Effort & Inspection: normal respiratory effort Auscultation: clear to auscultation bilaterally Cardio Rhythm: regular rhythm Heart sounds: S1 normal heart sound present and S2 normal heart sound present Coding Level of Care Code Est Pt Level 4 (76599) Diagnoses DM type 2 (diabetes mellitus, type 2) E11.9 HTN (hypertension) I10 Hyperlipidemia E78.5 Anxiety F41.9 Assessment & Plan Assessment & Plan (1) DM type 2 (diabetes mellitus, type 2): Comment: A1C>14% 09/2021 / 5.7% on 02/13/23 Code(s): E11.9 - Type 2 diabetes mellitus without complications Category: Medical Plan: A1c is 5.9, ADA diet regular exercise continue current medications discussed with the patient return in September for physical with a fasting labs before (2) HTN (hypertension): Code(s): I10 - Essential (primary) hypertension Category: Medical Plan: Continue current medications (3) Hyperlipidemia: Comment: Atorvastatin myalgia Code(s): E78.5 - Hyperlipidemia, unspecified Category: Medical Plan: Continue statin and low-cholesterol diet (4) Anxiety: Code(s): F41.9 - Anxiety disorder, unspecified Category: Medical Plan: Restart Zoloft Orders: Orders Lipid Panel 3 Months E11.9 - Type 2 diabetes mellitus without complications, E78.5 - Hyperlipidemia, unspecified, I10 - Essential (primary) hypertension Complete Blood Count Auto Diff 3 Months E11.9 - Type 2 diabetes mellitus without complications, E78.5 - Hyperlipidemia, unspecified, I10 - Essential (primary) hypertension Microalbumin, Random (w Creat) 3 Months E11.9 - Type 2 diabetes mellitus without complications, E78.5 - Hyperlipidemia, unspecified, I10 - Essential (primary) hypertension Comprehensive [place]. Panel Fast 3 Months E11.9 - Type 2 diabetes mellitus without complications, E78.5 - Hyperlipidemia, unspecified, I10 - Essential (primary) hypertension Hemoglobin A1c 3 Months E11.9 - Type 2 diabetes mellitus without complications, E78.5 - Hyperlipidemia, unspecified, I10 - Essential (primary) hypertension Medications: New sertraline (Zoloft) 50 mg PO DAILY 90 tabs 3RF
== END 2025-06-15 10:07 | disposition home or self-care (01) ==
LOC: HO.HMCC 08:53
PROVIDERS: PCP Internal Medicine; Visit Provider Internal Medicine
DX: E11.9 Type 2 diabetes mellitus without complications (principal); I10 Essential (primary) hypertension; E78.5 Hyperlipidemia, unspecified; F41.9 Anxiety disorder, unspecified

== ENCOUNTER 2025-09-08 06:39 | Outpatient (REF) | payer BC, SELFPAY ==
[2025-09-08 11:15] LABS: MANUAL DIFF FLAG NO
[2025-09-08 11:21] LABS: Hematocrit 47.1 % (37.0-47.0); Hemoglobin 15.3 g/dl (12.0-16.0); Imm Gran Abs Auto 0.02 X10*3/uL (0.00-0.03); Imm Gran Pct Auto 0.3 % (0.0-0.4); Lymphocytes Absolute Auto 2.5 X10*3/uL (1.2-4.9); Mean Corpuscular HGB Conc 32.5 g/dl (31.0-35.0); Mean Corpuscular Hemoglobin 28.0 pg (27.0-33.0); Mean Corpuscular Volume 86.1 fL (80.0-98.0); NRBC Abs Auto 0.000 X10*3/uL (0.0-0.012); NRBC Pct Auto 0.0 /100WBC (0.0-0.2); Platelet Count 310 X10*3/uL (160-400); Red Blood Count 5.47 X10*6/uL (4.20-5.50); White Blood Count 6.7 X10*3/uL (4.8-10.8)
[2025-09-08 11:58] LABS: Alanine Aminotransferase 24 U/L (0-31); Albumin Level 4.9 g/dL (3.5-5.0); Alkaline Phosphatase 48 U/L (39-117); Anion Gap 13 (12-20); Aspartate Amino Transferase 26 U/L (5-31); Blood Urea Nitrogen 12 mg/dL (9-16); Calcium 9.6 mg/dL (8.4-10.2); Carbon Dioxide 23 mmol/L (22-29); Chloride 109 mmol/L (96-108); Cholesterol 208 mg/dL (<200); Estimated Glomerular Filt Rate > 60; HDL Cholesterol 46 mg/dL (>40); Potassium 4.7 mmol/L (3.3-5.1); Sodium 140 mmol/L (135-145); Total Protein 7.7 g/dL (6.5-8.0); Triglycerides 124 mg/dL (<150)
[2025-09-08 12:09] LABS: Microalbum/Creatinine Ratio Ur 18.9 ug/mg cr (<30)
== END 2025-09-08 06:40 | disposition home or self-care (01) ==
LOC: HO.HMGCLDS 06:39
PROVIDERS: PCP Internal Medicine; Visit Provider Internal Medicine
DX: E11.9 Type 2 diabetes mellitus without complications (principal); I10 Essential (primary) hypertension; E78.5 Hyperlipidemia, unspecified
CPT/HCPCS: 36415; 80053; 80061; 82043; 82570; 83036; 85025

== ENCOUNTER 2025-09-14 09:10 | Outpatient (AMB) | payer BC, SELFPAY ==
[2025-09-14 09:11] VITALS: BP 122/78; PULSE 87; RESP 17; TEMP 37; O2SAT 98; BMI 27.8
--- NOTE | 2025-09-14 09:11 | A.OFFPC_ITS ---
Vital Signs 09/14/25 09:11 Height 5 ft 2 in Weight 152 lb BMI 27.8 BP 122/78 Blood Pressure Location Lt brachial Position Sitting Respiration 17 Pulse 87 Pulse Source Pulse Oximeter Temp 98.6 F Temp Source Oral Pulse Oximetry (%) 98 Oxygen Delivery Method Room Air Intake Visit Reasons: 3m follow up Intake Note: Pt is here today for 3 months follow up visit. Allergies atorvastatin Adverse Reaction (Intermediate, Verified 09/14/25 09:12) Muscle Pain Medication List - Last Reconciled 09/14/25 by Judy Pierre MD amlodipine (Norvasc) 5 mg PO BID ascorbic acid (vitamin C) (Vitamin C) 500 mg PO DAILY blood sugar diagnostic ([employer] Ultra Test strips) tid blood-glucose meter ([employer] Ultra2 Meter kit) As directed blood-glucose meter ([employer]Touch Ultra2 Meter) As directed empagliflozin (Jardiance) 25 mg PO DAILY ezetimibe (Zetia) 10 mg PO DAILY hydrocortisone 2.5% (Proctosol HC) 1 appl [place] BID-QID PRN lancets ([employer]Touch UltraSoft Lancets) tid metformin 1,000 mg PO BID metoprolol tartrate 75 mg (1.5 x 50 mg) PO Q12H multivitamin 1 tab PO DAILY olmesartan 40 mg PO DAILY OneTouch Delica Plus Lancet (lancets) Test blood sugar once a day NS rosuvastatin (Crestor) 20 mg PO DAILY sertraline (Zoloft) 50 mg PO DAILY Tobacco use date assessed: 09/14/25 Dental Screening Dental Screen Date: 12/12/24 HPI 3m follow up HPI Details Patient presents for the follow-up on hypertension hyperlipidemia type 2 diabetes stable on current medications PFSH Medical History HUTCHINSON (dyspnea on exertion) Hyperlipidemia DM type 2 (diabetes mellitus, type 2) COVID-19 HTN (hypertension) Hypertension Surgical History H/O colonoscopy Family History Mother Arrhythmia Father Diabetes Maternal Grandmother Cancer Social History (Reviewed 09/14/25 @ 09:21 by SUGAR Hercules Household Members: Spouse Housing: House Do you presently have visiting nurse or other home services: No Patient Tobacco Use Status: Former Tobacco user e-Cigarette/Vaping Use: Never Used service: No Current occupational status: employed Cognitive needs: No Hearing needs: No Vision needs: Yes Questionnaire PHQ-9 Over the last 2 weeks, how often have you been bothered by any of the following problems? 1. Little interest or pleasure in doing things: not at all 2. Feeling down, depressed, or hopeless: not at all 3. Trouble falling or staying asleep, or sleeping too much: not at all 4. Feeling tired or having little energy: not at all 5. Poor appetite or overeating: not at all 6. Feeling bad about yourself - or that you are a failure or have let yourself or your family down: not at all 7. Trouble concentrating on things, such as reading the newspaper or watching television: not at all 8. Moving or speaking so slowly that other people could have noticed. Or the opposite - being so fidgety or restless that you have been moving around a lot more than usual: not at all 9. Thoughts that you would be better off or of hurting yourself in some way: not at all Total score: 0 Depression Screening Interpretation: Negative Depression Screening Done: Yes Source: Developed by Drs. Balbir Marcelino, Helen Vyas, Mike David and colleagues, with an educational barbie from [employer]. Thrive Questionnaire Date Thrive assessed: 12/12/24 I am a: Patient What is your living situation today?: I choose not to answer this question Within the past 12 months, did the food you bought not last and you didn't have the money to get more?: Never true Within the past 12 months, did you worry whether your food would run out before you got money to buy more?: I choose not to answer this question Do you have trouble paying for medicines?: No Do you have trouble getting transportation to medical appointments?: No Do you have trouble paying your heating and electricity bill?: No Do you have trouble taking care of your child, family member or friend?: No Do you have trouble with day-to-day activities such as bathing, preparing meals, shopping, managing finances, etc.?: No Are you currently unemployed and looking for a job?: No Are you interested in more education?: No Currently or been in a relationship where the following occur: I choose not to answer THRIVE Score: 0 ROYCE-7 AMB Questionnaire ROYCE-7 Date ROYCE - 7 assessed: 12/12/24 Source: Developed by Drs. Balbir Marcelino, Helen Vyas, Mike David and colleagues, with an educational barbie from [employer]. Review of Systems Const All systems reviewed & are unremarkable except as noted in HPI and below Eyes Reports no additional complaints ENT Reports no additional complaints Card Reports no additional complaints Resp Reports no additional complaints GI Reports no additional complaints Reports no additional complaints Physical exam (Primary Care) Vital Signs: Last Vital Signs Temp 98.6 F 09/14/25 09:11 Pulse 87 09/14/25 09:11 Resp 17 09/14/25 09:11 BP 122/78 09/14/25 09:11 Pulse Ox 98 09/14/25 09:11 Oxygen Delivery Method Room Air 09/14/25 09:11 BMI result Body Mass Index 27.8 Tobacco/Smoking Status: Tobacco use Status Tobacco use date assessed 09/14/25 09/14/25 09:14 Patient Tobacco Use Status Former Tobacco user 09/14/25 09:14 e-Cigarette/Vaping Use Never Used 09/14/25 09:14 PHQ-9: PHQ-9 Score PHQ-9: Total score 0 09/14/25 09:32 Depression Screening Interpretation: Negative Thrive Assessment: Date of Thrive Assessment Date Thrive assessed 12/12/24 09/14/25 09:14 Currently or been in a relationship where the following occur: I choose not to answer Const General: no acute distress HENMT Head: Yes normal to inspection Mouth: Normal oral and palatal mucosa present Eyes General: appearance normal, both eyes and all related structures Neck Neck: Yes supple Resp Effort & Inspection: normal respiratory effort Auscultation: clear to auscultation bilaterally Cardio Rhythm: regular rhythm Heart sounds: S1 normal heart sound present and S2 normal heart sound present GI Inspection: Yes normal to inspection Coding Level of Care Code Est Pt Level 4 (56642) Diagnoses HTN (hypertension) I10 DM type 2 (diabetes mellitus, type 2) E11.9 Hyperlipidemia E78.5 Assessment & Plan Assessment & Plan (1) HTN (hypertension): Code(s): I10 - Essential (primary) hypertension Category: Medical Plan: Continue current medications (2) DM type 2 (diabetes mellitus, type 2): Comment: A1C>14% 09/2021 / 5.7% on 02/13/23 Code(s): E11.9 - Type 2 diabetes mellitus without complications Category: Medical Plan: A1c is 5.7, continue current medications ADA diet regular exercise follow-up in 4 months with a fasting labs before (3) Hyperlipidemia: Comment: Atorvastatin caused myalgia, patient did not tolerate 40 mg of crestor because of myalgia Code(s): E78.5 - Hyperlipidemia, unspecified Category: Medical Plan: Add Zetia to 20 mg of Crestor ,continue low-cholesterol diet and check lipid profile Orders: Orders Comprehensive [place]. Panel Fast 4 Months E11.9 - Type 2 diabetes mellitus without complications, I10 - Essential (primary) hypertension Complete Blood Count Auto Diff 4 Months E11.9 - Type 2 diabetes mellitus without complications, I10 - Essential (primary) hypertension Hemoglobin A1c 4 Months E11.9 - Type 2 diabetes mellitus without complications, I10 - Essential (primary) hypertension Microalbumin, Random (w Creat) 4 Months E11.9 - Type 2 diabetes mellitus without complications, I10 - Essential (primary) hypertension Lipid Panel 4 Months E11.9 - Type 2 diabetes mellitus without complications, I10 - Essential (primary) hypertension LDL Cholesterol Direct 4 Months E11.9 - Type 2 diabetes mellitus without complications, I10 - Essential (primary) hypertension Medications: New ezetimibe (Zetia) 10 mg PO DAILY 90 tabs 3RF
== END 2025-09-14 09:57 | disposition home or self-care (01) ==
LOC: HO.HMCC 09:11
PROVIDERS: PCP Internal Medicine; Visit Provider Internal Medicine
DX: I10 Essential (primary) hypertension (principal); E11.9 Type 2 diabetes mellitus without complications; E78.5 Hyperlipidemia, unspecified